=== PATIENT | female | born 1980 | race Caucasian/White ===

== ENCOUNTER → 2017-04-19 | Day surgery (SDC) | payer OTHER ==
[~2017-04-19] MED LIST: FENTANYL CITRATE/PF 100MCG/2 ML INJ ONE; HYOSCYAMINE SULFATE 0.5 MG/ML AMP ONE; LEVOTHYROXINE; LIDOCAINE HCL 2% LOCAL INJ 5 ML SDV VIAL INJ ONE; MIDAZOLAM HCL 2 MG/2 ML VIAL ONE; MULTIVITAMINS1 EAC7 PO; PROPOFOL IV EMULSION 10 MG/ML 50 ML VIAL ONE; VITAMIN A PO; VITAMIN B12 PO; VITAMIN C PO
--- NOTE | 2017-04-19 10:06 | Operative Report ---
DATE OF PROCEDURE: April 19, 2017 REFERRING PHYSICIAN: Dr. Sumanth Carlson PROCEDURES PERFORMED 1. Esophagogastroduodenoscopy with biopsies. 2. Colonoscopy with polypectomy. INDICATIONS FOR EGD: Upper abdominal pain and nausea. INDICATIONS FOR COLONOSCOPY: Colorectal cancer screening, personal history of colon polyps, history of bright red blood per rectum, and constipation. MEDICATION: Patient was done under MAC. Please see anesthesiologist's note. PROCEDURE: With the patient in the left lateral decubitus position, the flexible fiberoptic Olympus gastroscope was introduced into the esophagus under direct visualization without any difficulty. There were longitudinal furrows noted in the esophagus, which are compatible with eosinophilic esophagitis and biopsies were obtained. The scope was then advanced with ease into the stomach. The patient is status post Byron-en-Y. Anastomosis appeared intact. There was some patchy intense erythema and low-grade edema noted in the gastric stump, and biopsies were obtained and sent to stain for H. pylori. The enteric loop appeared to be patent. The scope was then withdrawn back into the stomach and retroflexed. Mucosa overlying the fundus and the cardia appeared to be within normal limits. The scope was then straightened out. The stomach was decompressed. The scope was subsequently withdrawn. Patient tolerated the procedure well. IMPRESSION 1. Rule out eosinophilic esophagitis. 2. Status post Byron-en-Y, anastomosis is intact. 3. Gastritis, gastric stump. Biopsies obtained and sent to stain for Helicobacter pylori. PLAN: Follow up histology. Initiate Protonix 40 mg 1 p.o. q.a.m. a.c. Patient was then turned around. After adequate lubrication of the anal canal, a flexible fiberoptic Olympus colonoscope was inserted into the rectum with ease and advanced all the way to the cecum. It was then withdrawn slowly. Mucosa overlying the cecum appeared to be within normal limits. One polyp was snared from the ascending colon. The transverse colon appeared to be within normal limits. One polyp was hot biopsied from the descending colon. One polyp was snared and 1 polyp was hot biopsied from the sigmoid colon. The rectum appeared to be within normal limits. The scope was then retroflexed into the distal rectum. Moderate size internal hemorrhoids were noted, none of which was actively bleeding. The scope was then straightened out. The rectosigmoid area, as well as the distal rectal area were decompressed. The scope was subsequently withdrawn. Patient tolerated the procedure well. IMPRESSION 1. Ascending colon polyp, snared. 2. Descending colon polyp, hot biopsied. 3. Sigmoid colon polyps times 2, one snared one hot biopsied. 4. Internal hemorrhoids, none actively bleeding. PLAN: Follow up histology. Initiate high-fiber and low-fat diet. Initiate high-fiber supplement. Start Linzess 145 mcg 1 p.o. q.a.m. a.c. Patient will need a followup colonoscopy in 2-3 years. Job#: [id number] [place] cc:JEREMIAS CARLSON DO
== END | disposition home or self-care (01) ==
LOC: OR 06:08
PROVIDERS: ATTEND Internal Medicine Gastroenterology
DX: K29.70 Gastritis, unspecified, without bleeding (principal); D12.2 Benign neoplasm of ascending colon; Z98.84 Bariatric surgery status; K22.8 Other specified diseases of esophagus; K64.8 Other hemorrhoids; K59.00 Constipation, unspecified; N20.0 Calculus of kidney; Z68.25 Body mass index [BMI] 25.0-25.9, adult
CPT/HCPCS: 43239; 45384; 45385; J1980; J2001; J2250

== ENCOUNTER 2017-05-18 15:38 | Observation (INO) | payer OTHER ==
[~2017-05-18] VITALS: Ht 157.5 cm; Wt 59.0 kg
[~2017-05-18 15:38] MED LIST changes: -FENTANYL CITRATE/PF 100MCG/2 ML INJ ONE; -HYOSCYAMINE SULFATE 0.5 MG/ML AMP ONE; -LIDOCAINE HCL 2% LOCAL INJ 5 ML SDV VIAL INJ ONE; -MIDAZOLAM HCL 2 MG/2 ML VIAL ONE; -PROPOFOL IV EMULSION 10 MG/ML 50 ML VIAL ONE
[2017-05-18] MEDS: SODIUM CHLORIDE 0.9% 1000ML 1,000 ML IV SCH ×2 (16:00→23:47)
[2017-05-18 16:23] VITALS: BP 113/70
[2017-05-18] MEDS ORDERED: OMEPRAZOLE20 MG (16:29)
[2017-05-18] MEDS: HYDROMORPHONE 1MG/1ML INJ IV PRN ×2 (17:40→23:44)
[2017-05-18 20:00] VITALS: BP 106/60
[2017-05-19] VITALS (9 sets, daily range): BP systolic 99–111; BP diastolic 53–59
[2017-05-19] MEDS ORDERED: DONNATAL/LIDOCAINE/MAALOX 30 ML SUSP PO ONE (03:30)
[2017-05-19] MEDS ORDERED: MAGNESIUM/ALUMINUM/SIMETHICONE 30 ML UDC PO ONE (04:20)
[2017-05-19] MEDS ORDERED: BELLADONNA ALK/PHENOBARBITAL 5 ML UDC PO ONE (04:21)
[2017-05-19] MEDS ORDERED: LIDOCAINE VISC 2% SOLN 100ML BLT PO ONE (04:22)
[2017-05-19] MEDS ORDERED: LIDOCAINE VISC 2% SOLN 15 ML UDC PO ONE (04:30)
[2017-05-19] MEDS ORDERED: PANTOPRAZOLE 40 MG 10ML VIAL IV STA (04:36)
[2017-05-19] MEDS ORDERED: ONDANSETRON HCL INJ 2 MG/ML VIAL IV PRN (05:00)
[2017-05-19] MEDS: PANTOPRAZOL 40MG/SOD CHL 0.9% 250 ML IV SCH ×3 (05:10→21:17)
[2017-05-19 05:25] LABS: CLARITY,URINE CLEAR (CLEAR); COLOR,URINE YELLOW (YELLOW); KETONES,URINE TRACE (NEGATIVE); LEUKOCYTE ESTERASE ,URINE NEGATIVE (NEGATIVE); NITRITE,URINE NEGATIVE (NEGATIVE); PROTEIN,URINE DIPSTICK NEGATIVE (NEGATIVE); URINE UROBILINOGEN 1 mg/dL (0.2 - 1)
[2017-05-19 05:26] LABS: BILIRUBIN,URINE NEGATIVE (NEGATIVE)
[2017-05-19 05:50] LABS: BACTERIA,URINE RARE /HPF; EPITHELIAL CELLS,URINE FEW /LPF; RBC,URINE 0-5 /HPF (0-5); WBC,URINE (MAN) 0-5 /HPF (0-5)
[2017-05-19 06:57] LABS: BASOPHILS % 0.9 % (0.0-1.0); EOSINOPHILS # (AUTO) 0.2 (0.0-0.4); EOSINOPHILS % 3.9 % (0.0-6.0); HEMATOCRIT 31.9 % (34.2-44.1); LYMPHOCYTES # (AUTO) 2.2 (1.0-3.2); LYMPHOCYTES % 46.1 % (18.0-39.1); MEAN CORPUSCULAR HEMOGLOBIN 32.1 pg (28-32); MEAN CORPUSCULAR HGB CONC 34.5 g/dL (31-35); MONOCYTES # (AUTO) 0.6 (0.2-0.8); MONOCYTES % 11.8 % (4.4-11.3); NEUTROPHILS # (AUTO) 1.7 (2.1-6.9); NEUTROPHILS % 37.1 % (38.7-80.0); PLATELET COUNT 154 x10e3/uL (140-360); RED BLOOD COUNT 3.43 x10e6/uL (3.6-5.1); RED CELL DISTRIBUTION WIDTH 11.9 % (11.7-14.4)
[2017-05-19 07:15] LABS: ALANINE AMINOTRANSFERASE 23 IU/L (0-55); ALBUMIN/GLOBULIN RATIO 1.4 (0.8-2.0); ALKALINE PHOSPHATASE 47 IU/L (40-150); ANION GAP 7.1 mmol/L (8-16); BLOOD UREA NITROGEN 8 mg/dL (7-26); BUN/CREATININE RATIO 12 (6-25); CALCIUM 8.3 mg/dL (8.4-10.2); CARBON DIOXIDE 27 mmol/L (22-29); CHLORIDE 110 mmol/L (98-107); CREATININE, SERUM 0.67 mg/dL (0.57-1.11); EST GLOMERULAR FILTRATION RATE > 60 ML/MIN (60-); GLUCOSE 84 mg/dL (74-118); POTASSIUM 4.1 mmol/L (3.5-5.1); SODIUM 140 mmol/L (136-145)
--- NOTE | 2017-05-19 07:15 | History and Physical ---
GI SPECIALIST: Dr. Héctor Arambula PRIMARY CARE PHYSICIAN: Dr. Vasquez CHIEF COMPLAINT: Abdominal pain. HISTORY OF PRESENT ILLNESS: This is a 37-year-old woman with a history of obesity, status post laparoscopic cholecystectomy. The patient had undergone a Byron-en-Y for morbid obesity, now developing severe left-sided abdominal pain while attending to her child to the clinic. The patient states that the pain was so severe she was unable to walk and had difficulty in getting home. She had severe nausea, but no vomiting. Denies any diarrhea or fever. She had mild chills. The pain has persisted overnight. She is admitted for further evaluation and management. Denies any chest pain. PAST MEDICAL HISTORY: Obesity, status post banding in 2012, status post revision in 2017 with some resection of the intestine/Byron-en-Y, cervical cancer in 2017, status post hysterectomy, hypothyroidism, and colonic polyps. PAST SURGICAL HISTORY: Cholecystectomy, , sinus surgery, banding in 2012, status post revision and Byron-en-Y in 2016, hysterectomy in 2017, ureteral stent. ALLERGIES: PER ELECTRONIC MEDICAL RECORD. FAMILY HISTORY/SOCIAL HISTORY: The patient is . She has 3 children. No alcohol, illicits or cigarettes. Crohn's in a child. MEDICATIONS: Per electronic medical record. REVIEW OF SYSTEMS: Denies any dizziness or chest pain. PHYSICAL EXAMINATION VITAL SIGNS: Have been reviewed. GENERAL: A tired-appearing woman resting in bed. HEENT: Anicteric. Pupils respond to light. No oral lesions. CARDIOVASCULAR: Normal S1 and S2. LUNGS: Moderate breath sounds. ABDOMEN: Soft and nondistended. She has mild tenderness in the upper abdomen just slightly left of the midline. EXTREMITIES: No edema or calf tenderness. NEUROLOGICAL: Alert and oriented times 3. Moving all extremities. SKIN: Dry. PSYCHIATRIC: Normal affect. LABS: Reviewed. MEDICATIONS: Reviewed. ASSESSMENT AND PLAN: This is a 37-year-old woman with: 1. Abdominal pain: Will treat with p.r.n. pain medications. Computerized tomography scan at the outside facility of the abdomen and pelvis with contrast showed no acute abnormality. 2. Intractable nausea: P.r.n. antiemetics. 3. Hypothyroidism: Will check a TSH. 4. Prophylaxis: Will use proton pump inhibitor and sequential compression devices. 5. Disposition: Follow up gastroenterology recommendations. May need endoscopy. Will defer to gastroenterology services. Job#: [id number] RI
[2017-05-19] MEDS: HYDROMORPHONE 1MG/1ML INJ IV PRN ×2 (07:27→11:50)
[2017-05-19 07:42] LABS: AMYLASE 17 U/L (25-125); LIPASE 11 U/L (8-78)
[2017-05-19] MEDS: SODIUM CHLORIDE 0.9% 1000ML 1,000 ML IV SCH ×2 (11:50→23:45)
[2017-05-19] MEDS ORDERED: ACETAMINOPHEN 325 MG TAB PO PRN (15:45)
[2017-05-19] MEDS ORDERED: ACETAMINOPHEN 1000 MG/100 ML IV PRN (20:15)
[2017-05-20] VITALS: BP 102/52
[2017-05-20] MEDS: SODIUM CHLORIDE 0.9% 1000ML 1,000 ML IV SCH ×2 (01:04→11:23)
[2017-05-20] MEDS: PANTOPRAZOL 40MG/SOD CHL 0.9% 250 ML IV SCH (02:20)
[2017-05-20 04:00] VITALS: BP 115/56
[2017-05-20 07:30] VITALS: BP 115/56
[2017-05-20] MEDS: SUCRALFATE 1 GM TAB PO SCH ×2 (07:35→12:09)
[2017-05-20 07:54] VITALS: BP 107/55
[2017-05-20 11:52] VITALS: BP 108/59
[2017-05-20 16:05] VITALS: BP 108/58
[2017-05-20] MEDS ORDERED: CARAFATE1 GM/10 ML PO (16:06)
== END 2017-05-20 16:25 | disposition home or self-care (01) ==
LOC: MED/SURG 15:38
PROVIDERS: ADMIT Internal Medicine; ATTEND Internal Medicine
DX: R10.13 Epigastric pain (principal); R11.2 Nausea with vomiting, unspecified; E03.9 Hypothyroidism, unspecified; Z98.84 Bariatric surgery status; Z90.49 Acquired absence of other specified parts of digestive tract; K63.5 Polyp of colon
CPT/HCPCS: 36415; 80053; 81001; 82150; 83690; 84443; 85025; G0378 ×3; J1170 ×2; J2405; J7030 ×3

== ENCOUNTER 2018-02-16 10:07 | Emergency (ER) | payer OTHER ==
[~2018-02-16] VITALS: Ht 160 cm; Wt 49.0 kg
[~2018-02-16 10:07] MED LIST changes: +CARAFATE1 GM/10 ML PO; +OMEPRAZOLE20 MG
[2018-02-16] MEDS ORDERED: SOD PHOSPHATE/SOD BIPHOSPHATE ENEMA 132 ML BTL PR ONE (10:45)
[2018-02-16 11:02] LABS: COLOR,URINE YELLOW (YELLOW)
[2018-02-16 11:03] LABS: CLARITY,URINE SL CLOUDY (CLEAR)
[2018-02-16 11:04] LABS: BILIRUBIN,URINE NEGATIVE (NEGATIVE); KETONES,URINE NEGATIVE (NEGATIVE); LEUKOCYTE ESTERASE ,URINE NEGATIVE (NEGATIVE); NITRITE,URINE NEGATIVE (NEGATIVE); PROTEIN,URINE DIPSTICK NEGATIVE (NEGATIVE); URINE UROBILINOGEN 0.2 mg/dL (0.2 - 1)
[2018-02-16 11:05] LABS: EPITHELIAL CELLS,URINE RARE /LPF; MUCUS,URINE RARE (RARE)
--- NOTE | 2018-02-16 12:15 | NUR ---
per MARK Baxter ok for pt to self administer; pt self administered fleet enema
[2018-02-16] MEDS ORDERED: HYOSCYAMINE SULFATE 0.5 MG/ML INJ IV ONE (12:45)
[2018-02-16 12:46] LABS: BASOPHILS # (AUTO) 0.1 (0.0-0.1); EOSINOPHILS # (AUTO) 0.2 (0.0-0.4); EOSINOPHILS % 3.9 % (0.0-6.0); HEMATOCRIT 40.4 % (34.2-44.1); LYMPHOCYTES # (AUTO) 1.7 (1.0-3.2); LYMPHOCYTES % 34.6 % (18.0-39.1); MEAN CORPUSCULAR HEMOGLOBIN 31.9 pg (28-32); MEAN CORPUSCULAR HGB CONC 34.7 g/dL (31-35); MONOCYTES # (AUTO) 0.4 (0.2-0.8); MONOCYTES % 8.7 % (4.4-11.3); NEUTROPHILS # (AUTO) 2.5 (2.1-6.9); NEUTROPHILS % 51.6 % (38.7-80.0); PLATELET COUNT 195 x10e3/uL (140-360); RED BLOOD COUNT 4.39 x10e6/uL (3.6-5.1); RED CELL DISTRIBUTION WIDTH 11.9 % (11.7-14.4)
[2018-02-16 13:02] LABS: ALANINE AMINOTRANSFERASE 47 IU/L (0-55); ALBUMIN 4.2 g/dL (3.5-5.0); ALBUMIN/GLOBULIN RATIO 1.5 (0.8-2.0); ALKALINE PHOSPHATASE 70 IU/L (40-150); AMYLASE 23 U/L (25-125); ANION GAP 14.3 mmol/L (8-16); BLOOD UREA NITROGEN 9 mg/dL (7-26); BUN/CREATININE RATIO 11 (6-25); CALCIUM 9.3 mg/dL (8.4-10.2); CARBON DIOXIDE 24 mmol/L (22-29); CHLORIDE 102 mmol/L (98-107); CREATININE, SERUM 0.84 mg/dL (0.57-1.11); EST GLOMERULAR FILTRATION RATE > 60 ML/MIN (60-); GLUCOSE 78 mg/dL (74-118); LIPASE 16 U/L (8-78); MAGNESIUM 2.4 MG/DL (1.3-2.1); POTASSIUM 3.3 mmol/L (3.5-5.1); SODIUM 137 mmol/L (136-145)
[2018-02-16] MEDS ORDERED: POTASSIUM CHLORIDE 20 MEQ TAB CR PO STA (13:15)
[2018-02-16 14:17] VITALS: BP 106/70
--- NOTE | 2018-02-16 14:17 | NUR ---
PER MARK HI PT NOTED EATING CHIC HANS EARLBATSHEVA AT BEDSIDE
[2018-02-17] MEDS ORDERED: LEVSIN0.125 MG PO (11:18)
[2018-02-17] MEDS ORDERED: LINZESS PO (11:18)
[2018-02-17] MEDS ORDERED: PANTOPRAZOLE SO40 MG PO (11:18)
[2018-02-17] MEDS ORDERED: ZOFRAN4 MG PO (11:18)
[2018-02-17] MEDS ORDERED: REGLAN10 MG PO (11:19)
== END 2018-02-16 14:24 | disposition home or self-care (01) ==
LOC: ER 10:19
DX: R10.13 Epigastric pain (principal); R10.84 Generalized abdominal pain; R11.0 Nausea; K59.00 Constipation, unspecified; E87.6 Hypokalemia; K52.9 Noninfective gastroenteritis and colitis, unspecified
CPT/HCPCS: 36415; 80053; 81001; 82150; 83690; 83735; 85025; 87086; 99284

== ENCOUNTER → 2018-02-18 | Day surgery (SDC) | payer OTHER ==
[~2018-02-18] MED LIST changes: +FENTANYL CITRATE/PF 100MCG/2 ML INJ ONE; +HYOSCYAMINE SULFATE 0.5 MG/ML INJ ONE; +LEVSIN0.125 MG PO; +LIDOCAINE HCL 2% LOCAL INJ 5 ML SDV VIAL INJ ONE; +LINZESS PO; +METOCLOPRAMIDE HCL 10 MG/2ML VIAL ONE; +MIDAZOLAM HCL 2 MG/2 ML VIAL ONE; +PANTOPRAZOLE SO40 MG PO; +PROPOFOL IV EMULSION 10 MG/ML 50 ML VIAL ONE; +REGLAN10 MG PO; +ZOFRAN4 MG PO
[2018-02-18 20:10] VITALS: BP 105/78
--- NOTE | 2018-02-18 20:43 | Operative Report ---
DATE OF PROCEDURE: February 18, 2018 REFERRING PHYSICIAN: Dr. Jeremias Carlson. PROCEDURES PERFORMED 1. EGD with biopsies. 2. Colonoscopy with polypectomy. INDICATIONS FOR ESOPHAGOGASTRODUODENOSCOPY: Upper abdominal pain, nausea, and vomiting. INDICATIONS FOR COLONOSCOPY: Lower abdominal pain, severe constipation, and history of colon polyps. MEDICATION: Patient was done under MAC. Please see anesthesiologist's note. PROCEDURE: With the patient in left lateral decubitus position, a flexible fiberoptic Olympus gastroscope was introduced into the esophagus under direct visualization without any difficulty. There was some patchy erythema noted in distal esophagus. GE junction was noted to be at 37 cm from the incisors. The scope was then advanced with ease into the stomach and at approximately 10 cm distal to the lower esophageal sphincter, an intact Byron-en-Y anastomosis was noted. There was a marginal ulcer just below the anastomosis. There were no active bleeding nor stigmata of recent hemorrhage. The efferent loop was patent. The mucosa overlying the gastric stump revealed patchy erythema and moderate edema, and biopsies were obtained and sent to stain for H. pylori. The scope was subsequently withdrawn. Patient tolerated the procedure well. IMPRESSION 1. Mild distal esophagitis. 2. Stump gastritis. 3. Status post Byron-en-Y anastomosis intact. 4. Marginal ulcer without active bleeding or stigmata of recent hemorrhage. PLAN: Follow up histology. Increase Protonix to 40 mg 1 p.o. a.c. b.i.d. Patient was then turned around and after adequate lubrication of the anal canal, a flexible fiberoptic Olympus colonoscope was advanced all the way from the rectum to the cecum with some difficulty and the colon was excessively tortuous and sharply angulated and was difficult to negotiate and was suboptimally visualized. The scope was then withdrawn slowly. Whatever was visualized and mucosa overlying the cecum, ascending colon, transverse colon, descending colon, and sigmoid colon grossly appeared to be within normal limits. There was no obvious obstructing or constricting lesions. A minute polyp was hot biopsied from the proximal rectum. The scope was then retroflexed into the distal rectum and small internal hemorrhoids were noted, none of which was actively bleeding. The scope was then straightened out and was subsequently withdrawn. Patient tolerated the procedure well. IMPRESSION 1. Colon excessively tortuous and sharply angulated, suboptimally visualized. 2. Rectal polyp, hot biopsied. 3. Internal hemorrhoids, none actively bleeding. PLAN: Follow up histology. Take Linzess or initiate Linzess 290 mcg 1 p.o. q.a.m. a.c., increase water intake to 64 ounces of water a day. Patient might benefit from a followup colonoscopy in 3 to 5 years. Job#: [id number] KENZIE cc:JEREMIAS CARLSON DO
== END | disposition home or self-care (01) ==
LOC: OR 13:43
PROVIDERS: ATTEND Internal Medicine Gastroenterology
DX: K29.70 Gastritis, unspecified, without bleeding (principal); D12.2 Benign neoplasm of ascending colon; K62.1 Rectal polyp; K25.9 Gastric ulcer, unspecified as acute or chronic, without hemorrhage or perforation; K21.9 Gastro-esophageal reflux disease without esophagitis; K56.609 Unspecified intestinal obstruction, unspecified as to partial versus complete obstruction; K59.00 Constipation, unspecified; K20.9 Esophagitis, unspecified; Z98.84 Bariatric surgery status; K64.8 Other hemorrhoids; D64.9 Anemia, unspecified; R53.83 Other fatigue; Z88.6 Allergy status to analgesic agent
CPT/HCPCS: 43239; 45384; J1980; J2001; J2250; J2765

== ENCOUNTER → 2018-06-15 | Outpatient (CLI) | payer OTHER ==
[~2018-06-15] MED LIST changes: -FENTANYL CITRATE/PF 100MCG/2 ML INJ ONE; -HYOSCYAMINE SULFATE 0.5 MG/ML INJ ONE; -LIDOCAINE HCL 2% LOCAL INJ 5 ML SDV VIAL INJ ONE; -METOCLOPRAMIDE HCL 10 MG/2ML VIAL ONE; -MIDAZOLAM HCL 2 MG/2 ML VIAL ONE; -PROPOFOL IV EMULSION 10 MG/ML 50 ML VIAL ONE
--- NOTE | 2018-06-15 09:59 | Diagnostic Imaging Report ---
EXAM: US ABDOMEN COMPLETE INDICATION: Left upper quadrant pain. COMPARISON: None TECHNIQUE: Transverse and longitudinal lora scale and color doppler sonographic images of the abdomen were obtained. FINDINGS: LIVER 11.6 cm in the right midclavicular line. Normal echogenicity of the liver with normal contour, no masses. SPLEEN 9.7 cm in maximum diameter. Normal echogenicity, no masses. GALLBLADDER Status post cholecystectomy. BILE DUCTS No intrahepatic biliary dilation. Common bile duct measures 0.6 cm. PANCREAS: Visualized portions are normal. RIGHT KIDNEY: 11.2 cm Echogenicity: Normal Collecting System: No hydronephrosis Stones: None Cyst/Mass: None LEFT KIDNEY: 10.7 cm Echogenicity: Normal Collecting System: No hydronephrosis Stones: None Cyst/Mass: None VESSELS: Aorta: Visualized portions are within normal size limits Inferior Vena Cava: Visualized portions are normal Main Portal Vein: 1.3 cm, normal size with hepatopetal flow. FREE FLUID: None IMPRESSION: Mildly prominent common bile duct, likely reflecting post cholecystectomy reservoir effect. Signed by: Dr. Chayo Vaz MD on 06/15/2018 9:56 AM
== END ==
LOC: US 08:55
PROVIDERS: ATTEND Internal Medicine Gastroenterology
DX: R10.12 Left upper quadrant pain (principal)
CPT/HCPCS: 76700

== ENCOUNTER 2018-10-18 18:07 | Emergency (ER) | payer OTHER ==
[~2018-10-18] VITALS: Ht 160 cm; Wt 49.0 kg
--- OUTSIDE RECORDS SUMMARY | 2018-10-18 18:10 | XMS REPORT ---
Author Author [facility] Address Unknown Phone Unavailable Care Team Providers Care Is Technician Name Role Phone BRIE JAMES Unavailable Unavailable Problems This patient has no known problems. Allergies, Adverse Reactions, Alerts This patient has no known allergies or adverse reactions. Medications This patient has no known medications. Results Test Description Test Time Test Comments Text Results Atomic Results Result Comments US ABDOMEN COMPLETE 2018-06-15 09:51:00 [facility] [address] [place] [address] Patient Name: LEISA ORTIZ MR #: [id number] : 1980 Age/Sex: 38/F Req #: [id number] Adm Physician: Ordered by: BRIE JAMES MD Report #: [id number] Location: Room/Bed: Procedure: [id number] US/US ABDOMEN COMPLETE Exam Date: 06/15/18 Exam Time: 925 REPORT STATUS: Signed EXAM: US ABDOMEN COMPLETE INDICATION: Left upper quadrant pain. COMPARISON: None TECHNIQUE: Transverse and longitudinal lora scale and color doppler sonographic images of the abdomen were obtained. FINDINGS: LIVER 11.6 cm in the right midclavicular line. Normal echogenicity of the liver with normal contour, no masses. SPLEEN 9.7 cm in maximum diameter. Normal echogenicity, no masses. GALLBLADDER Status post cholecystectomy. BILE DUCTS No intrahepatic biliary dilation. Common bile duct measures 0.6 cm. PANCREAS: Visualized portions are normal. RIGHT KIDNEY: 11.2 cm Echogenicity: Normal Collecting System: No hydronephrosis Stones: None Cyst/Mass: None LEFT KIDNEY: 10.7 cm Echogenicity: Normal Collecting System: No hydronephrosis Stones: None Cyst/Mass: None VESSELS: Aorta: Visualized portions are within normal size limits Inferior Vena Cava: Visualized portions are normal Main Portal Vein: 1.3 cm, normal size with hepatopetal flow. FREE FLUID: None IMPRESSION: Mildly prominent common bile duct, likely reflecting post cholecystectomy reservoir effect. Signed by: Dr. Dc Hoffman MD on 06/15/2018 9:56 AM Dictated By: DC HOFFMAN MD Transcribed By: LOUIE on 06/15/18955 COPY TO: BRIE JAMES MD
--- OUTSIDE RECORDS SUMMARY | 2018-10-18 18:10 | XMS REPORT | Clinical Summary ---
Author Author [facility] Address Unknown Phone Unavailable Care Team Providers Care Stained Glass Window Designer Name Role Phone Asked, No Pcp PCP Unavailable Allergies Not on File Medications No known medications Active Problems No known active problems Encounters Care Team Description Date Type Specialty Joelle Ramires, MARK-C Fecal urgency (Primary Dx); Internal hemorrhoids with complication 03/11/2018 Office Visit General Surgery Kishore Guerrero MD Alagugurusamy, [place] Burnett, MARK-C Constipation, unspecified constipation type (Primary Dx) 03/10/2018 Office Visit General Surgery after 10/17/2017 Social History Date Tobacco Use Types Packs/Day Years Used Never Assessed Sex Assigned at Date Recorded Not on file Industry Job Start Date Occupation Not on file Not on file Not on file Travel End Travel History Travel Start No recent travel history available. Last Filed Vital Signs Reading Time Taken Comments Vital Sign 115/62 03/10/2018 3:50 PM EXCELLENCE COACH Blood Pressure 67 03/10/2018 3:50 PM EXCELLENCE COACH Pulse 37.1 C (98.7 F) 03/10/2018 3:50 PM EXCELLENCE COACH Temperature - - Respiratory Rate - - Oxygen Saturation - - Inhaled Oxygen Concentration 49.9 kg (110 lb) 03/10/2018 3:50 PM EXCELLENCE COACH Weight 160 cm (5' 3") 03/10/2018 3:50 PM EXCELLENCE COACH Height 19.49 03/10/2018 3:50 PM EXCELLENCE COACH Body Mass Index Plan of Treatment Health Maintenance Due Date Last Done Comments CERVICAL CANCER SCREENING 2002 INFLUENZA VACCINE 09/08/2018 Results Not on fileafter 10/17/2017 Insurance Type Payer Benefit Subscriber ID Effective Phone Address Plan / Dates Group PPO AETNA AETNA PPO xxxxxxxxxx [id number] OPEN resent CHOICE Advance Directives For more information, please contact: [phone] 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
[2018-10-18 18:56] LABS: BILIRUBIN,URINE NEGATIVE (NEGATIVE); CLARITY,URINE SL CLOUDY (CLEAR); KETONES,URINE NEGATIVE (NEGATIVE); LEUKOCYTE ESTERASE ,URINE NEGATIVE (NEGATIVE); NITRITE,URINE NEGATIVE (NEGATIVE); PROTEIN,URINE DIPSTICK TRACE (NEGATIVE); URINE UROBILINOGEN 4 mg/dL (0.2 - 1)
[2018-10-18 18:57] LABS: COLOR,URINE STRAW (YELLOW)
[2018-10-18 18:58] LABS: PREGNANCY TEST, URINE NEGATIVE (NEGATIVE)
[2018-10-18 19:08] LABS: EPITHELIAL CELLS,URINE FEW /LPF
== END 2018-10-18 20:30 | disposition left against medical advice (07) ==
LOC: ER 18:07
DX: R10.9 Unspecified abdominal pain (principal)
CPT/HCPCS: 81001; 81025

== ENCOUNTER 2018-10-19 08:12 | Observation (INO) | payer OTHER ==
[~2018-10-19] VITALS: Ht 160 cm; Wt 52.2 kg
--- OUTSIDE RECORDS SUMMARY | 2018-10-19 08:15 | XMS REPORT | Clinical Summary ---
Author Author [facility] Organization [facility] Address Unknown Phone Unavailable Care Team Providers Care Military Science Teacher Name Role Phone Asked, No Pcp PCP [...] Dx) 03/10/2018 Office Visit General Surgery after 10/18/2017 Social History Date Tobacco Use Types Packs/Day Years Used Never Assessed Sex Assigned at Date Recorded Not on file Industry Job Start Date Occupation Not on file Not on file Not on file Travel End Travel History Travel Start No recent travel history available. Last Filed Vital Signs Reading Time Taken Comments Vital Sign 115/62 03/10/2018 3:50 PM MINIBUS DRIVER Blood Pressure 67 03/10/2018 3:50 PM MINIBUS DRIVER Pulse 37.1 C (98.7 F) 03/10/2018 3:50 PM MINIBUS DRIVER Temperature - - Respiratory Rate - - Oxygen Saturation - - Inhaled Oxygen Concentration 49.9 kg (110 lb) 03/10/2018 3:50 PM MINIBUS DRIVER Weight 160 cm (5' 3") 03/10/2018 3:50 PM MINIBUS DRIVER Height 19.49 03/10/2018 3:50 PM MINIBUS DRIVER Body Mass Index Plan of Treatment Health Maintenance Due Date Last Done Comments CERVICAL CANCER SCREENING 2002 INFLUENZA VACCINE 09/08/2018 Results Not on fileafter 10/18/2017 Insurance Type Payer Benefit Subscriber ID Effective Phone Address Plan / Dates Group PPO AETNA AETNA PPO xxxxxxxxxx [id number] OPEN resent CHOICE Advance Directives For more information, please contact: [phone] Patient Corrections Caseworker Explanation Type Date Recorded Advance Directives, Living Will and Medical Power of Silk Washing Machine Operator
--- NOTE | 2018-10-19 08:57 | NUR ---
SPOKE WITH LEOBARDO FROM [facility] REGARDS TO GETTING PATIENTS RECORDS/CT RESULTS. FAXING OVER RELEASE OF INFORMATION.
[2018-10-19 09:08] LABS: BASOPHILS % 0.4 % (0.0-1.0); EOSINOPHILS % 0.8 % (0.0-6.0); HEMATOCRIT 39.7 % (34.2-44.1); HEMOGLOBIN 13.7 g/dL (12.0-16.0); LYMPHOCYTES # (AUTO) 0.7 (1.0-3.2); LYMPHOCYTES % 28.2 % (18.0-39.1); MEAN CORPUSCULAR HEMOGLOBIN 31.8 pg (28-32); MEAN CORPUSCULAR HGB CONC 34.5 g/dL (31-35); MEAN CORPUSCULAR VOLUME 92.1 fL (81-99); MONOCYTES # (AUTO) 0.2 (0.2-0.8); MONOCYTES % 9.8 % (4.4-11.3); NEUTROPHILS # (AUTO) 1.5 (2.1-6.9); NEUTROPHILS % 60.8 % (38.7-80.0); PLATELET COUNT 159 x10e3/uL (140-360); RED BLOOD COUNT 4.31 x10e6/uL (3.6-5.1); RED CELL DISTRIBUTION WIDTH 11.9 % (11.7-14.4)
[2018-10-19 09:13] LABS: BILIRUBIN,URINE NEGATIVE (NEGATIVE); CLARITY,URINE SL CLOUDY (CLEAR); COLOR,URINE YELLOW (YELLOW); KETONES,URINE 1+ (NEGATIVE); LEUKOCYTE ESTERASE ,URINE NEGATIVE (NEGATIVE); NITRITE,URINE NEGATIVE (NEGATIVE); PROTEIN,URINE DIPSTICK TRACE (NEGATIVE); URINE UROBILINOGEN 1 mg/dL (0.2 - 1)
[2018-10-19] MEDS ORDERED: ONDANSETRON HCL INJ 2MG/ML 2ML 2 MG/ML VIAL IV ONE (09:15)
[2018-10-19 09:19] LABS: INR 0.98; PROTHROMBIN TIME 13.5 seconds (11.9-14.5)
[2018-10-19 09:20] LABS: PARTIAL THROMBOPLASTIN TIME 37.1 seconds (23.8-35.5)
[2018-10-19 09:26] LABS: ALANINE AMINOTRANSFERASE 22 IU/L (0-55); ALBUMIN 3.8 g/dL (3.5-5.0); ALBUMIN/GLOBULIN RATIO 1.5 (0.8-2.0); ALKALINE PHOSPHATASE 55 IU/L (40-150); ANION GAP 13.4 mmol/L (8-16); BLOOD UREA NITROGEN 12 mg/dL (7-26); BUN/CREATININE RATIO 14 (6-25); CALCIUM 9.1 mg/dL (8.4-10.2); CARBON DIOXIDE 22 mmol/L (22-29); CHLORIDE 107 mmol/L (98-107); CREATININE, SERUM 0.83 mg/dL (0.57-1.11); EST GLOMERULAR FILTRATION RATE > 60 ML/MIN (60-); GLUCOSE 89 mg/dL (74-118); POTASSIUM 3.4 mmol/L (3.5-5.1); SODIUM 139 mmol/L (136-145)
[2018-10-19] MEDS ORDERED: MORPHINE SULFATE 2 MG/ML SYR 1ML IV ONE (09:30)
--- NOTE | 2018-10-19 09:36 | NUR ---
RECALLED [facility] TO GET [facility] RESULTS FOR PATIENT. STATED, "WE ARE BUSY AT THE MOMENT, WE WILL GET IT TO YOU SOON POSSIBLE"
[2018-10-19 09:44] LABS: BACTERIA,URINE MANY /HPF; EPITHELIAL CELLS,URINE MODERATE /LPF; RBC,URINE 0-5 /HPF (0-5); WBC,URINE (MAN) 0-5 /HPF (0-5)
[2018-10-19 09:45] LABS: AMORPHOUS SEDIMENT,URINE FEW (FEW); MUCUS,URINE MANY (RARE)
[2018-10-19] MEDS ORDERED: HYDROMORPHONE 1MG/1ML INJ IV ONE (10:00)
[2018-10-19] MEDS ORDERED: ONDANSETRON HCL INJ 2MG/ML 2ML 2 MG/ML VIAL IV PRN (10:30)
[2018-10-19 10:41] LABS: LIPASE 18 U/L (8-78)
--- OUTSIDE RECORDS SUMMARY | 2018-10-19 10:48 | XMS REPORT | Clinical Summary ---
Author Author [facility] Organization [facility] Address Unknown Phone Unavailable Care Team Providers Care Field Services Analyst Name Role Phone Asked, No Pcp PCP [...] Comments Vital Sign 115/62 03/10/2018 3:50 PM SPORTS MEDICINE SPECIALIST Blood Pressure 67 03/10/2018 3:50 PM SPORTS MEDICINE SPECIALIST Pulse 37.1 C (98.7 F) 03/10/2018 3:50 PM SPORTS MEDICINE SPECIALIST Temperature - - Respiratory Rate - - Oxygen Saturation - - Inhaled Oxygen Concentration 49.9 kg (110 lb) 03/10/2018 3:50 PM SPORTS MEDICINE SPECIALIST Weight 160 cm (5' 3") 03/10/2018 3:50 PM SPORTS MEDICINE SPECIALIST Height 19.49 03/10/2018 3:50 PM SPORTS MEDICINE SPECIALIST Body Mass Index Plan of Treatment Health Maintenance Due Date Last Done Comments CERVICAL CANCER SCREENING 2002 INFLUENZA VACCINE 09/08/2018 Results Not on fileafter 10/18/2017 Insurance Type Payer Benefit Subscriber ID Effective Phone Address Plan / Dates Group PPO AETNA AETNA PPO xxxxxxxxxx [id number] OPEN resent CHOICE Advance Directives For more information, please contact: [phone] 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
[2018-10-19] MEDS ORDERED: LEVOFLOXACIN 500MG/D5W 100ML 100 ML IV ONE (12:15)
[2018-10-19] MEDS ORDERED: LEVOFLOXACIN 500MG/D5W 100ML 100 ML IV SCH (12:30)
[2018-10-19] MEDS: FAMOTIDINE 20 MG/2 ML VIAL IV SCH (12:48)
[2018-10-19] MEDS: LEVOFLOXACIN 500MG/D5W 100ML 100 ML IV SCH (12:48)
[2018-10-19 13:24] VITALS: BP 113/69
[2018-10-19 13:38] VITALS: BP 113/69
[2018-10-19] MEDS ORDERED: METRONIDAZOLE 500MG/NS 100ML 100 ML IV SCH (14:00)
[2018-10-19] MEDS ORDERED: POTASSIUM CHLORIDE 10MEQ EA PO ONE (14:00)
[2018-10-19] MEDS: METRONIDAZOLE 500MG/NS 100ML 100 ML IV SCH ×2 (14:07→22:14)
--- NOTE | 2018-10-19 14:52 | History and Physical ---
CHIEF COMPLAINT: "I had blood come out of my bottom and stream down my leg today." HISTORY OF PRESENT ILLNESS: This 38-year-old white woman, who states that today she had sudden onset of rectal bleeding. The patient states that she felt liquid come out of her rectum and stream down her leg. When she looked down, it was maroon- colored. The patient is adamant that this bleeding came from rectum and not vagina. The patient states yesterday she went to a freestanding emergency room and underwent a CT of the abdomen and pelvis. Apparently, CT of the abdomen and pelvis revealed inflammation in her colon. The patient states that for the last 2-3 days she has had nausea and vomiting, but no diarrhea. In the emergency room, the patient's hemoglobin was 13.7 g/dL. Her white blood cell count was low at 2400 with 60% segmented neutrophils. The patient's potassium on admission was 2.4. The patient's BUN and creatinine were 12 and 0.83, respectively. Potassium is 3.4. The patient's lactic acid level in the emergency room was 5.3, which is normal. The patient was admitted for further evaluation and treatment. She adamantly denies using NSAIDS and aspirin. REVIEW OF SYSTEMS: GENERAL: The patient has lost 130 pounds in last 3 years since she underwent a laparoscopic gastric bypass. No fever or chills, but she has felt weak lately. HEENT: No headaches. No vision changes. CARDIOVASCULAR: No chest pain. GI: She had rectal bleeding today. She described the bleeding from her rectum as maroon in color. Denies any melena though. She had nausea and volume for last 2-3 days. Denies any hematemesis. GENITOURINARY: No UTIs. NEUROMUSCULAR: No limb weakness or numbness. ALLERGIES: 1. ACETAMINOPHEN WITH CODEINE. 2. TRAMADOL. FAMILY HISTORY: Her adult daughter has history of ulcerative colitis and in fact has undergone a total colectomy. PAST SURGICAL HISTORY: 1. Gastric banding. 2. Laparoscopic cholecystectomy. 3. section. 4. Total abdominal hysterectomy with bilateral salpingo-oophorectomy. 5. Laparoscopic gastric bypass in 2016. CURRENT MEDICATIONS: Multivitamin once daily. 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 She adamantly denies any tobacco or alcohol use. PHYSICAL EXAMINATION: GENERAL: She is awake, alert, and fluent, does not appear to be any distress. VITAL SIGNS: Height 5 feet 3 inches, weight 112 pounds, BMI 19. Blood pressure is 112/70, pulse 86, respiratory rate 18, temperature 98.1, and oxygen saturation is 100% on room air. INTEGUMENT: Skin is warm and dry. No pallor, jaundice, or diaphoresis. HEENT: Anicteric sclerae. Moist mucous membranes. NECK: Supple. CARDIOVASCULAR: Tachycardic rate, regular rhythm. LUNGS: No rales. No rhonchi or wheezes. ABDOMEN: Soft. She does have tenderness when palpating the left upper quadrant area. No rebound or guarding. No organomegaly appreciated. EXTREMITIES: No edema or deformities. NEUROLOGIC: Intact. DIAGNOSES: 1. Gross hematochezia. 2. Colitis. 3. Leukopenia. 4. History of gastric bypass in 2015 with subsequent 130 pounds weight loss. PLAN: 1. We will check for vitamin deficiencies. 2. Follow hemoglobin and hematocrit. 3. Hemoccult stool. 4. Intravenous antibiotics for patient's presumed colitis. 5. Consult Gastroenterology. I spent 40 minutes in the care of this patient. MD WILL Bowers/GENOVEVA /[id number] MTDD
[2018-10-19] MEDS: PROMETHAZINE 25MG/ NS 50ML (IV) IV PRN ×2 (15:06→22:01)
[2018-10-19 15:54] LABS: FERRITIN 58.01 ng/mL (4.63-204.00)
[2018-10-19 16:27] VITALS: BP 113/67
[2018-10-19 18:39] VITALS: BP 113/67
--- NOTE | 2018-10-19 18:58 | NUR ---
Report given to shift production supervisor. Patient awake lying in bed with eyes open. respiration even and unlabored without SOB. Call light in reach.
[2018-10-19 19:05] LABS: BASOPHILS % 0.3 % (0.0-1.0); EOSINOPHILS % 0.6 % (0.0-6.0); HEMATOCRIT 37.1 % (34.2-44.1); HEMOGLOBIN 12.8 g/dL (12.0-16.0); LYMPHOCYTES # (AUTO) 0.6 (1.0-3.2); LYMPHOCYTES % 18.6 % (18.0-39.1); MEAN CORPUSCULAR HEMOGLOBIN 31.6 pg (28-32); MEAN CORPUSCULAR HGB CONC 34.5 g/dL (31-35); MEAN CORPUSCULAR VOLUME 91.6 fL (81-99); MONOCYTES # (AUTO) 0.3 (0.2-0.8); MONOCYTES % 8.8 % (4.4-11.3); NEUTROPHILS # (AUTO) 2.4 (2.1-6.9); NEUTROPHILS % 71.7 % (38.7-80.0); PLATELET COUNT 154 x10e3/uL (140-360); RED BLOOD COUNT 4.05 x10e6/uL (3.6-5.1); RED CELL DISTRIBUTION WIDTH 11.9 % (11.7-14.4)
[2018-10-19 19:59] VITALS: BP 110/67
[2018-10-19 20:09] VITALS: BP 110/67
[2018-10-19] MEDS ORDERED: SODIUM CHLORIDE 0.9% 250ML 250 ML ONE (21:47)
[2018-10-19] MEDS ORDERED: HYDROMORPHONE 1MG/1ML INJ IV PRN (22:15)
[2018-10-20] MEDS ORDERED: BISACODYL 5 MG TAB EC PO ONE ×2 (01:00→01:30)
[2018-10-20 01:05] VITALS: BP 111/65
[2018-10-20 04:30] VITALS: BP 101/60
[2018-10-20] MEDS ORDERED: CITRATE OF MAGNESIA 300ML BOTTLE PO ONE ×2 (05:00)
--- NOTE | 2018-10-20 05:08 | NUR ---
Patient refused to have a bath at this time she want to have it at 10 am.
[2018-10-20] MEDS: PROMETHAZINE 25MG/ NS 50ML (IV) IV PRN (05:28)
[2018-10-20] MEDS: METRONIDAZOLE 500MG/NS 100ML 100 ML IV SCH ×2 (06:17→14:00)
[2018-10-20 06:45] LABS: BASOPHILS % 0.7 % (0.0-1.0); EOSINOPHILS # (AUTO) 0.1 (0.0-0.4); HEMATOCRIT 42.6 % (34.2-44.1); HEMOGLOBIN 14.2 g/dL (12.0-16.0); LYMPHOCYTES # (AUTO) 0.8 (1.0-3.2); LYMPHOCYTES % 25.8 % (18.0-39.1); MEAN CORPUSCULAR HEMOGLOBIN 30.9 pg (28-32); MEAN CORPUSCULAR HGB CONC 33.3 g/dL (31-35); MEAN CORPUSCULAR VOLUME 92.6 fL (81-99); MONOCYTES # (AUTO) 0.3 (0.2-0.8); MONOCYTES % 10.3 % (4.4-11.3); NEUTROPHILS # (AUTO) 1.8 (2.1-6.9); NEUTROPHILS % 59.2 % (38.7-80.0); PLATELET COUNT 164 x10e3/uL (140-360)
[2018-10-20 07:06] LABS: ALANINE AMINOTRANSFERASE 180 IU/L (0-55); ALBUMIN 3.8 g/dL (3.5-5.0); ALBUMIN/GLOBULIN RATIO 1.3 (0.8-2.0); ALKALINE PHOSPHATASE 193 IU/L (40-150); ANION GAP 13.6 mmol/L (8-16); BLOOD UREA NITROGEN 7 mg/dL (7-26); BUN/CREATININE RATIO 8 (6-25); CALCIUM 9.3 mg/dL (8.4-10.2); CARBON DIOXIDE 18 mmol/L (22-29); CHLORIDE 110 mmol/L (98-107); CREATININE, SERUM 0.83 mg/dL (0.57-1.11); EST GLOMERULAR FILTRATION RATE > 60 ML/MIN (60-); GLUCOSE 82 mg/dL (74-118); POTASSIUM 3.6 mmol/L (3.5-5.1); SODIUM 138 mmol/L (136-145)
[2018-10-20 08:00] VITALS: BP 108/63
[2018-10-20 08:45] VITALS: BP 108/63
[2018-10-20] MEDS: FAMOTIDINE 20 MG/2 ML VIAL IV SCH (08:45)
[2018-10-20 09:24] LABS: ALANINE AMINOTRANSFERASE 164 IU/L (0-55); ALBUMIN 3.6 g/dL (3.5-5.0); ALBUMIN/GLOBULIN RATIO 1.3 (0.8-2.0); ALKALINE PHOSPHATASE 178 IU/L (40-150); ANION GAP 12.9 mmol/L (8-16); BLOOD UREA NITROGEN 7 mg/dL (7-26); BUN/CREATININE RATIO 9 (6-25); CARBON DIOXIDE 20 mmol/L (22-29); CHLORIDE 109 mmol/L (98-107); EST GLOMERULAR FILTRATION RATE > 60 ML/MIN (60-); GLUCOSE 84 mg/dL (74-118); POTASSIUM 3.9 mmol/L (3.5-5.1); SODIUM 138 mmol/L (136-145)
[2018-10-20 12:01] VITALS: BP 100/62
[2018-10-20] MEDS: LEVOFLOXACIN 500MG/D5W 100ML 100 ML IV SCH (12:03)
[2018-10-20 13:44] LABS: OCCULT BLOOD STOOL POSITIVE (NEGATIVE); WBC,FECAL (FECAL LACTOFERRIN) POSITIVE (NEGATIVE)
--- NOTE | 2018-10-20 14:50 | NUR ---
PT NOT CURRENTLY IN ROOM TO PREFORM DPA
[2018-10-20] MEDS ORDERED: PANTOPRAZOLE 40 MG 10ML VIAL IV SCH (15:45)
[2018-10-20] MEDS ORDERED: SUCRALFATE 1 GM TAB PO SCH (16:30)
--- NOTE | 2018-10-20 16:49 | NUR ---
MD Victor Hugo JAMES AND KELIN CLEARED DC PATIENT IS OK TO GO HOME WILL ARRANGE DC
[2018-10-20 16:52] VITALS: BP 94/56
[2018-10-20] MEDS ORDERED: LEVAQUIN500 MG PO (17:05)
[2018-10-20] MEDS ORDERED: NORCO 10-325 T1 EACH PO (17:05)
[2018-10-20] MEDS ORDERED: FLAGYL250 MG PO (17:05)
[2018-10-20] MEDS ORDERED: PANTOPRAZOLE SO40 MG PO (17:06)
[2018-10-20] MEDS ORDERED: CARAFATE1 GM PO (17:06)
--- NOTE | 2018-10-20 17:30 | NUR ---
PT DC INSTRUCTIONS AND PRESCRIPTIONS GIVEN PT VERBALIZED UNDERSTANDING IV DC PRESSURE DRESSING APPLIED AND TAPED PT IS NOW OFF UNIT TO HOME
--- NOTE | 2018-10-20 17:58 | Operative Report ---
DATE OF PROCEDURE: 10/20/2018 SURGEON: Héctor Arambula MD PROCEDURE: Colonoscopy and an EGD with biopsies. INDICATIONS FOR COLONOSCOPY: Rectal bleeding. INDICATIONS FOR EGD: Upper abdominal pain. MEDICATIONS: The patient was done under MAC, please see anesthesiologist's note. PROCEDURE IN DETAIL: With the patient in left lateral decubitus position, a flexible fiberoptic Olympus colonoscope was inserted into the rectum with ease and advanced all the way to the cecum. The scope was then withdrawn slowly. Mucosa overlying the cecum, ascending colon, transverse, descending, sigmoid, and rectum appeared to be within normal limits. The scope was then retroflexed into the distal rectum and small internal hemorrhoids were noted, none of which was actively bleeding. The scope was then straightened out, it was subsequently withdrawn. The patient tolerated procedure well. IMPRESSION: Internal hemorrhoids, none actively bleeding. PLAN: Findings do not explain the patient's symptoms. We will proceed with EGD. PROCEDURE IN DETAIL: With the patient in the left lateral decubitus position, a flexible fiberoptic Olympus gastroscope was introduced into the esophagus under direct visualization without any difficulty. There was some patchy erythema noted in distal esophagus. The scope was then advanced with ease into the stomach and two large ulcers were noted in the gastric stump as the patient is status post Byron-en-Y. The largest ulcer is approximately 2 cm and both ulcers with stigmata of recent hemorrhage, but no active bleeding. The Byron-en-Y anastomosis was intact. There was evidence of stomach gastritis. Biopsies were obtained and sent to stain for H pylori. The scope was subsequently withdrawn. The patient tolerated the procedure well. IMPRESSION: 1. Distal esophagitis, mild. 2. Large gastric stump ulcers x2 with the largest approximately 2 cm in size with stigmata of recent hemorrhage, but no active bleeding. 3. Stump gastritis biopsied and biopsies sent to stain for Helicobacter pylori. 4. Status post Byron-en-Y, anastomosis intact. PLAN: Follow up histology. Initiate Protonix 40 mg one p.o. a.c. b.i.d. and Carafate 1 g p.o. a.c. t.i.d. and at bedtime. The patient will need to have a followup EGD in two months to document healing of the aforementioned ulcers. MD EZEQUIEL Ramos/LILLIANAL /[id number] cc: Jama Vasquez DO
[2018-10-20] MEDS ORDERED: PROPOFOL IV EMULSION 10 MG/ML 50 ML VIAL ONE (18:39)
[2018-10-20] MEDS ORDERED: MIDAZOLAM HCL 2 MG/2 ML VIAL ONE (18:48)
[2018-10-20] MEDS ORDERED: FENTANYL CITRATE/PF 100MCG/2 ML INJ ONE (18:48)
--- NOTE | 2018-10-24 15:04 | NUR ---
Dictated DC summary: [id number]
--- NOTE | 2018-10-24 15:04 | NUR ---
Dictated DC summary: [id number]
--- NOTE | 2018-10-24 16:15 | Discharge Summary ---
ADMIT DIAGNOSES: 1. Gross hematochezia. 2. Colitis. 3. Leukopenia. 4. History of gastric bypass in 2016. 5. Endoscopically proven gastric ulcers. DISCHARGE DIAGNOSES: 1. Gross hematochezia, resolved. 2. Endoscopically proven gastric ulcers. 3. Leukopenia. 4. Elevated hepatic transaminases. HOSPITAL COURSE: This is a 38-year-old white woman, who was initially admitted to [facility] with diagnosis of hematochezia secondary to colitis. During this hospitalization, she was started on intravenous metronidazole and levofloxacin. The patient's hemoglobin remained stable during this hospitalization. In fact, hemoglobin 13.7 g/dL. On discharge, it was 14.2 g/dL. The patient's Hemoccult stool was however positive. Her stool lactoferrin was also positive. The patient was found to have elevated hepatic transaminases during this hospitalization with an AST and ALT of 163 and 180 respectively. The patient has remained leukopenic during this hospital stay. On admission, the patient white blood cell count was 2400 with 50% segmented neutrophils. On day of discharge, it was 3059% segmented neutrophils. The patient was seen by student activities director during this hospitalization namely Dr. Héctor Arambula, who performed upper endoscopy. The patient underwent upper and lower endoscopy. The colonoscopy revealed internal hemorrhoids that were not actively bleeding. The patient's colon appeared normal according to the student activities director. The patient underwent EGD that revealed two large gastric ulcers. CONDITION: The patient's condition on discharge stable. DISCHARGE MEDICATIONS: 1. Protonix 40 mg daily. 2. Levofloxacin 500 mg daily for a total of 14 days. 3. Metronidazole 500 mg t.i.d. for a total of 14 days. 4. Carafate 1 g before meals and at bed time. FOLLOWUP INSTRUCTIONS: The patient was instructed to follow up with her primary care physician namely Dr. Angel Arambula within two weeks. In an outpatient setting, the patient will most likely have hepatitis panel checked since she has leukopenia and elevated hepatic transaminases. MD WILL Bowers/[place] /[id number] MTDEve
== END 2018-10-20 17:31 | disposition home or self-care (01) ==
LOC: ER 08:12 → ERHOLD 10:45 → INTOOBSV 10:45 → MED/SURG 13:19
DX: K25.4 Chronic or unspecified gastric ulcer with hemorrhage (principal); R10.32 Left lower quadrant pain; K92.1 Melena; Z88.6 Allergy status to analgesic agent; Z88.5 Allergy status to narcotic agent; Z98.84 Bariatric surgery status; K52.9 Noninfective gastroenteritis and colitis, unspecified; D72.819 Decreased white blood cell count, unspecified; K64.8 Other hemorrhoids; K20.9 Esophagitis, unspecified; K29.70 Gastritis, unspecified, without bleeding; Z87.442 Personal history of urinary calculi; R74.0 Nonspecific elevation of levels of transaminase and lactic acid dehydrogenase [LDH]
CPT/HCPCS: 36415 ×2; 43239; 45378; 80053 ×2; 81001; 82270; 82607; 82728; 82747; 83540; 83605 ×2; 83630; 83690; 83993; 84466; 84702; 85025 ×2; 85610; 85730; 87086; 88305; 88312; 96365; 99284; C9113; G0378 ×2; J1170; J1956 ×2; J2250; J2270; J2405 ×2; J2550 ×2; J2704; J3010; J7050

== ENCOUNTER 2018-10-30 18:50 | Emergency (ER) | payer OTHER ==
[~2018-10-30] VITALS: Ht 160 cm; Wt 49.0 kg
[~2018-10-30 18:50] MED LIST changes: +CARAFATE1 GM PO; +FLAGYL250 MG PO; +LEVAQUIN500 MG PO; +NORCO 10-325 T1 EACH PO
--- OUTSIDE RECORDS SUMMARY | 2018-10-30 18:53 | XMS REPORT | Clinical Summary ---
Author Author [facility] Organization [facility] Address Unknown Phone Unavailable Care Team Providers Care Jacker Name Role Phone Asked, No Pcp PCP [...] Dx) 03/10/2018 Office Visit General Surgery after 10/29/2017 Social History Date Tobacco Use Types Packs/Day Years Used Never Assessed Sex Assigned at Date Recorded Not on file Industry Job Start Date Occupation Not on file Not on file Not on file Travel End Travel History Travel Start No recent travel history available. Last Filed Vital Signs Reading Time Taken Comments Vital Sign 115/62 03/10/2018 3:50 PM [employer] Blood Pressure 67 03/10/2018 3:50 PM [employer] Pulse 37.1 C (98.7 F) 03/10/2018 3:50 PM [employer] Temperature - - Respiratory Rate - - Oxygen Saturation - - Inhaled Oxygen Concentration 49.9 kg (110 lb) 03/10/2018 3:50 PM [employer] Weight 160 cm (5' 3") 03/10/2018 3:50 PM [employer] Height 19.49 03/10/2018 3:50 PM [employer] Body Mass Index Plan of Treatment Health Maintenance Due Date Last Done Comments CERVICAL CANCER SCREENING 2002 INFLUENZA VACCINE 09/08/2018 Results Not on fileafter 10/29/2017 Insurance Type Payer Benefit Subscriber ID Effective Phone Address Plan / Dates Group PPO AETNA AETNA PPO xxxxxxxxxx [id number] OPEN resent CHOICE Advance Directives For more information, please contact: [phone] Patient [facility] Explanation Type Date Recorded Advance Directives, 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
--- NOTE | 2018-10-30 20:06 | Diagnostic Imaging Report ---
EXAMINATION: CT of the abdomen and pelvis without contrast. TECHNIQUE: Spiral CT images of the abdomen and pelvis were performed from the lung bases to the lesser trochanters. No intravenous contrast was given per renal stone protocol. Coronal and sagittal reformatted images were obtained. COMPARISON: Abdominal ultrasound 06/15/2018 CLINICAL HISTORY:Abdominal pain and nausea DISCUSSION: ABSENCE OF INTRAVENOUS CONTRAST DECREASES SENSITIVITY FOR DETECTION OF FOCAL LESIONS AND VASCULAR PATHOLOGY. ABDOMEN/PELVIS: LOWER THORAX: Unremarkable. HEPATOBILIARY: No focal hepatic lesions. No intra or extrahepatic biliary ductal dilation. GALLBLADDER: Cholecystectomy clips SPLEEN: No splenomegaly. PANCREAS: No focal masses or ductal dilatation. ADRENALS: No adrenal nodules. KIDNEYS/URETERS: 4 mm nonobstructing calculus in the right superior pole (series 2, image 30). No other renal calculi. 4-5 mm calcific density anterior to the right psoas muscle (series 2, image 41). No significant perinephric stranding. No hydronephrosis. No contour abnormalities. PELVIC ORGANS/BLADDER: Bladder is decompressed but grossly unremarkable. Uterus is absent. No adnexal masses. PERITONEUM/RETROPERITONEUM: No free air or fluid. LYMPH NODES: No intra-abdominal,retroperitoneal, pelvic or inguinal lymphadenopathy. VESSELS: Unremarkable for noncontrast exam. GI TRACT: No bowel dilation or evidence of obstruction. Postoperative changes in the stomach and proximal small bowel, consistent with prior gastric bypass surgery. Moderate amount of retained stool in the colon. Appendix is identified and normal in caliber. BONES AND SOFT TISSUES: No aggressive lytic lesions. Soft tissues are grossly unremarkable. IMPRESSION: 1. 4-5 mm calcific density anterior to the right psoas muscle is indeterminate. This may represent a ureteral calculus, however, no right hydronephrosis or evidence of obstruction is noted. Alternatively, this may represent a gonadal vein phlebolith.No other renal, ureteral or bladder calculi. Correlate for hematuria 2. 4 mm nonobstructing calculus in the right superior pole. 3. No bowel dilation or evidence of obstruction. Moderate retained stool in the colon. Signed by: Dr. Agustín Espinoza M.D. on 10/30/2018 8:03 PM
== END 2018-10-30 20:34 | disposition home or self-care (01) ==
LOC: FSED 18:50
DX: R10.33 Periumbilical pain (principal); K21.9 Gastro-esophageal reflux disease without esophagitis; Z98.84 Bariatric surgery status
CPT/HCPCS: 74176; 80053; 81003; 85025; 99283

== ENCOUNTER → 2018-11-08 | Day surgery (SDC) | payer OTHER ==
--- NOTE | 2018-11-04 10:30 | Diagnostic Imaging Report ---
Abdomen, 1 view. History: Preop, kidney stones. Comparison: CT 10/30/2018. Findings: Air is scattered throughout nondilated small and large bowel. A 4 mm calcification is projected over the upper pole of the right kidney. Cholecystectomy clips are present. A 4 mm calcification is also seen below the right L3 transverse process. There are no masses. The osseous structures are intact. IMPRESSION: Non-specific bowel gas pattern. Right-sided calcifications are similar in appearance to prior CT. Signed by: Ranulfo Casper on 11/04/2018 10:27 AM
[~2018-11-08] MED LIST changes: +CEFTRIAXONE SOD 1 GM/NS 50 ML 50 ML IV ONE; +DEXAMETHASONE SOD PHOS INJ 4 MG/ML VIAL ONE; +FENTANYL CITRATE/PF 100MCG/2 ML INJ ONE; +IOPAMIDOL 300MG/ML 50ML INFUS..BTL IV ONE; +LIDOCAINE HCL 2% LOCAL INJ 5 ML SDV VIAL INJ ONE; +MIDAZOLAM HCL 2 MG/2 ML VIAL ONE; +ONDANSETRON HCL INJ 2MG/ML 2ML 2 MG/ML VIAL ONE; +PROPOFOL IV EMULSION 10 MG/ML 20 ML VIAL ONE; +SEVOFLURANE INHAL SOLN 250 ML PEN BTL ONE
[2018-11-08 14:35] VITALS: BP 104/74
--- NOTE | 2018-11-14 14:47 | Operative Report ---
DATE OF PROCEDURE: 11/08/2018 SURGEON: Domenic Mckenna MD PREOPERATIVE DIAGNOSES: 1. Right kidney stone. 2. Microscopic hematuria. POSTOPERATIVE DIAGNOSES: 1. Right kidney stone. 2. Microscopic hematuria. PROCEDURES: 1. Cystourethroscopy with right ureteral catheterization and right retrograde pyelogram (separate procedure for microscopic hematuria). 2. Staged right-sided shock wave lithotripsy. 3. Supervision of fluoroscopy. ANESTHESIA: General. ESTIMATED BLOOD LOSS: Minimal. COMPLICATIONS: None. INDICATIONS: Ms. Rios is a very pleasant 38-year-old female with a symptomatic left-sided kidney stone. She and I had a long discussion of alternatives, risks, and benefits of doing nothing, shock waves lithotripsy, ureteroscopy, percutaneous surgery or open surgery. She voiced understanding of the options, alternatives, risks and benefits and elected to proceed. PROCEDURE IN DETAIL: After informed consent was obtained, the patient was taken to the operative suite, placed supine on the operating table, and underwent general anesthesia by the service. She was placed in the dorsal lithotomy position, sterilely prepped and draped in a sterile fashion for cystoscopy. A 21-Sami cystoscope was inserted per urethra, normal size noted. Panendoscopy of the bladder revealed no tumors, no stones. Both ureteral orifices were in normal anatomic location and position. The right ureteral orifice was catheterized. Retrograde pyelogram was performed revealing the stone in the right kidney. Stone was localized in the X, Y and Z planes. Treatment was performed per the treatment report. The patient tolerated procedure well, transported to the recovery room in excellent condition. Supervision of fluoroscopy, interpretation of retrograde pyelography: I was present for the entire procedure and supervised fluoroscopy. There was no radiologist present. Attention was turned towards the right ureteral orifices, which were catheterized and retrograde pyelogram performed revealing delicate ureter, delicate pelvocaliceal systems. No evidence of filling defects on the left. On the right side, there was a filling defect corresponding to the stone, postoperatively lithotripsy dissolved most of this. The bladder was drained. The patient was awakened from anesthesia and transported to the recovery room in excellent condition. Supervision of fluoroscopy and interpretation of retrograde pyelography: I was present for the entire procedure and supervised fluoroscopy. There was no radiologist present. Attention was turned towards the right ureteral orifices, which were catheterized and retrograde pyelogram performed revealing delicate ureter stones seen in the kidney. MD RADHA Nichole/[place] /[id number]
== END | disposition home or self-care (01) ==
LOC: OR 05:06
PROVIDERS: ATTEND Urology
DX: N20.0 Calculus of kidney (principal); R32 Unspecified urinary incontinence; R39.14 Feeling of incomplete bladder emptying; R12 Heartburn; K28.9 Gastrojejunal ulcer, unspecified as acute or chronic, without hemorrhage or perforation; Z88.6 Allergy status to analgesic agent; Z84.1 Family history of disorders of kidney and ureter
CPT/HCPCS: 50590; 74018; C1758; J0696; J1100; J2001; J2250; J2405; J2704; J3010; Q9967

== ENCOUNTER → 2018-11-10 | Day surgery (SDC) | payer OTHER ==
[~2018-11-10] MED LIST changes: -CEFTRIAXONE SOD 1 GM/NS 50 ML 50 ML IV ONE; -DEXAMETHASONE SOD PHOS INJ 4 MG/ML VIAL ONE; -IOPAMIDOL 300MG/ML 50ML INFUS..BTL IV ONE; -LIDOCAINE HCL 2% LOCAL INJ 5 ML SDV VIAL INJ ONE; +METOCLOPRAMIDE HCL 10 MG/2ML VIAL ONE; -ONDANSETRON HCL INJ 2MG/ML 2ML 2 MG/ML VIAL ONE; -SEVOFLURANE INHAL SOLN 250 ML PEN BTL ONE
[2018-11-10 12:15] VITALS: BP 107/78
--- NOTE | 2018-11-10 13:31 | Operative Report ---
DATE OF PROCEDURE: 11/10/2018 SURGEON: Héctor Arambula MD PROCEDURE: EGD. INDICATIONS FOR EGD: The patient is status post Byron-en-Y. History of large ulcers and gastric stump. MEDICATIONS: The patient was done under MAC, please see anesthesiologist's note. PROCEDURE IN DETAIL: With the patient in left lateral decubitus position, a flexible fiberoptic Olympus gastroscope was introduced into the esophagus under direct visualization without any difficulty. The esophagus appeared to be within normal limits. The scope was then advanced with ease into the stomach and the patient is status post Byron-en-Y. Anastomosis was intact. The previously described ulcers were almost totally healed with some residual minute ulcers in the gastric stump. Efferent loop was intubated with ease and it was patent. The scope was subsequently withdrawn and the patient tolerated the procedure well. IMPRESSION: 1. Normal esophagus. 2. Status post Byron-en-Y. Anastomosis intact. Minute residual ulcers in gastric stump. PLAN: Continue Protonix 40 mg 1 p.o. before meals b.i.d. and Carafate 1 g p.o. before meals t.i.d. and at bedtime. Héctor Arambula MD [facility]/[place] /[id number] cc: Jama Vasquez DO
== END | disposition home or self-care (01) ==
LOC: ENDO 09:08
PROVIDERS: ATTEND Internal Medicine Gastroenterology
DX: R10.12 Left upper quadrant pain (principal); R11.0 Nausea; K20.9 Esophagitis, unspecified; K29.60 Other gastritis without bleeding; K62.1 Rectal polyp; K28.9 Gastrojejunal ulcer, unspecified as acute or chronic, without hemorrhage or perforation; Z88.6 Allergy status to analgesic agent; Z88.5 Allergy status to narcotic agent; K58.9 Irritable bowel syndrome, unspecified; K21.9 Gastro-esophageal reflux disease without esophagitis; Z87.442 Personal history of urinary calculi; K63.89 Other specified diseases of intestine
CPT/HCPCS: 43235; J2250; J2704; J2765; J3010

== ENCOUNTER 2018-11-29 18:58 | Emergency (ER) | payer OTHER ==
[~2018-11-29] VITALS: Ht 160 cm; Wt 49.0 kg
[~2018-11-29 18:58] MED LIST changes: -FENTANYL CITRATE/PF 100MCG/2 ML INJ ONE; -METOCLOPRAMIDE HCL 10 MG/2ML VIAL ONE; -MIDAZOLAM HCL 2 MG/2 ML VIAL ONE; -PROPOFOL IV EMULSION 10 MG/ML 20 ML VIAL ONE
[2018-11-29] MEDS ORDERED: SODIUM CHLORIDE 0.9% 50ML 50 ML ONE (19:47)
[2018-11-29] MEDS ORDERED: IOPAMIDOL 370 MG/ML 200 ML INFUS..BTL INJ ONE (19:47)
[2018-11-29] MEDS ORDERED: FAMOTIDINE 20 MG/2 ML VIAL IV ONE (19:48)
[2018-11-29] MEDS: FAMOTIDINE 20 MG/2 ML VIAL IV NR ×2 (19:51→20:56)
--- NOTE | 2018-11-29 20:28 | Diagnostic Imaging Report ---
EXAM: CT Abdomen and Pelvis WITH contrast INDICATION: Abdominal pain. History of stomach ulcer. History of gastric bypass. Hysterectomy. ^[id number] ^2006 COMPARISON: 10/30/2018 TECHNIQUE: Abdomen and pelvis were scanned utilizing a multidetector helical scanner from the lung base to the pubic symphysis after administration of IV contrast. Coronal and sagittal reformations were obtained. Routine protocol was performed. Scan was performed when during portal venous phase. IV CONTRAST: 100 mL of Isovue 370 ORAL CONTRAST: Water COMPLICATIONS: None RADIATION DOSE: Total DLP: 237 mGy*cm Estimated effective dose: (DLP x 0.015 x size factor) mSv CTDIvol has been reviewed. It is below the limits set by the Radiation Protocol Committee (RPC). Dose modulation, iterative reconstruction, and/or weight based adjustment of the mA/kV was utilized to reduce the radiation dose to as low as reasonably achievable. FINDINGS: LOWER THORAX: Unremarkable. HEPATOBILIARY: No focal hepatic lesions. No intra or extrahepatic biliary ductal dilation. GALLBLADDER: Cholecystectomy clips No wall thickening. SPLEEN: No splenomegaly. PANCREAS: No focal masses or ductal dilatation. ADRENALS: No adrenal nodules. KIDNEYS/URETERS: 4 mm nonobstructing calculus in the proximal right ureter. No other renal calculi. Previously seen 4-5 mm calcific density anterior to the right psoas muscle (no longer seen No significant perinephric stranding. No hydronephrosis. No contour abnormalities. PELVIC ORGANS/BLADDER: Bladder is decompressed but grossly unremarkable. Uterus is absent. No adnexal masses. PERITONEUM/RETROPERITONEUM: No free air or fluid. LYMPH NODES: No intra-abdominal,retroperitoneal, pelvic or inguinal lymphadenopathy. VESSELS: Unremarkable for noncontrast exam. GI TRACT: No bowel dilation or evidence of obstruction. Postoperative changes in the stomach and proximal small bowel, consistent with prior gastric bypass surgery. Moderate amount of retained stool in the colon. Appendix is identified and normal in caliber. BONES AND SOFT TISSUES: No aggressive lytic lesions. Soft tissues are grossly unremarkable. IMPRESSION: 1. Previously seen 4-5 mm calcific density anterior to the right psoas muscle is no longer seen. 4 mm nonobstructing calculus in the proximal right ureter 2. No bowel dilation or evidence of obstruction. Moderate retained stool in the colon. Postoperative change consistent with patient's history of gastric bypass. Signed by: Dr. Jesus Camacho M.D. on 11/29/2018 8:25 PM
[2018-11-29] MEDS ORDERED: MORPHINE SULFATE INJ 4 MG/ML INJ 1ML IV PRN (20:30)
[2018-11-29] MEDS ORDERED: MORPHINE SULFATE INJ 4 MG/ML INJ 1ML ONE (20:58)
[2018-11-29 21:46] VITALS: BP 130/77
== END 2018-11-29 21:16 | disposition home or self-care (01) ==
LOC: FSED 18:58
DX: K62.5 Hemorrhage of anus and rectum (principal); R10.9 Unspecified abdominal pain; N20.1 Calculus of ureter; Z98.84 Bariatric surgery status
CPT/HCPCS: 74177; 80053; 81003; 85025; 99284; J2270; Q9967

== ENCOUNTER → 2019-06-29 | Day surgery (SDC) | payer OTHER ==
[~2019-06-29] MED LIST changes: +HYOSCYAMINE 0.125 MG TAB ONE; +LIDOCAINE HCL 2% LOCAL INJ 5 ML SDV VIAL INJ ONE; +MIDAZOLAM HCL 2 MG/2 ML VIAL ONE; +OMEPRAZOLE40 MG PO; +PROPOFOL IV EMULSION 10 MG/ML 20 ML VIAL ONE; +SCOPOLAMINE 1.5 MG PATCH ONE
[2019-06-29 10:15] VITALS: BP 123/75
--- OUTSIDE RECORDS SUMMARY | 2019-06-29 10:36 | XMS REPORT ---
Author Author [facility] t Organization [facility] Address 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 Sharifa Attphys Mac VENTURA, Saleem Attphys Ton VENTURA, Shannon Attphys Fernandez RN, Kika Attphys Unavailable Tamia VNETURA, Radha Gonzalez Attphys [phone] Christiana SNOW MAKER, Radha Attphys Elver SHEEHAN, Nadja Attphys Unavailable ESTEBAN, RANULFO Attphys Unavailable TRACEY, FELICIANO Attphys Unavailable ADELFO, JENNIFER Attphys Unavailable Payers Payer Name Policy Type Policy Number Effective Date Expiration Date S miguel AETNAAETNA HMO,POS,EPO, [id number] 2015 00:00:00 Ronnie Zhao [employer] Pos [id number] 2015 00:00:00 [facility] [id number] 2015 00:00:00 [facility] Pos [id number] 2018 00:00:00 [facility] Pos [id number] 2015 00:00:00 [facility] Pos [id number] 2015 00:00:00 [facility] Pos [id number] 2015 00:00:00 [facility] Pos [id number] 2015 00:00:00 [facility] Problems Condition Name Condition Details Condition Category Status Onset Date Resolution Date Last Treatment Date Treating Clinician Comments Source Fever Fever Disease Active 2019-01-09 00:00:00 Ronnie Zhao Post-operative state Post-operative state Disease Active 00:00:00 Ronnie Zhao Hematochezia Hematochezia Disease Active 2019-01-04 00:00:00 Ronnie Zhao Marginal ulcer Marginal ulcer Disease Active 2018-12-29 00:00:00 Ronnie Zhao Rectal hemorrhage Rectal bleed Problem Active [facility] Allergies, Adverse Reactions, Alerts Allergy Name Allergy Type Status Severity Reaction(s) Onset Date Inacti ve Date Treating Clinician Comments Source morphine DA Active OR 2019-03-31 00:00:00 [facility] tramadol DA Active U 2019-03-23 00:00:00 [facility] codeine DA Active SV 2019-03-23 00:00:00 [facility] Codeine Allergy to Substance Active Moderate CAUSES CHEST PA IN 2018-12-15 00:00:00 [facility] Tramadol Allergy to Substance Active Moderate "CHEST PAIN" 2018-02 00:00:00 [facility] Tramadol Propensity to adverse reactions to drug Active Other (See Comments) 2018-12-12 00:00:00 Chest pain [place] [facility] Acetaminophen-Codeine Propensity to adverse reactions to drug Activ e Other (See Comments) 2018-12-12 00:00:00 Chest pain [place] [facility] codeine DA Active SV 2016-03-02 00:00:00 [facility] acetaminophen DA Active SV 2016-03-02 00:00:00 [facility] Family History Family Member Diagnosis Comments Start Date Stop Date Source Natural father Diabetes [facility] [facility] Social History Social Habit Start Date Stop Date Quantity Comments Source History SDOH Alcohol Std Drinks [place] [facility] History SDOH Alcohol Binge [place] [facility] Sex Assigned At Krista green[facility] Alcohol intake 2019-02-06 00:00:00 2019-02-06 00:00:00 Lifetime non-drinker (finding) [place] [facility] History SDOH Alcohol Frequency 2018-12-12 00:00:00 2018-12-12 00:00:0 0 1 [place] [facility] Smoking Status Start Date Stop Date Source Never smoker Ronnie Cabralis t Medications Ordered Medication Name Filled Medication Name Start Date Stop Da te Current Medication? Ordering Clinician Indication Dosage Frequency Signature (SIG) Comments Components Source metoclopramide (REGLAN) 10 MG tablet 2018-12-31 14:43: 45 2018-12-31 00:00:00 No 10mg Take 10 mg by mouth as needed. Ronnie Zhao enoxaparin (LOVENOX) 30 mg/0.3 mL syringe 2018-02 00:00:00 2019-01-04 00:00:00 No 30mg QD Inject 0.3 mL (30 mg total) under the skin daily for 7 days. Ronnie Zhao ondansetron (ZOFRAN) 4 MG tablet 2018-12-29 00:00:00 Yes 4mg Q8H Take 1 tablet (4 mg total) by mouth every 8 (eight) hours as needed for nausea or vomiting. Ronnie Zhao omeprazole (PriLOSEC) 40 MG capsule 2018-12-29 00:00:0 0 2019-06-27 23:59:00 No 40mg QD Take 1 capsule (40 mg total) by mouth da jolie for 180 days. Ronnie Zhao promethazine (PHENERGAN) 25 MG tablet 2018-12-29 00:00 :00 2019-01-28 23:59:00 No 25mg Q6H Take 1 tablet ( 25 mg total) by mouth every 6 (six) hours as needed for nausea or vomiting for up to 30 days. Ronnie Zhao HYDROcodone-acetaminophen (NORCO) 5-325 mg per tablet 2018-12-29 00:00:00 2019-01-05 23:59:00 No acute pain 1{tbl} Q6H Take 1 tablet by mouth every 6 (six) hours as needed for moderate pain for up to 7 days .Acute Pain. Max Daily Amount: 4 tablets Ronnie Zhao enoxaparin (LOVENOX) 40 mg/0.4 mL syringe 2018-02 00:00:00 2018-12-31 00:00:00 No 40mg QD Inject 0.4 mL (40 mg total) under the skin daily for 14 days. Ronnie Zhao HYDROcodone-acetaminophen (NORCO) 5-325 mg per tablet 2018-12-28 00:00:00 2019-01-04 00:00:00 No acute pain 1{tbl} Q6H Take 1 tablet by mouth every 6 (six) hours as needed for moderate pain for up to 7 days .Acute Pain. Max Daily Amount: 4 tablets Ronnie Zhao omeprazole (PriLOSEC) 40 MG capsule 2018-12-28 00:00:0 0 2018-12-29 00:00:00 No 40mg QD Take 1 capsule (40 mg total) by mouth da jolie for 180 days. Ronnie Zhao enoxaparin (LOVENOX) 40 mg/0.4 mL syringe 2018-02 00:00:00 2018-12-29 00:00:00 No 40mg QD Inject 0.4 mL (40 mg total) under the skin daily for 14 days. Ronnie Zhao ondansetron (ZOFRAN) 4 MG tablet 2018-12-28 00:00:00 2018-12 00:00:00 No 4mg Q8H Take 1 tablet (4 mg total) by mouth every 8 (eight) hours as needed for nausea or vomiting. Ronnie Zhao promethazine (PHENERGAN) 25 MG tablet 2018-12-28 00:00 :00 2018-12-29 00:00:00 No 25mg Q6H Take 1 tablet ( 25 mg total) by mouth every 6 (six) hours as needed for nausea or vomiting for up to 30 days. Ronnie Zhao HYDROcodone-acetaminophen (NORCO) 5-325 mg per tablet 2018-12-28 00:00:00 2018-12-28 00:00:00 No acute pain 1{tbl} Q6H Take 1 tablet by mouth every 6 (six) hours as needed for moderate pain for up to 7 days .Acute Pain. Max Daily Amount: 4 tablets Ronnie Zhao nitrofurantoin, macrocrystal-monohydrate, (MACROBID) 100 MG capsule 2018-12-15 00:00:00 2018-12-25 23:59:00 No Q.5D 2 (two) times a day. Ronnie Zhao sucralfate (CARAFATE) 1 gram tablet 2018-12-02 00:00:00 Yes 1g Q.25D Take 1 g by mouth 4 (four) times a day. Ronnie Zhao pantoprazole (PROTONIX) 40 MG EC tablet 00:00:00 2019-01-04 00:00:00 No 40mg Q.5D Take 40 mg by mouth 2 (two) christian es a day. Ronnie Zhao ondansetron (ZOFRAN) 8 MG tablet 2018-10-18 00:00:00 2018-12 00:00:00 No 8mg Q8H Take 8 mg by mouth every 8 (eight) hours. Ronnie Zhao Pantoprazole Sodium (Protonix) 40 Mg Tablet. Pantopr azole Sodium (Protonix) 40 Mg Tablet.dr Yes 40 Daily [facility] Sucralfate (Carafate) 1 Gm Tablet Sucralfate (Carafate) 1 Gm Tablet Yes 1 Four Times Daily [facility] Hydrocodone Bit/Acetaminophen (Flint 10-325 Tablet) 1 Each Tablet, 1 Tab Oral Hydrocodone Bit/Acetaminophen (Flint 10-325 Tablet) 1 Each Tablet, 1 Tab Oral 2018-11-04 00:00:00 No 1 Twice A Day [facility] Levofloxacin (Levaquin) 500 Mg Tablet, 500 Mg Oral Lev ofloxacin (Levaquin) 500 Mg Tablet, 500 Mg Oral 2018-11-04 00:00:00 No 500 D aily [facility] Metronidazole (Flagyl) 250 Mg Tablet, 500 Mg Oral Metr onidazole (Flagyl) 250 Mg Tablet, 500 Mg Oral 2018-11-04 00:00:00 No 500 Thre e Times A Day [facility] Hyoscyamine Sulfate (Levsin) 0.125 Mg Tablet, 1 Tab Or al Hyoscyamine Sulfate (Levsin) 0.125 Mg Tablet, 1 Tab Oral 2018-10-19 00:00:00 No 1 Daily [facility] Linzess , Oral Linzess , Oral 2018-10-19 00:00:00 No As Needed [facility] Metoclopramide Hcl (Reglan) 10 Mg Tablet, 10 Mg Oral M etoclopramide Hcl (Reglan) 10 Mg Tablet, 10 Mg Oral 2018-10-19 00:00:00 No 10 As Needed [facility] Ondansetron Hcl (Zofran*) 4 Mg Tablet, 4 Mg Oral Ondan setron Hcl (Zofran*) 4 Mg Tablet, 4 Mg Oral 2018-10-19 00:00:00 No 4 As Nee ded [facility] Pantoprazole Sodium (Protonix) 40 Mg Tablet., 40 Mg Oral Pantoprazole Sodium (Protonix) 40 Mg Tablet., 40 Mg Oral 2018-10-19 00:00:00 No 40 Daily [facility] Multivitamin (Multivitamins) 1 Each Capsule, Oral Mu ltivitamin (Multivitamins) 1 Each Capsule, Oral 2018-02-17 00:00:00 No Eve ehck [facility] Omeprazole 20 Mg Capsule., Omeprazole 20 Mg Capsule., 2018-02-17 00:00:00 No Daily [facility] Sucralfate (Carafate) 1 Gm/10 Ml Oral.susp, 1 Gm Oral Sucralfate (Carafate) 1 Gm/10 Ml Oral.susp, 1 Gm Oral 2018-02-17 00:00:00 No 1 Before Meals [facility] Vitamin A , Oral Vitamin A , Oral 2018-02-17 00:00:00 No Daily [facility] Vitamin B12 , Oral Vitamin B12 , Oral 2018-02-17 00:00:00 No Daily [facility] Vitamin C , Oral Vitamin C , Oral 2018-02-17 00:00:00 No Daily [facility] Levothyroxine , Levothyroxine , 2016-03-13 00:00:00 [facility] Vital Signs Vital Name Observation Time Observation Value Comments Source Systolic blood pressure 2019-02-06 12:51:00 116 mm[Hg] Ronnie Zhao Diastolic blood pressure 2019-02-06 12:51:00 76 mm[Hg] Ronnie Zhao Heart rate 2019-02-06 12:51:00 61 /min Ronnie Zhao Body temperature 2019-02-06 12:51:00 36.89 Niru Jordy Zhao Body height 2019-02-06 12:51:00 160 cm Ronnie Zhao Body weight 2019-02-06 12:51:00 50.758 kg Ronnie Zhao BMI 2019-02-06 12:51:00 19.82 kg/m2 Ronnie Zhao Oxygen saturation in Arterial blood by Pulse oximetry 2018-02 12:51:00 99 /min Ronnie Zhao Respiratory rate 2019-01-10 13:04:49 20 /min Jordy Zhao Procedures Procedure Date / Time Performed Performing Clinician Sour e BASIC METABOLIC PANEL 2019-01-10 04:00:00 Veronica Garcia on [facility] MAGNESIUM LEVEL 2019-01-10 04:00:00 Veronica Garcia hodist PHOSPHORUS LEVEL 2019-01-10 04:00:00 Veronica Garcia Me thodist ESTIMATED GFR 2019-01-10 04:00:00 Watts, Saleem [place] [facility] CBC WITH PLATELET AND DIFFERENTIAL 2019-01-10 03:48:00 Veronica Garcia [facility] MANUAL DIFFERENTIAL 2019-01-10 03:48:00 Saleem Watts OCCULT BLOOD, STOOL 2019-01-09 09:20:00 Veronica Garcia [facility] CBC WITH PLATELET AND DIFFERENTIAL 2019-01-09 03:22:00 Veronica Garcia [facility] BASIC METABOLIC PANEL 2019-01-09 03:22:00 Veronica Garciatania on [facility] MAGNESIUM LEVEL 2019-01-09 03:22:00 Veronica Garcia Met hodist PHOSPHORUS LEVEL 2019-01-09 03:22:00 Veronica Garcia Me thodist ESTIMATED GFR 2019-01-09 03:22:00 Shannon Camilo Meth odist MANUAL DIFFERENTIAL 2019-01-09 03:22:00 Shannon Camilo [facility] HEPATIC FUNCTION PANEL 2019-01-08 22:34:00 Andrew Sher [facility] LACTIC ACID LEVEL 2019-01-08 22:34:00 MacHarveykamran [place] [facility] CHEST W CONTRAST ABDOMEN W CONTRAST PELVIS W CONTRAST 201 10-20-00 20:56:58 Veronica Garcia Ronnie Zhao URINE CULTURE 2019-01-08 19:33:00 Shannon Camilo Meth oddana URINALYSIS SCREEN AND MICROSCOPY, WITH REFLEX TO CULTURE 201 10-20-00 19:32:00 Veronica Garcia [facility] XR CHEST 1 VW PORTABLE 2019-01-08 19:31:55 Veronica Garcia Jordy ton [facility] BLOOD CULTURE, AEROBIC & ANAEROBIC 2019-01-08 17:00:00 Elvin Camilo BLOOD CULTURE, AEROBIC & ANAEROBIC 2019-01-08 16:52:00 Elvin Camilo HC COMPLETE BLD COUNT W/AUTO DIFF 2019-01-08 16:52:00 Lauro Camilo PROTHROMBIN TIME WITH INR 2019-01-08 16:52:00 Shannon Camilo PARTIAL THROMBOPLASTIN TIME (PTT) 2019-01-08 16:52:00 Lauro Camilo TYPE AND SCREEN 2019-01-08 16:52:00 Shannon Camilo COMPREHENSIVE METABOLIC PANEL 2019-01-08 16:52:00 Shannon Camilo LACTIC ACID LEVEL, SEPSIS - NOW AND REPEAT 2X EVERY 3 HOURS 2019-01-08 16:52:00 Shannon Camilo AMYLASE LEVEL 2019-01-08 16:52:00 Shannon Camilo oddana LIPASE LEVEL 2019-01-08 16:52:00 Shannon Camilo oddana ESTIMATED GFR 2019-01-08 16:52:00 Shannon Camilo HC COMPLETE BLD COUNT W/AUTO DIFF 2019-01-04 04:30:00 Dustin Curry HEMOGLOBIN & HEMATOCRIT 2018-12-31 05:05:00 Dustin Curry HEMOGLOBIN & HEMATOCRIT 2018-12-30 12:26:00 Dustin Curry HC COMPLETE BLD COUNT W/AUTO DIFF 2018-12-30 04:15:00 Dustin Curry BASIC METABOLIC PANEL 2018-12-30 04:00:00 Dustin Curry ESTIMATED GFR 2018-12-30 04:00:00 Dustin Curry SURGICAL PATHOLOGY REQUEST 2018-12-29 11:25:00 Saleem Watts HC COMPLETE BLD COUNT W/AUTO DIFF 2018-12-29 10:57:00 Dustin Curry BASIC METABOLIC PANEL 2018-12-29 10:23:00 Dustin Curry ESTIMATED GFR 2018-12-29 10:23:00 Dustin Curry IA AN ELECTIVE ENDOTRACHEAL AIRWAY 2018-12-29 07:58:08 Mesha Mittal GASTROENTEROSTOMY, CARMINE-EN-Y, LAPAROSCOPIC, WITH INTRA OPERATIVE ENDOSCOPY 2018-12-29 07:17:00 Saleem Watts HC COMPLETE BLD COUNT W/AUTO DIFF 2018-12-21 10:38:00 Jayden jolley Radhayessica Zhao ECG 12-LEAD 2018-12-16 11:17:45 Saleem Watts ZINC LEVEL, SERUM 2018-12-16 10:55:00 Saleem Watts thodi VITAMIN B1 LEVEL, WHOLE BLOOD 2018-12-16 10:55:00 Saleem Watts COPPER LEVEL, SERUM 2018-12-16 10:55:00 Saleem Watts VITAMIN A LEVEL, PLASMA OR SERUM 2018-12-16 10:55:00 Sonya Watts PARTIAL THROMBOPLASTIN TIME (PTT) 2018-12-16 10:55:00 Maida Watts PROTHROMBIN TIME WITH INR 2018-12-16 10:55:00 Saleem Watts CBC WITH PLATELET AND DIFFERENTIAL 2018-12-16 10:55:00 Saleem Watts PARATHYROID HORMONE 2018-12-16 10:55:00 Saleem Watts HEMOGLOBIN A1C 2018-12-16 10:55:00 Saleem Watts TYPE AND SCREEN 2018-12-16 10:55:00 Saleem Watts URINALYSIS, AUTOMATED WITH MICROSCOPY 2018-12-16 10:46:00 Saleem Dunaway VITAMIN D 25 HYDROXY LEVEL 2018-12-16 10:24:00 Saleem Watts VITAMIN B12 LEVEL 2018-12-16 10:24:00 Saleem Watts thodi THYROID STIMULATING HORMONE 2018-12-16 10:24:00 Saleem Watts T4, FREE 2018-12-16 10:24:00 Saleem Watts TOTAL IRON BINDING CAPACITY 2018-12-16 10:24:00 Saleem Watts LIPID PANEL 2018-12-16 10:24:00 Saleem Watts COMPREHENSIVE METABOLIC PANEL 2018-12-16 10:24:00 Saleem Watts FERRITIN LEVEL 2018-12-16 10:24:00 Saleem Watts ESTIMATED GFR 2018-12-16 10:24:00 WattsHarveykamran [place] Rosario oddana C-REACTIVE PROTEIN 2018-12-16 10:23:00 Mac Saleem [place] M ethodist INSULIN, RANDOM 2018-12-16 10:23:00 Saleem Watts odist T3 2018-12-16 10:23:00 Saleem Watts Rosario oddana FOLATE LEVEL 2018-12-16 10:23:00 Saleem Watts Rosario oddana EGD BIOPSY SINGLE/MULTIPLE 2018-12-01 00:00:00 BRIE JAMES [facility] EGD DIAGNOSTIC BRUSH WASH 2018-11-10 00:00:00 BRIE JAMES CH, I [facility] FRAGMENTING OF KIDNEY STONE 2018-11-08 00:00:00 FELICIANO WEBB [facility] EGD BIOPSY SINGLE/MULTIPLE 2018-10-19 00:00:00 BRIE JAMES [facility] DIAGNOSTIC COLONOSCOPY 2018-10-19 00:00:00 BRIE JAMES CHI [facility] US abdomen complete 2018-06-15 00:00:00 BRIE JAMES [facility] EGD BIOPSY SINGLE/MULTIPLE 2018-02-18 00:00:[address] [facility] COLONOSCOPY W/LESION REMOVAL 2018-02-18 00:00:00 BRIE JAMES [facility] Plan of Care Planned Activity Planned Date Details Comments Source Future Scheduled Test 2019-09-09 00:00:00 INFLUENZA VACCINE [code = INFLUENZA VACCINE] Ronnie Zhao Future Scheduled Test 2002 00:00:00 Screening for molly gnant neoplasm of cervix (procedure) [code = 954069554] Ronnie marin Encounters Start Date/Time End Date/Time Encounter Type Admission Type Attendi [facility] Care Department Encounter ID Source 2018-12-15 09:31:00 2018-12-15 14:33:00 Departed Emergency Room [facility] [id number] [facility] 2018-12-01 07:16:00 2018-12-01 07:16:00 Registered Surgical Day Care [facility] [id number] [facility] 2018-11-29 18:58:00 2018-11-29 21:16:00 Departed Emergency Room 1 RANULFO ORELLANA [facility] [id number] [facility] 2018-11-10 09:08:00 2018-11-10 09:08:00 Registered Surgical Day Care [facility] [id number] [facility] 2018-11-08 05:06:00 2018-11-08 05:06:00 Registered Surgical Day Car e 3 FLEICIANO WEBB [facility] [id number] [facility] 2018-10-30 18:50:00 2018-10-30 20:34:00 Departed Emergency Room 1 JENNIFER EMANUEL [facility] [id number] [facility] 2018-10-19 10:45:00 2018-10-20 17:31:00 Discharged Inpatient (obs) [facility] [id number] [facility] 2018-10-18 18:07:00 2018-10-18 20:30:00 Departed Emergency Room [facility] [id number] [facility] 2018-06-15 08:55:00 2018-06-15 08:55:00 Registered Clinic 3 BRIE JAMES [facility] [id number] [facility] 2018-02-18 13:43:00 2018-02-18 13:43:00 Registered Surgical Day Care [facility] [id number] [facility] 2018-02-16 10:19:00 2018-02-16 14:24:00 Departed Emergency Room [facility] [id number] [facility] 2017-05-18 15:38:00 2017-05-20 16:25:00 Discharged Inpatient (obs) [facility] [id number] [facility] 2017-04-19 06:08:00 2017-04-19 06:08:00 Registered Surgical Day Care [facility] [id number] [facility] Results Test Description Test Time Test Comments Results Result Comments Source - XR ABDOMEN AP 1 V 2019-04-03 20:04:00 FAX: Sanju Conway [phone] [place]: B St: ADM FAX: Dakota Rai MD FAX: Jessica Solorio NP [phone] FAX: Jon Tellez [phone] Name: ANGELLEISA STEVE [facility] : 1980 Age/S: 38/F [address] Unit #: [id number] Loc: V.[address] [place] [address] Phys: Jessica Solorio NP Acct: [id number] Dis Date: Status: ADM IN PHONE #: [phone] Exam Date: 04/03/20191911 FAX #: [phone] Reason: abdominal pain EXAMS: CPT CODE: [id number] XR ABDOMEN AP 1 V [id number] HISTORY: ab dominal pain TECHNIQUE: AP abdomen x-ray COMPARISON: CT of the abdomen and pelvis March 02, 2016 FINDINGS: Nonobstructive bowel gas pattern. Copious amount of stool is present in the colon. No intra-abdominal mass effect. No abnormal calcifications are observed. Prior cholecystectomy. Anastomotic sutures are seen in the epigastric region. Visualized osseous structures are intact. Visualized thorax is within normal limits. IMPRESSION: Heavy colonic stool burden, consistent with constipation, may explain the patient's abdominal pain. Location: [facility] at 2004 Reported and signed by: Agustin Baugh MD CC: Sanju Tyler M.D.; Dakota Araiza; Jessica Solorio NP; Jon Chen Technologist: Jagdish Carter RT(R) Trnscrd Date/Time/By: 04/03/2019 (2003) : By: [email or web address] Orig Print D/T: S: 04/04/2019 (0813) PAGE 1 Signed Report COMPREHENSIVE METABOLIC PANEL 2019-04-03 19:06:00 Test Item SODIUM (test code = NA) 141 mmol/L 136-145 N POTASSIUM (test code = K) 4.8 mmol/L 3.5-5.1 N CHLORIDE (test code = CL) 105.0 mmol/L 98-107 N CARBON DIOXIDE (test code = CO2) 32.0 mmol/L 21-32 N ANION GAP (test code = GAP) 8.8 10-20 L GLUCOSE (test code = GLU) 107 mg/dL 74-106 H BLOOD UREA NITROGEN (test code = BUN) 13 mg/dL 7-18 N GLOMERULAR FILTRATION RATE (test code = GFR) > 60 mL/min >=60 Estimated GFR by using Modified MDRD formula.Chronic kidney disease is defined as either kidney damageor GFR <60 mL/min/1.73 m2 for >3 months. CREATININE (test code = CREAT) 0.60 mg/dL 0.55-1.02 N Note change in reference range due to change in reagent. BUN/CREATININE RATIO (test code = BUN/CREA) 21.7 10-20 H TOTAL PROTEIN (test code = PROT) 6.9 gram/dL 6.4-8.2 N ALBUMIN (test code = ALB) 3.6 g/dL 3.4-5.0 N GLOBULIN (test code = GLOB) 3.3 gram/dL 2.7-4.2 N ALBUMIN/GLOBULIN RATIO (test code = A/G) 1.1 0.75-1.50 N CALCIUM (test code = CA) 9.0 mg/dL 8.5-10.1 N BILIRUBIN TOTAL (test code = BILT) 0.20 mg/dL 0.0-1.0 N SGOT/AST (test code = AST) 50 IUnit/L 15-37 H SGPT/ALT (test code = ALT) 94 IUnit/L 12-78 H ALKALINE PHOSPHATASE TOTAL (test code = ALKP) 75 IUnit/L 45-117 N Note change in reference range due to change in reagent. COMPREHENSIVE METABOLIC [id number] 18:54:00* Test Item Value Reference Range Interpretation Comments SODIUM (test code = NA) 141 mmol/L 136-145 N POTASSIUM (test code = K) 4.8 mmol/L 3.5-5.1 N CHLORIDE (test code = CL) 105.0 mmol/L 98-107 N CARBON DIOXIDE (test code = CO2) mmol/L 21-32 ANION GAP (test code = GAP) 10-20 GLUCOSE (test code = GLU) mg/dL 74-106 BLOOD UREA NITROGEN (test code = BUN) mg/dL 7-18 GLOMERULAR FILTRATION RATE (test code = GFR) mL/min >=60 CREATININE (test code = CREAT) mg/dL 0.55-1.02 BUN/CREATININE RATIO (test code = BUN/CREA) 10-20 TOTAL PROTEIN (test code = PROT) gram/dL 6.4-8.2 ALBUMIN (test code = ALB) g/dL 3.4-5.0 GLOBULIN (test code = GLOB) gram/dL 2.7-4.2 ALBUMIN/GLOBULIN RATIO (test code = A/G) 0.75-1.50 CALCIUM (test code = CA) mg/dL 8.5-10.1 BILIRUBIN TOTAL (test code = BILT) mg/dL 0.0-1.0 SGOT/AST (test code = AST) IUnit/L 15-37 SGPT/ALT (test code = ALT) IUnit/L 12-78 ALKALINE PHOSPHATASE TOTAL (test code = ALKP) IUnit/L 45-117 CBC W/AUTO [id number] 18:37:00* Test Item Value Reference Range Interpretation Comments WHITE BLOOD CELL (test code = WBC) 6.6 K/mm3 4.5-12.5 N RED BLOOD CELL (test code = RBC) 4.27 mill/mm3 3.7-5.2 N HEMOGLOBIN (test code = HGB) 12.8 gram/dL 11.5-15.5 N HEMATOCRIT (test code = HCT) 39.6 % 36.0-46.0 N MEAN CELL VOLUME (test code = MCV) 92.7 fL 80-98 N MEAN CELL HGB (test code = MCH) 30.0 picogram 27.0-33.0 N MEAN CELL HGB CONCETRATION (test code = MCHC) 32.3 gram/dL 33.0-36. 0 L RED CELL DISTRIBUTION WIDTH (test code = RDW) 12.6 % 11.6-16. 2 N RED CELL DISTRIBUTION WIDTH SD (test code = RDW-SD) 42.4 fL 37 .0-51.0 N PLATELET COUNT (test code = PLT) 276 K/mm3 150-450 N MEAN PLATELET VOLUME (test code = MPV) 10.4 fL 6.7-11.0 N NEUTROPHIL % (test code = NT%) 50.4 % 39.0-69.0 N IMMATURE GRANULOCYTE % (test code = IG%) 0.3 % 0.0-5.0 N LYMPHOCYTE % (test code = LY%) 35.7 % 25.0-55.0 N MONOCYTE % (test code = MO%) 12.4 % 0.0-10.0 H EOSINOPHIL % (test code = EO%) 0.9 % 0.0-5.0 N BASOPHIL % (test code = BA%) 0.3 % 0.0-1.0 N NUCLEATED RBC % (test code = NRBC%) 0.0 % 0-0 N NEUTROPHIL # (test code = NT#) 3.30 K/mm3 1.8-7.7 N IMMATURE GRANULOCYTE # (test code = IG#) 0.02 x10 3/uL 0-0.03 N LYMPHOCYTE # (test code = LY#) 2.34 K/mm3 1.0-5.0 N MONOCYTE # (test code = MO#) 0.81 K/mm3 0-0.8 H EOSINOPHIL # (test code = EO#) 0.06 K/mm3 0.0-0.5 N BASOPHIL # (test code = BA#) 0.02 K/mm3 0.0-0.2 N NUCLEATED RBC # (test code = NRBC#) 0.00 K/mm3 0.0-0.1 N MANUAL DIFF REQUIRED (test code = MDIFF) NO CBC W/AUTO [id number] 18:31:00* Test Item Value Reference Range Interpretation Comments WHITE BLOOD CELL (test code = WBC) K/mm3 4.5-12.5 RED BLOOD CELL (test code = RBC) mill/mm3 3.7-5.2 HEMOGLOBIN (test code = HGB) 12.8 gram/dL 11.5-15.5 N HEMATOCRIT (test code = HCT) 39.6 % 36.0-46.0 N MEAN CELL VOLUME (test code = MCV) fL 80-98 MEAN CELL HGB (test code = MCH) picogram 27.0-33.0 MEAN CELL HGB CONCETRATION (test code = MCHC) gram/dL 33.0-36. 0 RED CELL DISTRIBUTION WIDTH (test code = RDW) % 11.6-16. 2 RED CELL DISTRIBUTION WIDTH SD (test code = RDW-SD) fL 37 .0-51.0 PLATELET COUNT (test code = PLT) K/mm3 150-450 MEAN PLATELET VOLUME (test code = MPV) fL 6.7-11.0 NEUTROPHIL % (test code = NT%) % 39.0-69.0 IMMATURE GRANULOCYTE % (test code = IG%) % 0.0-5.0 LYMPHOCYTE % (test code = LY%) % 25.0-55.0 MONOCYTE % (test code = MO%) % 0.0-10.0 EOSINOPHIL % (test code = EO%) % 0.0-5.0 BASOPHIL % (test code = BA%) % 0.0-1.0 NEUTROPHIL # (test code = NT#) K/mm3 1.8-7.7 LYMPHOCYTE # (test code = LY#) K/mm3 1.0-5.0 MONOCYTE # (test code = MO#) K/mm3 0-0.8 EOSINOPHIL # (test code = EO#) K/mm3 0.0-0.5 BASOPHIL # (test code = BA#) K/mm3 0.0-0.2 - CT NECK W/O [id number] 21:37:00 Name: LEISA ORTIZ [facility] : 1980 Age/S: 38 / F [address] [facility] Unit #: [id number] Loc: [place], [place] [address] Phys: Sanju Tyler MD Acct: [id number] Dis Date: Status: ADM IN PHONE #: [phone] Exam Date: 03/31/20192108 FAX #: [phone] Reason: neck abscess EXAMS: CPT CODE: [id number] CT NECK W/O CONTRAST 49819 HISTORY: Neck abscess and postop pain. COMPARISON: CT neck from March 23, 2019. CT neck with and without contrast: mL of Isovue-370. Automated exposure control. Location: TH. Visualized brain parenchyma enhances homogeneously. No parenchymal mass. Intraorbital contents are unremarkable. Paranasal sinuses demonstrating polyps within the floor of the right maxillary sinus and mucosal thickening of the floor of the left maxillary sinus and the left sphenoid sinus. Mastoid air cells are clear. The hard and soft palate are partially obscured by beam hardening artifact from patient's dental work. Base of the tongue and oral tongue are enhancing homogeneously. Uvula is midline and mildly thickened. Fossa of Rosenmueller and parapharyngeal spaces are symmetrical. No parapharyngeal or retropharyngeal abscess. No prevertebral abscess. No tonsillar abscess is noted. The tonsillar pillars are no longer enlarged. [place] tonsils are moderately enlarged with mild narrowing of the nasopharyngeal airway with protrusion into the urinary. No abscess collection is noted. The submandibular glands enhance homogeneou sly without [place] duct dilatation. No sialoliths. No Stensen's duct si alolith or dilatation. Homogeneous enhancement of the parotid glands. Symmetrical carotid spaces and cloth bin packer spaces as well. Shotty neptali opathy from level 1 through 5. No pathologic adenopathy is visible. True and false cords are normal. Epiglottis and aryepiglottic folds are omari l. Vallecula and piriform sinuses are symmetrical. Thyroid glands are mi ldly enlarged. Trachea is widely patent. Superior mediastinum is unremar kable. Lung apices are clear. No lytic or blastic lesions are visible wi thin the bony skeleton. IMPRESSION: Previously noted tonsillar pillar enlargement has resolved. Suppurative changes s een previously have resolved. Persistent palatine tonsillar enlargement with mild protrusion into the airway with nasopharyngeal narrowing. Co rrelate clinically. No tonsillar abscess. No retropharyngeal abscess. No parapharyngeal abscess. No PAGE 1 Signed Report (CONTINUED) Name: LEISA ORTIZ [facility] : 1980 Age/S: 38 / F [address] Unit #: [id number] Loc: [place] [address] Phys: Sanju Tyler MD Acct: [id number] Dis Date: Status: ADM IN PHONE #: [phone] Exam Date: 03/31/20192108 FAX #: [phone] Reason: neck abscess EXAMS: CPT CODE: [id number] CT NECK W/O CONTRAST 70408 < Continued> pathologic adenopathy. at 2136 Reported and signed by: Junito Dallas M.D. CC: Sanju Tyler M.D.; Jon Chen Technologist:RT Dg(R)(CT) CTDI: DLP: Trnscb Date/Time: 03/31/2019 (2136) t.SDR.TH4 Orig Print D/T: S: 04/01/2019 (09) PAGE 2 Signed Report - CT NECK W/[id number] 21:37:00 Name: LEISA ORTIZ [facility] : 1980 Age/S: 38 / F [address] Unit #: [id number] Loc: [place] [address] Phys: Sanju Tyler MD Acct: [id number] Dis Date: Status: ADM IN PHONE #: [phone] Exam Date: 03/31/20192108 FAX #: [phone] Reason: neck abscess EXAMS: CPT CODE: [id number] CT NECK W/CONTRAST 76058 HISTORY: Neck abscess and postop pain. COMPARISON: CT neck from March 23, 2019. CT neck with and without contrast: mL of Isovue-370. Automated exposure control. Location: TH. Visualized brain parenchyma enhances homogeneously. No parenchymal mass. Intraorbital contents are unremarkable. Paranasal sinuses demonstrating polyps within the floor of the right maxillary sinus and mucosal thickening of the floor of the left maxillary sinus and the left sphenoid sinus. Mastoid air cells are clear. The hard and soft palate are partially obscured by beam hardening artifact from patient's dental work. Base of the tongue and oral tongue are enhancing homogeneously. Uvula is midline and mildly thickened. Fossa of Rosenmueller and parapharyngeal spaces are symmetrical. No parapharyngeal or retropharyngeal abscess. No prevertebral abscess. No tonsillar abscess is noted. The tonsillar pillars are no longer enlarged. [place] tonsils are moderately enlarged with mild narrowing of the nasopharyngeal airway with protrusion into the urinary. No abscess collection is noted. The submandibular glands enhance homogeneou sly without [place] duct dilatation. No sialoliths. No Stensen's duct si alolith or dilatation. Homogeneous enhancement of the parotid glands. Symmetrical carotid spaces and cloth bin packer spaces as well. Shotty neptali opathy from level 1 through 5. No pathologic adenopathy is visible. True and false cords are normal. Epiglottis and aryepiglottic folds are omari l. Vallecula and piriform sinuses are symmetrical. Thyroid glands are mi ldly enlarged. Trachea is widely patent. Superior mediastinum is unremar kable. Lung apices are clear. No lytic or blastic lesions are visible wi thin the bony skeleton. IMPRESSION: Previously noted tonsillar pillar enlargement has resolved. Suppurative changes s een previously have resolved. Persistent palatine tonsillar enlargement with mild protrusion into the airway with nasopharyngeal narrowing. Co rrelate clinically. No tonsillar abscess. No retropharyngeal abscess. No parapharyngeal abscess. No PAGE 1 Signed Report (CONTINUED) Name: LEISA ORTIZ [facility] : 1980 Age/S: 38 / F [address] [facility] Unit #: [id number] Loc: [place], [place] [address] Phys: Sanju Tyler MD Acct: [id number] Dis Date: Status: ADM IN PHONE #: [phone] Exam Date: 03/31/20192108 FAX #: [phone] Reason: neck abscess EXAMS: CPT CODE: [id number] CT NECK W/CONTRAST 54152 < Continued> pathologic adenopathy. at 2470 Reported and signed by: Junito Dallas M.D. CC: Sanju Tyler M.D.; Jon Chen Technologist:Juan Antonio Bangura RT(R)(CT) CTDI: DLP: Trnscb Date/Time: 03/31/2019 (2136) taniaSTEVER.TH4 Orig Print D/T: S: 04/01/2019 (0177) PAGE 2 Signed Report COMPREHENSIVE METABOLIC [id number] 19:42:00* Test Item Value Reference Range Interpretation Comments SODIUM (test code = NA) 139 mmol/L 136-145 N POTASSIUM (test code = K) 4.4 mmol/L 3.5-5.1 N CHLORIDE (test code = CL) 105.0 mmol/L 98-107 N CARBON DIOXIDE (test code = CO2) 28.0 mmol/L 21-32 N ANION GAP (test code = GAP) 10.4 10-20 N GLUCOSE (test code = GLU) 191 mg/dL 74-106 H BLOOD UREA NITROGEN (test code = BUN) 19 mg/dL 7-18 H GLOMERULAR FILTRATION RATE (test code = GFR) > 60 mL/min >=60 Estimated GFR by using Modified MDRD formula.Chronic kidney disease is defined as either kidney damageor GFR <60 mL/min/1.73 m2 for >3 months. CREATININE (test code = CREAT) 0.60 mg/dL 0.55-1.02 N Note change in reference range due to change in reagent. BUN/CREATININE RATIO (test code = BUN/CREA) 31.7 10-20 H TOTAL PROTEIN (test code = PROT) 7.5 gram/dL 6.4-8.2 N ALBUMIN (test code = ALB) 3.9 g/dL 3.4-5.0 N GLOBULIN (test code = GLOB) 3.6 gram/dL 2.7-4.2 N ALBUMIN/GLOBULIN RATIO (test code = A/G) 1.1 0.75-1.50 N CALCIUM (test code = CA) 8.8 mg/dL 8.5-10.1 N BILIRUBIN TOTAL (test code = BILT) 0.30 mg/dL 0.0-1.0 N SGOT/AST (test code = AST) 50 IUnit/L 15-37 H SGPT/ALT (test code = ALT) 78 IUnit/L 12-78 N ALKALINE PHOSPHATASE TOTAL (test code = ALKP) 96 IUnit/L 45-117 N Note change in reference range due to change in reagent. COMPREHENSIVE METABOLIC [id number] 19:30:00* Test Item Value Reference Range Interpretation Comments SODIUM (test code = NA) 139 mmol/L 136-145 N POTASSIUM (test code = K) 4.4 mmol/L 3.5-5.1 N CHLORIDE (test code = CL) 105.0 mmol/L 98-107 N CARBON DIOXIDE (test code = CO2) mmol/L 21-32 ANION GAP (test code = GAP) 10-20 GLUCOSE (test code = GLU) mg/dL 74-106 BLOOD UREA NITROGEN (test code = BUN) mg/dL 7-18 GLOMERULAR FILTRATION RATE (test code = GFR) mL/min >=60 CREATININE (test code = CREAT) mg/dL 0.55-1.02 BUN/CREATININE RATIO (test code = BUN/CREA) 10-20 TOTAL PROTEIN (test code = PROT) gram/dL 6.4-8.2 ALBUMIN (test code = ALB) g/dL 3.4-5.0 GLOBULIN (test code = GLOB) gram/dL 2.7-4.2 ALBUMIN/GLOBULIN RATIO (test code = A/G) 0.75-1.50 CALCIUM (test code = CA) mg/dL 8.5-10.1 BILIRUBIN TOTAL (test code = BILT) mg/dL 0.0-1.0 SGOT/AST (test code = AST) IUnit/L 15-37 SGPT/ALT (test code = ALT) IUnit/L 12-78 ALKALINE PHOSPHATASE TOTAL (test code = ALKP) IUnit/L 45-117 CBC W/AUTO [id number] 19:10:00* Test Item Value Reference Range Interpretation Comments WHITE BLOOD CELL (test code = WBC) 4.0 K/mm3 4.5-12.5 L RED BLOOD CELL (test code = RBC) 4.02 mill/mm3 3.7-5.2 N HEMOGLOBIN (test code = HGB) 12.1 gram/dL 11.5-15.5 N HEMATOCRIT (test code = HCT) 37.2 % 36.0-46.0 N MEAN CELL VOLUME (test code = MCV) 92.5 fL 80-98 N MEAN CELL HGB (test code = MCH) 30.1 picogram 27.0-33.0 N MEAN CELL HGB CONCETRATION (test code = MCHC) 32.5 gram/dL 33.0-36. 0 L RED CELL DISTRIBUTION WIDTH (test code = RDW) 12.3 % 11.6-16. 2 N RED CELL DISTRIBUTION WIDTH SD (test code = RDW-SD) 41.8 fL 37 .0-51.0 N PLATELET COUNT (test code = PLT) 275 K/mm3 150-450 N MEAN PLATELET VOLUME (test code = MPV) 10.1 fL 6.7-11.0 N NEUTROPHIL % (test code = NT%) 89.4 % 39.0-69.0 H IMMATURE GRANULOCYTE % (test code = IG%) 0.5 % 0.0-5.0 N LYMPHOCYTE % (test code = LY%) 8.5 % 25.0-55.0 L MONOCYTE % (test code = MO%) 1.3 % 0.0-10.0 N EOSINOPHIL % (test code = EO%) 0.0 % 0.0-5.0 N BASOPHIL % (test code = BA%) 0.3 % 0.0-1.0 N NUCLEATED RBC % (test code = NRBC%) 0.0 % 0-0 N NEUTROPHIL # (test code = NT#) 3.56 K/mm3 1.8-7.7 N IMMATURE GRANULOCYTE # (test code = IG#) 0.02 x10 3/uL 0-0.03 N LYMPHOCYTE # (test code = LY#) 0.34 K/mm3 1.0-5.0 L MONOCYTE # (test code = MO#) 0.05 K/mm3 0-0.8 N EOSINOPHIL # (test code = EO#) 0.00 K/mm3 0.0-0.5 N BASOPHIL # (test code = BA#) 0.01 K/mm3 0.0-0.2 N NUCLEATED RBC # (test code = NRBC#) 0.00 K/mm3 0.0-0.1 N MANUAL DIFF REQUIRED (test code = MDIFF) NO - CT NECK W/[id number] 08:29:00 Name: LEISA ORTIZZABETH [facility] : 1980 Age/S: 38 / F [address] [facility] Unit #: [id number] Loc: [place] [address] Phys: Maco Ariza MD Acct: [id number] Dis Date: Status: REG ER PHONE #: [phone] Exam Date: 03/23/2019815 FAX #: [phone] Reason: post tonsillectomy, pharyngeal edema EXAMS: CPT CODE: [id number] CT NECK W/CONTRAST 73705 HISTORY: Post tonsillectomy with pharyngeal edema. COMPARISON: Soft tissues of the neck from same day. CT neck with contrast: 100 mL of Isovue-370. Automated exposure control. Location: [facility]. Visualized brain parenchyma is enhancing homogeneously. Intraorbital contents are unremarkable. Visualized paranasal sinuses demonstrating polyps within the maxillary sinuses and mucosal thickening. Mastoid air cells are clear. Symmetrical fossa of Rosenmueller and parapharyngeal spaces. Hard and soft palate are enhancing homogeneously. Hard palate is partially being obscured by artifact from patient's dental work. Moderate tonsillar hypertrophy especially the palatine tonsils with moderate narrowing of the airway. Correlate clinically. The uvula is enlarged as well,. Tonsillar pillars are mildly edematous. No retropharyngeal or parapharyngeal abscess collection. No prevertebral abscess. Symmetrical carotid spaces. Store Team Leader space and the parotid spaces are unremarkable. Parotid glands enhance homogeneously. Submandibular glands enhance homogeneously. No pathologic adenopathy. Epiglottis and aryepiglottic folds are normal. Piriform sinuses and vallecula are unremarkable. True and false co rds are normal. Unremarkable thyroid glands. A mediastinum is unremarkable . Lung apices are clear. No lytic or blastic lesions are noted within the bony skeleton. IMPRESSION: Moderate miguel stone tonsillar hypertrophy and edema and enlargement of the tonsillar pi llars resulting in mild to moderate narrowing. Enlargement of the uvula as well. Correlate clinically. No retropharyngeal or parapharyngeal or p revertebral abscess. No pathologic adenopathy. PAGE 1 Signed Report (CONTINUED) [facility] 1980 Age/S: 38 / F [address] [facility] Unit #: [id number] Loc: [place] [address] Phys: Maco Ariza MD Acct: [id number] Dis Date: Status: REG ER PHONE #: [phone] Exam D ate: 03/23/2019 0816 FAX #: [phone] Reason: post tonsillectomy, pharyngeal edema EXAMS: CPT CODE: [id number] CT NECK W/CONTRAST 43644 <Continued> at 0829 Reported and signed by: Junito Dallas M.D. CC: Jon Chen; Maco Ariza MD Technologist:Jakceline Russo CTDI: DLP: Trnscb Date/Time: 03/23/2019 (828) t.HORTENCIAR.TH4 Orig Print D/T: S: 03/23/2019 (0832) PAGE 2 Signed Report COMPREHENSIVE METABOLIC [id number] 08:04:00* Test Item Value Reference Range Interpretation Comments SODIUM (test code = NA) 142 mmol/L 136-145 N POTASSIUM (test code = K) 3.4 mmol/L 3.5-5.1 L CHLORIDE (test code = CL) 104 mmol/L 101-109 N CARBON DIOXIDE (test code = CO2) 31.7 mmol/L 21-32 N ANION GAP (test code = GAP) 10 mmol/L 10-20 N GLUCOSE (test code = GLU) 100 mg/dL 74-106 N BLOOD UREA NITROGEN (test code = BUN) 9 mg/dL 3-21 N CREATININE (test code = CREAT) 0.74 mg/dL 0.55-1.3 N BUN/CREATININE RATIO (test code = BUN/CREA) 12.2 10-20 N TOTAL PROTEIN (test code = PROT) 6.5 g/dL 6.5-8.4 N ALBUMIN (test code = ALB) 3.1 g/dL 3.4-4.8 L GLOBULIN (test code = GLOB) 3.4 G/DL 1-10 N ALBUMIN/GLOBULIN RATIO (test code = A/G) 0.91 RATIO 0.75-1.50 N CALCIUM (test code = CA) 8.6 mg/dL 8.4-10.2 N BILIRUBIN TOTAL (test code = BILT) 0.80 mg/dL 0.0-1.0 N SGOT/AST (test code = AST) 300 U/L 6-32 H SGPT/ALT (test code = ALT) 259 U/L 12-78 H N ote: Change in REFERENCE RANGE due to new reagent method. ALKALINE PHOSPHATASE TOTAL (test code = ALKP) 94 U/L 38-126 N CBC W/AUTO [id number] 08:00:00* Test Item Value Reference Range Interpretation Comments WHITE BLOOD CELL (test code = WBC) 5.0 K/mm3 4.5-12.5 N RED BLOOD CELL (test code = RBC) 3.67 mill/mm3 3.7-5.2 L HEMOGLOBIN (test code = HGB) 11.0 gram/dL 11.5-15.5 L HEMATOCRIT (test code = HCT) 33.3 % 36.0-46.0 L MEAN CELL VOLUME (test code = MCV) 90.7 fL 80-98 N MEAN CELL HGB (test code = MCH) 30.0 picogram 27.0-33.0 N MEAN CELL HGB CONCETRATION (test code = MCHC) 33.0 gram/dL 33.0-36. 0 N RED CELL DISTRIBUTION WIDTH (test code = RDW) 11.6 % 11.6-16. 2 N RED CELL DISTRIBUTION WIDTH SD (test code = RDW-SD) 38.9 fL 37 .0-51.0 N PLATELET COUNT (test code = PLT) 164 K/mm3 150-450 N MEAN PLATELET VOLUME (test code = MPV) 10.3 fL 6.7-11.0 N NEUTROPHIL % (test code = NT%) 49.9 % 39.0-69.0 N LYMPHOCYTE % (test code = LY%) 35.0 % 25.0-55.0 N MONOCYTE % (test code = MO%) 12.3 % 0.0-10.0 H EOSINOPHIL % (test code = EO%) 2.2 % 0.0-5.0 N BASOPHIL % (test code = BA%) 0.2 % 0.0-1.0 N NEUTROPHIL # (test code = NT#) 2.48 K/mm3 1.8-7.7 N LYMPHOCYTE # (test code = LY#) 1.74 K/mm3 1.0-5.0 N MONOCYTE # (test code = MO#) 0.61 K/mm3 0-0.8 N EOSINOPHIL # (test code = EO#) 0.11 K/mm3 0.0-0.5 N BASOPHIL # (test code = BA#) 0.01 K/mm3 0.0-0.2 N COMPREHENSIVE METABOLIC [id number] 08:00:00* Test Item Value Reference Range Interpretation Comments SODIUM (test code = NA) 142 mmol/L 136-145 N POTASSIUM (test code = K) 3.4 mmol/L 3.5-5.1 L CHLORIDE (test code = CL) 104 mmol/L 101-109 N CARBON DIOXIDE (test code = CO2) 31.7 mmol/L 21-32 N ANION GAP (test code = GAP) 10 mmol/L 10-20 N GLUCOSE (test code = GLU) 100 mg/dL 74-106 N BLOOD UREA NITROGEN (test code = BUN) 9 mg/dL 3-21 N CREATININE (test code = CREAT) 0.74 mg/dL 0.55-1.3 N BUN/CREATININE RATIO (test code = BUN/CREA) 12.2 10-20 N TOTAL PROTEIN (test code = PROT) gram/dL 6.4-8.2 ALBUMIN (test code = ALB) g/dL 3.4-5.0 GLOBULIN (test code = GLOB) g/dL 2.7-4.2 ALBUMIN/GLOBULIN RATIO (test code = A/G) 0.75-1.50 CALCIUM (test code = CA) 8.6 mg/dL 8.4-10.2 N BILIRUBIN TOTAL (test code = BILT) mg/dL 0.2-1.2 SGOT/AST (test code = AST) IUnit/L 15-37 SGPT/ALT (test code = ALT) U/L 10-69 ALKALINE PHOSPHATASE TOTAL (test code = ALKP) IUnit/L 45-117 - XR NECK SOFT [id number] 07:19:00 Name: LEISA ORTIZ [facility] : 1980 Age/S:38 /F [address] [facility] Unit#:[id number] Loc: [place] [address] Phys: Cassia Emery MD Dis Date: PHONE #: [phone] Status: ESTRADA HERMAN FAX #: [phone] Exam Date: 03/23/2019 Reason: sore throat EXAMS: CPT CODE: [id number] XR NECK SOFT TISSUE 27425 HISTORY: sore throat EXAM: AP and lateral views of the neck soft tissues. FINDINGS: Near complete soft tissue effacement of the pharyngeal airway. Mild prevertebral soft tissue swelling. No tracheal narrowing or deviation. No radiopaque foreign body is identified. Regional osseous structures are unremarkable. IMPRESSION: Near complete soft tissue effacement of the pharyngeal airway. Mild prevertebral soft tissue swelling. Correlate with CT. LOCATION: at 0719 Reported and signed by: Nay Bates D.O. CC: Cassia Davis MD; Jon Chen Technologist: Jackeline Russo Trnscrpt Data: 03/23/2019 (718) tMARIUSZ LDP1 Orig Print D/T: S: 03/23/2019 (07) PAGE 1 Signed Report [facility] [id number] 09:42:00 [place] [address] Patient Name: LEISA ORTIZ MR #: [id number] : 1980 Age/Sex: 38/F Req #: [id number] Adm Physician: Ordered by: BRIE JAMES MD Report #: [id number] Location: MRI Room/Bed: Procedure: 0 115-0003 MRI/MRI MRCP WWO Exam Date: Exam Time: REPORT STATUS: Signed MRI of the cassy porter, MRCP. History: Dilated common bile duct. Comparison study: CT scan of the abdomen and pelvis dated November 29, 2018 and ultrasound dated June 15, 2018. TECHNIQUE: Multiplanar, multisequence images of the abdomen were acquired without the administration of intravenous gadolinium as per the MRCP protocol. Three-dimensional reconstructions were acquired and utilized by the dictating radiologist at the time of interpretation. Findings: No pleural effusion is seen. The abdomen is limited by lack of contrast. The sandra er demonstrates a 4 mm increased T2, decreased T1 weighted lesion in the anter ior segment of the right lobe which statistically most likely represents a tin y cyst. The spleen, pancreas, kidneys and adrenal glands are unremarkable. The portal vein is patent measuring 1.3 cm. The previously seen renal calcific ations are not well seen by MRI. No dilated loops bowel are seen suggest obstruction. There is no ascites. The aorta is normal in caliber. No suspiciou s adenopathy is seen. The visualized osseous structures are unremarkable. MRCP demonstrates post hysterectomy changes. No evidence of intra or extra hepatic biliary dilatation is seen with the CBD measuring 6.5 mm. The pancreat ic duct is normal in caliber. Impression: 1. Status post cholecystectomy with normal caliber CBD. No choledocholithiasis. 2. Likely tiny cyst in the ri ght lobe of the liver. 3. No other significant findings. Signed by: Maria A mandel MD on 02/22/2019 9:51 AM Dictated By: MARIA A AVALOS MD Electr onically Signed By: MARIA A AVALOS MD on 02/22/19950 Transcribed By: LOUIE on 02/22/19950 COPY TO: BRIE JAMES MD Blood culture, aerobic & [id number] 02:03:05* Test Item Value Reference Range Interpretation Comments Blood culture isolate (test code = 600-7) No growth after 5 days of incubation. Specimen InformationSpecimen Source: BloodSpecimen Site: Antecubital, right [place] [facility] with platelet and [id number] 07:28:47* Test Item Value Reference Range Interpretation Comments WBC (test code = 57750-5) 3.34 4.50- 11.00 k/uL L RBC (test code = 66621-5) 2.64 m/uL 4.2-5.5 L HGB (test code = 718-7) 8.3 g/dL 12-16 L HCT (test code = 4544-3) 25.5 % 37-47 L MCV (test code = 787-2) 96.6 fL 82-100 MCH (test code = 785-6) 31.4 pg 27-34 MCHC (test code = 786-4) 32.5 g/dL 31-37 RDW - SD (test code = 12739-0) 46.8 fL 37-55 MPV (test code = 73342-5) 10.2 fL 8.8-13.2 Platelet count (test code = 97700-5) 232 150- 400 k/uL Nucleated RBC (test code = 57008-1) 0.00 /100 WBC Neutrophils (test code = 17044-1) 29.0 % 39-69 L Lymphocytes (test code = 68235-8) 53.0 % 25-45 H Monocytes (test code = 17362-0) 9.0 % 0-10 Eosinophils (test code = 13554-2) 8.0 % 0-5 H Basophils (test code = 55420-6) 1.0 % 0-1 Lab Interpretation (test code = 05797-3) Abnormal [place] [facility] [id number] 07:28:47* Test Item Value Reference Range Interpretation Comments Manual differential (test code = 04564-7) PERFORMED Neutrophils (test code = 94935-6) 29.0 % 39-69 L Lymphocytes (test code = 47514-3) 53.0 % 25-45 H Monocytes (test code = 21716-0) 9.0 % 0-10 Eosinophils (test code = 98728-0) 8.0 % 0-5 H Basophils (test code = 21688-4) 1.0 % 0-1 Metamyelocytes (test code = 740-1) 0 % Promyelocytes (test code = 783-1) 0 % Reactive lymphocytes (test code = 733-6) Few Platelet slide review (test code = 96741-2) Marcus adequate Anisocytosis (test code = 702-1) Moderate Polychromasia (test code = 94093-7) Moderate Ovalocytes (test code = 774-0) Moderate Enlarged platelets (test code = 74265-6) Moderate A Lab Interpretation (test code = 00133-2) Abnormal [place] [facility] [id number] 05:12:44* Test Item Value Reference Range Interpretation Comments Sodium (test code = 2951-2) 139 135- 148 mEq/L Potassium (test code = 2823-3) 3.8 3.5- 5.0 mEq/L Chloride (test code = 2075-0) 106 98- 112 mEq/L CO2 (test code = 8-9) 24 24- 31 mEq/L Anion gap (test code = 36423-2) 9@ANIO 7- 15 mEq/L BUN (test code = 3094-0) 11 mg/dL 6-20 Creatinine (test code = 2160-0) 0.65 mg/dL 0.5-0.9 Glucose (test code = 2345-7) 85 mg/dL 65-99 Calcium (test code = 06521-6) 8.5 mg/dL 8.3-10.2 [place] [facility] [id number] 05:12:44* Test Item Value Reference Range Interpretation Comments Magnesium (test code = 59034-6) 2.0 mg/dL 1.6-2.6 [place] MethodistPhosph[facility] [id number] 05:12:43* Test Item Value Reference Range Interpretation Comments Phosphorus (test code = 2777-1) 3.7 mg/dL 2.4-4.5 [place] MethodistEstimated [id number] 05:12:43* Test Item Value Reference Range Interpretation Comments Estimated GFR (test code = 5488) >=90 mL/min/1.73 m2 Catergory Units InterpretationG1 >=90 Normal or highG2 60-89 Mildly lidenlnvyO1l 45-59 Mildly to moderately oynmtbrgsA2s 30-44 Moderately to severely decreasedG4 15-29 Severely decreasedG5 <15 Kidney failureThe eGFR was calculated using the Chronic Kidney Disease Epidemiology Collaboration (CKD-EPI) equation. Interpretation is based on recommendations of the National Kidney Foundation-Kidney Disease Outcomes Quality Initiative (NKF-KDOQI) published in 2014. [place] [facility]Occ[facility] blood, [id number] 16:18:21* Test Item Value Reference Range Interpretation Comments Occult blood, stool (test code = 2334-1) Positive for Occult blood A Specimen I nformationSpecimen Source: StoolSpecimen Site: Nonpreserved Lab Interpretation (test code = 67933-7) Abnormal [place] MethodistHepatic function [id number] 23:24:30* Test Item Value Reference Range Interpretation Comments Albumin (test code = 1751-7) 3.4 g/dL 3.5-5 L Total bilirubin (test code = 1974-) 0.5 mg/dL 0-1.2 Bilirubin direct (test code = 1967-7) <0.2 0-0.3 Alkaline phosphatase (test code = 6768-6) 61 U/L 35-104 Protein (test code = 2885-2) 6.6 g/dL 6.3-8.3 Bivwfsw5187.6-7.0 g/dL1 bomt6844.4-7.6 g/dL7 months-1cvms749.1-7.3 g/dL1-2 .6-7.5 g/dL>3 zrhwo447.0-8.0 g/sH17-1576747.3-8.3 g/dL ALT (test code = 1742-6) 24 U/L 5-50 AST (test code = 1920-8) 20 U/L 10-35 Lab Interpretation (test code = 86363-7) Abnormal [place] MethodistLactic acid xyiro1122-15-26 23:19:28* Test Item Value Reference Range Interpretation Comments Lactic acid (test code = 51134-2) 0.8 mmol/L 0.5-2.2 [place] MethodistUrinalysis screen and microscopy, with reflex to culture 2019-01-08 22:46:49* Test Item Value Reference Range Interpretation Comments Specimen site (test code = 6753960) Clean catch Color, UA (test code = 5778-6) Yellow Appearance, UA (test code = 5767-9) Hazy Specific gravity, UA (test code = 5811-5) 1.021 1.001-1.035 pH, UA (test code = 5803-2) 8.0 5.0-8.5 Protein, UA (test code = 23999-6) Negative Negative Glucose, UA (test code = 25372-9) Negative Negative Ketones, UA (test code = 2514-8) Trace Negative A Bilirubin, UA (test code = 5770-3) Negative Negative Blood, UA (test code = 5794-3) Negative Negative Nitrite, UA (test code = 5802-4) Negative Negative Urobilinogen, UA (test code = 84761-2) 4.0 <2.0 A Leukocyte esterase, UA (test code = 5799-2) Negative Negative Epithelial cells, UA (test code = 5787-7) <1 /HPF WBC, UA (test code = 5821-4) None seen 0- 4 /HPF RBC, UA (test code = 99165-5) <1 0- 5 /HPF Bacteria, UA (test code = 40521-3) None seen None seen Yeast, UA (test code = 09128-9) None seen Yeast with pseudohyphae, UA (test code = 35048-2) None seen Lab Interpretation (test code = 63577-9) Abnormal [place] [facility] Contrast Abdomen W Contrast Pelvis W Contrast 2019-01-08 21:56:19Hm Interface, Radiology Results 01/08/2019 9:59 PM CSTEXAMINATION: CT CHEST W CONTRAST ABDOMEN W CONTRAST PELVIS W CONTRASTCLINICAL HISTORY: r o pneumonia s p gastric bypass revision with fevers to r o any leakTECHNIQUE:An emergency study was performed at [address] images were acquired using low-dose technique with iterative reconstructions and/or automated exposure control to reduce radiation dose. Multiple axial images of the chest, abdomen, and pelvis were obtained following administration of intravenous and oral contrast. Sagittal, axial and coronal computerized reformatted images were obtained.COMPARISON: Portable chest, obtained on 01/08/2019 at 1916 hours.CHEST:Skeletal structures are within normal limits. There are no infiltrates, pleural fluid or parenchymal masses. The heart is normal in size. The aorta and great vessels are normal. Coronary artery calcification is not seen. Pulmonary arteries and veins are normal in caliber. Superior vena cava is normal. The mediastinum is free of masses and adenopathy.ABDOMEN:Skeletal structures are within normal limits. The liver, spl een and pancreas are normal. Intrahepatic biliary ducts are mildly dilated. Comm on bile duct is dilated, up to 9 mm. A filling defect is suggested in the caudal common duct. The gallbladder is surgically absent. The adrenal glands and kidne ys are normal. The abdominal aorta and inferior vena cava are normal. There is n o retroperitoneal adenopathy. Postoperative changes from Carmine-en-Y gastric bypas s and hiatal hernia repair are seen. Edema is adjacent to the gastric pouch and in the region of the hiatal hernia repair. A fluid collection is not seen. The e xcluded portion of the stomach is fluid-filled, but not distended. Gastrojejunos laura is patent. An intussusception is in the Carmine limb, faintly outlined by cont rast. Extravasation is not appreciated. Remaining small bowel is not dilated. Th e appendix is not discretely identified. A moderate to large amount of stool is seen throughout the colon. Contrast is in the distal colon.PELVIS:Bladder is com pletely collapsed. Uterus is not seen. A 3.5 cm right paramedian cyst is present . Its slightly increased density raises possibility of hemorrhagic cyst. There i s no free fluid.IMPRESSION:Normal CT scan of the chest. Status post gastric bypa ss and hiatal hernia repair. Significant edema remains in the operative site, wi thout fluid collection or extravasation. Intussusception in the Carmine limb, faint ly outlined by contrast material. Contrast has progressed beyond the intussuscep tion. Probable constipation. Probable right ovarian hemorrhagic cyst. Mildly dil ated biliary system, possibly secondary to postoperative ectasia. Suggestion of a filling defect in the caudal common duct raises the possibility of a retained calculus. This could be verified with MRCP. Status post hysterectomy and cholecy stectomy.[facility]-ZL74PJUXTbzozob MethodistXR Chest 1 Vw Dfurxoly0460-35-80 20:46:39 Hm Interface, Radiology Results - 01/08/2019 8:49 PM CSTEXAMINATION: XR CHEST 1 VW PORTABLECLINICAL HISTORY: r o pneumoniaCOMPARISON:None .IMPRESSIO N:Cardiomediastinal silhouette and pulmonary vasculature are within normal limit s.Lungs are clear. No pleural effusion or pneumothorax.Bones are unremarkable. [id number] MethodistUrine rczbxxu7716-21-18 20:04:29* Test Item Value Reference Range Interpretation Comments Urine culture (test code = 6474915) SEE COMMENT Bacteriuria screen negative. [place] MethodistType and bkxuaj9011-29-81 18:11:00* Test Item Value Reference Range Interpretation Comments ABO grouping (test code = 883-9) O Rh type (test code = 93459-4) POS Antibody screen (gel) (test code = 890-4) NEG [place] MethodistComprehensive metabolic wkvdx5064-40-52 17:56:25* Test Item Value Reference Range Interpretation Comments Sodium (test code = 2951-2) 137 135- 148 mEq/L Potassium (test code = 2823-3) 4.0 3.5- 5.0 mEq/L Chloride (test code = 5-0) 99 98- 112 mEq/L CO2 (test code = 2027-9) 26 24- 31 mEq/L Anion gap (test code = 33691-7) 12@ANIO 7- 15 mEq/L BUN (test code = 3094-0) 9 mg/dL 6-20 Creatinine (test code = 2160-0) 0.75 mg/dL 0.5-0.9 Glucose (test code = 2345-7) 141 mg/dL 65-99 H Calcium (test code = 83325-2) 9.2 mg/dL 8.3-10.2 Protein (test code = 2885-2) 7.7 g/dL 6.3-8.3 Yhotmzz0341.6-7.0 g/dL1 wyme9962.4-7.6 g/dL7 months-2izis841.1-7.3 g/dL1-2 .6-7.5 g/dL>3 bxaly107.0-8.0 g/kC73-7366728.3-8.3 g/dL Albumin (test code = 1751-7) 3.9 g/dL 3.5-5 A/G ratio (test code = 1759-0) 1.0 0.7-3.8 Alkaline phosphatase (test code = 6768-6) 72 U/L 35-104 AST (test code = 1920-8) 27 U/L 10-35 ALT (test code = 1742-6) 30 U/L 5-50 Total bilirubin (test code = 1975-2) 0.5 mg/dL 0-1.2 Lab Interpretation (test code = 85025-4) Abnormal [place] MethodistLipase rweai0772-62-02 17:56:25* Test Item Value Reference Range Interpretation Comments Lipase (test code = 3040-3) 14 U/L 13-60 [place] MethodistAmylase pivmy7808-05-81 17:56:22* Test Item Value Reference Range Interpretation Comments Amylase (test code = 1798-8) 17 U/L 28-100 L Lab Interpretation (test code = 89646-4) Abnormal [place] MethodistLactic acid level, SEPSIS - Now and repeat 2x every 3 hours 2019-01-08 17:51:41* Test Item Value Reference Range Interpretation Comments Lactic acid (test code = 98760-1) 1.8 mmol/L 0.5-2.2 [place] MethodistPartial thromboplastin time, qffpexjce0560-18-08 17:36:52* Test Item Value Reference Range Interpretation Comments PTT (test code = 12547-5) 32.5 23.0- 36.0 sec PTT therapeutic range for unfractionated heparin is61.0-112.0 seconds which corresponds to Anti-Xa0.3-0.7 U/ml. [place] MethodistProthrombin time with TII7748-89-85 17:36:12* Test Item Value Reference Range Interpretation Comments Prothrombin time (test code = 5902-2) 13.7 11.5- 14.5 sec INR (test code = 24487-9) 1.1 Th e International Normalized Ratio (INR) is a therapeutic monitoring tool for patients who are stable on oral anticoagulant therapy. An INR of 2.0-3.0 is suggested for deep vein thrombosis/pulmonary embolism. [place] MishaistSurgical pathology yilxnke6102-36-45 16:23:08* Test Item Value Reference Range Interpretation Comments Case number (test code = 0100298) [id number] Surgical pathology report (test code = 2255) See link below for PDF Lab Report Result status (test code = 1071627) This is Final Report for [id number] 8265-5 [place] MethodistHemoglobin & fbgaupvgzo0621-79-20 05:44:08* Test Item Value Reference Range Interpretation Comments HGB (test code = 718-7) 8.2 g/dL 12-16 L HCT (test code = 4544-3) 25.3 % 37-47 L Lab Interpretation (test code = 62693-6) Abnormal [facility] PftkkminhGgpfyg1567-19-23 07:58:08Julio CMesha flanagan 12/29/2018 7:59 AMAirwayDate/Time: 12/29/2018 7:27 AMPerformed by: Leonid Mittaluthorized by: Saleem Watts MD Location: ORUrgency: ElectiveDifficult Airway: No Anesthesiologist: Carlos Cantrell MDResident/FISH CAKE MAKER/AA: Cassandra Terry CRNAOther Anesthesia Staff: Laron MittalaPerformed by: other anesthesia staffPreoxygenated with 100% O2: Yes Mask Ventilation: Not attemptedFinal Airway Type: Endotracheal airwayFinal Endotracheal Airway: ETTTechnique Used: Direct laryngoscopyDevices/Methods Used in Placement: Intubating styletInsertion Site: OralBlade Type: MillerLaryngoscope Blade/Videolaryngoscope Blade Size: 2ETT Size (mm): 7.0Measured from: LipsETT to Lips (cm): 21Placement Verified by: CO2 detection and direct visualization Laryngoscopic view: Grade I - full view of glottisRapid Sequence Induction (RSI): Yes Number of Attempts at Approach: 1 Smooth IV RSI induction. Cricoid pressure applied. DLx 1 by SRNA, grade 1 view. ETT passed atraumatically through cords, cuffed to seal. No damage to lips, teeth, or gums. EtCO2 confirmed on anesthesia machine. Cricoid pressure released.[facility] MethodistVitamin B1 level, whole vvhmj5885-99-06 08:42:18* Test Item Value Reference Range Interpretation Comments Vitamin B1 (test code = 40528-2) 89 nmol/L 70-180 INTERPRETIVE INFORMATION: Vitamin B1, Whole BloodThis assay measures the concentration of thiamine diphosphate (TDP), the primary active form of vitamin B1. Approximately 90 percent of vitamin B1 present in whole blood is TDP. Thiamine and thiamine monophosphate, which comprise the remaining 10 percent, are not measured.Test developed and characteristics determined by [facility]. See Compliance Statement B: [facility]/CSPerformed by [facility],[address] [place] [address] llk.[facility], Jose Rodrigues MD, Lab. Director [place] Mishaunm carrie tingley hospitalVitamin A level, plasma or nypin3260-93-23 08:05:25* Test Item Value Reference Range Interpretation Comments Vitamin A (retinol) (test code = 2923-1) 0.35 mg/L 0.3-1.2 Retinyl palmitate (test code = 23232-5) <0.02 0-0.1 Vitamin A interpretation (test code = 49751-5) Normal Test developed and characteristics determined by [facility]. See Compliance Statement B: [facility]/CSPerformed by [facility],[address] [place] [address] wdo.[employer], Jose Rodrigues MD, Lab. Director Ron[facility] ZhaoZinc level, ypgrt2878-28-92 14:08:09* Test Item Value Reference Range Interpretation Comments Zinc (test code = 66635-4) 78.8 ug/dL 60-120 I NTERPRETIVE INFORMATION: Zinc, Serum or PlasmaElevated results may be due to skin or collection-related contamination, including the use of a noncertified metal-free collection/transport tube. If contamination concerns exist due to elevated levels of serum/plasma zinc, confirmation with a second specimen collected in a certified metal-free tube is recommended.Circulating zinc concentrations are dep endent on albumin status and are depressed with malnutrition. Zinc may also be lowered with infection, inflammation, stress, oral contraceptives, and . Zinc may be elevated with zinc supplementation or fasting. Elevated zinc concentrations may interfere with copper absorption. Test developed and characteristics determined by [facility]. See Compliance Statement B: [facility]/CSPerformed by [facility],[address] [place] [address] jrf.[employer], Jose Rodrigues MD, Lab. Director Ronnie ZhaoCopper level, pkatc4695-98-33 14:08:09* Test Item Value Reference Range Interpretation Comments Copper (test code = 2939-7) 112.2 ug/dL 80-155 INTERPRETIVE INFORMATION: Copper, Serum or PlasmaElevated results may be due to skin or collection-related contamination, including the use of a noncertified metal-free collection/transport tube. If contamination concerns exist due to elevated levels of serum/plasma copper, confirmation with a second specimen collected in a certified metal-free tube is recommended.Serum copper may be elevated with inf ection, inflammation, stress, and copper supplementation. In females, elevated copper may also be caused by oral contraceptives and (concentrations may be elevated up to 3 times normal during the third trimester).Test developed and characteristics determined by [facility]. See Compliance Statement B: [facility]/CSPerformed by [facility],[address] [place] [address] mkz.[employer], Jose Rodrigues MD, Lab. Director [facility] ZhaoECG 12 uufr8757-29-07 16:46:44* Test Item Value Reference Range Interpretation Comments Ventricular rate (test code = 253) 57 Atrial rate (test code = 255) 57 IA interval (test code = 266) 150 QRSD interval (test code = 260) 84 QT interval (test code = 264) 420 QTC interval (test code = 265) 408 P axis 1 (test code = 267) 73 QRS axis 1 (test code = 268) 76 T wave axis (test code = 270) 66 EKG impression (test code = 273) Sinus bradycardia wit h sinus arrhythmia-Low voltage QRS-Borderline ECG-No previous ECGs available- [place] MethodistVitamin D 25 hydroxy vyxmh6994-67-64 15:32:33* Test Item Value Reference Range Interpretation Comments Vitamin D, 25-hydroxy (test code = 1989-3) 31.3 ng/mL 30-150 This assay reports the sum of 25-hydroxy vitamin D3 and 25-hydroxy vitamin D2. Reference range:0-17 years:Deficiency: less than 20ng/mLOptimum level: greater than or equal to 20 ng/mL.18 years and older:Deficiency: less than 20ng/mLInsufficiency: 20-29 ng/mLOptimum Level: 30-80 ng/mLThe assay reportable range is 3.4 155.9 ng/mL. Levels higher than 150 ng/mL may be associated with toxicity.If toxicity is clinically suspected and the reported result is >155.9 ng/mL,contact lab for alternative methods to obtain a definitive level.If separate quantitation of 25-hydroxy vitamin D3 and 25-hydroxy vitamin D2 is needed, please contact lab for alternative methods. [facility] MethodistFolate zxydc3057-24-58 13:27:11* Test Item Value Reference Range Interpretation Comments Folate (test code = 2284-8) 14.5 ng/mL 4.8-24.2 [place] MishaistVitamin B12 rmgun2903-51-55 13:24:45* Test Item Value Reference Range Interpretation Comments Vitamin B12 (test code = 2132-9) 764 pg/mL 211-946 Significant overlap exists between normal and deficiency states.However, most patients with deficiencies will have Serum B12 <200 pg/mL. Ronnie CabralistT4, eekb3819-42-06 13:18:26* Test Item Value Reference Range Interpretation Comments T4, free (test code = 3024-7) 1.2 ng/dL 0.9-1.7 [place] MishaistThyroid stimulating dbobqtk0777-68-46 13:18:26* Test Item Value Reference Range Interpretation Comments TSH (test code = 3016-3) 2.29 0.27- 4.20 uIU/mL [place] MishaistFerritin chdeu0502-12-08 13:18:25* Test Item Value Reference Range Interpretation Comments Ferritin level (test code = 2276-4) 157 ng/mL 13-150 H Lab Interpretation (test code = 67137-0) Abnormal [place] MishaistParathyroid fqdyjtw9509-70-34 13:16:11* Test Item Value Reference Range Interpretation Comments PTH (test code = 2731-8) 72 pg/mL 15-65 H Lab Interpretation (test code = 17918-4) Abnormal [place] MethodistLipid rwtxv9578-57-48 13:14:34* Test Item Value Reference Range Interpretation Comments Cholesterol (test code = 2093-3) 148 mg/dL <200 Triglycerides (test code = 2571-8) 62 mg/dL <150 HDL cholesterol (test code = 2085-9) 65 mg/dL >40 LDL cholesterol (test code = 9-1) 79 mg/dL <100 Result obtained by direct LDL measurement Lipid panel interpretation (test code = 81936-1) SeeBelow Total Cholesterol (mg/dL) <200 Desirable 200-239 Borderline-high >=240 High Triglycerides (mg/dL) <150 Normal 150-199 Borderline-high 200-499 High >=500 Very high HDL Cholesterol (mg/dL) <40 Low (male) <40 Low (female) LDL Cholesterol (mg/dL) <100 Optimal 100-129 Near or above optimal 130-159 Borderline-high 160-189 High >=190 Very high Risk Catergories that modify LDL goals.Risk Catergories LDL goal (mg/dL)CHD and CHD risk equivalent <100 (10-year risk >20%)Multiple (2+) risk factors <130 (10-year risk =<20%)0-1 risk factors <160 (<10-year risk) Defining levels of lipids in metabolic syndromeTriglycerides >=150 mg/dLHDL Cholesterol Men <40 mg/dL Women <40 mg/dL Non-HDL cholesterol is a second target for therapy in personswith high triglycerides (>=200 mg/dL) [place] CheondoismTotal iron binding ivmyoprv3440-06-28 13:14:34* Test Item Value Reference Range Interpretation Comments Iron level (test code = 2498-4) 138 ug/dL 37-145 Iron binding capacity (test code = 2500-7) 262 ug/dL 200-400 % Saturation (test code = 2502-3) 52.7 % 15-38 H Lab Interpretation (test code = 96870-6) Abnormal [place] RwzevroxgH84602-72-31 13:14:04* Test Item Value Reference Range Interpretation Comments T3 (test code = 3053-6) 82 ng/dL 80-200 [place] MethodistInsulin, iyaytb5544-02-87 13:14:04* Test Item Value Reference Range Interpretation Comments Insulin, random (test code = 09745-0) 3.4 mU/L The reference interval for fasting insulin is 2.6-24.9 mU/L [place] CheondoismC-reactive sbaeasg8736-47-25 13:13:39* Test Item Value Reference Range Interpretation Comments CRP (test code = 1988-) <0.30 0-0.5 [place] MethodistHemoglobin Q4w1890-88-52 12:47:49* Test Item Value Reference Range Interpretation Comments Hemoglobin A1C (test code = 99604-1) 4.6 % 4-5.6 HbA1c cutoffs for diagnosing diabetes:4.0% - 5.6% = normal5.7% - 6.4% = increased risk for diabetes (prediabetes)9>=6.5% = hbteymez2Nmdxb for glycemic control (ADA 2016)< 7.0% Target for non adults with diabetes. More or less stringent targets may be appropriate for individual patients. <7.5% Target for Children and adolescents with type 1 diabetes. [place] MethodistUrinalysis, automated with yymximxgmz0772-21-94 12:47:05* Test Item Value Reference Range Interpretation Comments Color, UA (test code = 5778-6) Yellow Appearance, UA (test code = 5767-9) Clear Specific gravity, UA (test code = 5811-5) 1.023 1.001-1.035 pH, UA (test code = 5803-2) 5.0 5.0-8.5 Protein, UA (test code = 44733-8) Negative Negative Glucose, UA (test code = 66519-6) Negative Negative Ketones, UA (test code = 2514-8) Negative Negative Bilirubin, UA (test code = 5770-3) Negative Negative Blood, UA (test code = 5794-3) Negative Negative Nitrite, UA (test code = 5802-4) Negative Negative Urobilinogen, UA (test code = 09659-5) 2.0 <2.0 A Leukocyte esterase, UA (test code = 5799-2) Negative Negative Epithelial cells, UA (test code = 5787-7) 1 /HPF WBC, UA (test code = 5821-4) 1 0- 4 /HPF RBC, UA (test code = 95083-9) 2 0- 5 /HPF Bacteria, UA (test code = 10862-9) Few None seen Yeast, UA (test code = 39583-1) None seen Yeast with pseudohyphae, UA (test code = 44476-8) None seen Lab Interpretation (test code = 37135-4) Abnormal [place] MethodistStool Occult Qqflz4133-04-91 11:46:00* Test Item Value Reference Range Interpretation Comments Stool Occult Blood (test code = 2335-8) POSITIVE NEGATIVE [facility]White Blood Boqog5328-33-11 11:41:00* Test Item Value Reference Range Interpretation Comments White Blood Count (test code = 6690-2) 4.37 4.8-10.8 [facility]ownRed Blood Fwmcn6424-89-14 11:41:00* Test Item Value Reference Range Interpretation Comments Red Blood Count (test code = 789-8) 4.14 3.6-5.1 [facility] UptownHemoglobin2019-11-07 11:41:00* Test Item Value Reference Range Interpretation Comments Hemoglobin (test code = 40346-2) 13.1 12.0-16.0 [facility] UptownHematocrit2019-11-07 11:41:00* Test Item Value Reference Range Interpretation Comments Hematocrit (test code = 4544-3) 37.9 34.2-44.1 [facility] UptownMean Corpuscular Rbivpc8869-50-79 11:41:00* Test Item Value Reference Range Interpretation Comments Mean Corpuscular Volume (test code = 787-2) 91.5 81-99 [facility] UptownMean Corpuscular Bpjwwenyly3180-64-20 11:41:00* Test Item Value Reference Range Interpretation Comments Mean Corpuscular Hemoglobin (test code = 785-6) 31.6 28-32 [facility] UptownMean Corpuscular Hemoglobin Concent 2018-12-15 11:41:00* Test Item Value Reference Range Interpretation Comments Mean Corpuscular Hemoglobin Concent (test code = 786-4) 34.6 31-35 [facility] UptownRed Cell Distribution Ptlho2238-64-84 11:41:00* Test Item Value Reference Range Interpretation Comments Red Cell Distribution Width (test code = 41867-8) 11.9 11.7 -14.4 [facility] UptownPlatelet Ixikf8297-68-75 11:41:00* Test Item Value Reference Range Interpretation Comments Platelet Count (test code = 777-3) 220 140-360 [facility] UptownNeutrophils (%) (Auto)2018-12-15 11:41:00 * Test Item Value Reference Range Interpretation Comments Neutrophils (%) (Auto) (test code = 71151-4) 43.0 38.7-80.0 [facility] UptownLymphocytes (%) (Auto)2018-12-15 11:41:00 * Test Item Value Reference Range Interpretation Comments Lymphocytes (%) (Auto) (test code = 736-9) 41.9 18.0-39.1 [facility] UptownMonocytes (%) (Auto)2018-12-15 11:41:00* Test Item Value Reference Range Interpretation Comments Monocytes (%) (Auto) (test code = 5905-5) 10.5 4.4-11.3 [facility]ptownEosinophils (%) (Auto)2018-12-15 11:41:00 * Test Item Value Reference Range Interpretation Comments Eosinophils (%) (Auto) (test code = 713-8) 3.7 0.0-6.0 [facility] UptownBasophils (%) (Auto)2018-12-15 11:41:00* Test Item Value Reference Range Interpretation Comments Basophils (%) (Auto) (test code = 706-2) 0.7 0.0-1.0 [facility] UptownIM GRANULOCYTES %2018-12-15 11:41:00* Test Item Value Reference Range Interpretation Comments IM GRANULOCYTES % (test code = IM GRANULOCYTES %) 0.2 0.0- 1.0 [facility] UptownNeutrophils # (Auto)2018-12-15 11:41:00* Test Item Value Reference Range Interpretation Comments Neutrophils # (Auto) (test code = 751-8) 1.9 2.1-6.9 [facility] UptownLymphocytes # (Auto)2018-12-15 11:41:00* Test Item Value Reference Range Interpretation Comments Lymphocytes # (Auto) (test code = 05003-1) 1.8 1.0-3.2 [facility] UptownMonocytes # (Auto)2018-12-15 11:41:00* Test Item Value Reference Range Interpretation Comments Monocytes # (Auto) (test code = 742-7) 0.5 0.2-0.8 [facility]ptownEosinophils # (Auto)2018-12-15 11:41:00* Test Item Value Reference Range Interpretation Comments Eosinophils # (Auto) (test code = 711-2) 0.2 0.0-0.4 [facility]ptownBasophils # (Auto)2018-12-15 11:41:00* Test Item Value Reference Range Interpretation Comments Basophils # (Auto) (test code = 704-7) 0.0 0.0-0.1 [facility] UptownAbsolute Immature Granulocyte (auto 2018-12-15 11:41:00* Test Item Value Reference Range Interpretation Comments Absolute Immature Granulocyte (auto (maggie t code = Absolute Immature Granulocyte (auto) 0.01 0-0.1 [facility] UptownUrine BDE2641-62-57 11:35:00* Test Item Value Reference Range Interpretation Comments Urine WBC (test code = 5821-4) 21-50 0-5 [facility] UptownUrine OTD5534-19-46 11:35:00* Test Item Value Reference Range Interpretation Comments Urine RBC (test code = 39999-1) 6-10 0-5 [facility] UptownUrine Gqbeendg8068-74-53 11:35:00* Test Item Value Reference Range Interpretation Comments Urine Bacteria (test code = 25696-5) FEW NONE [facility] UptownUrine Epithelial Kgoqo2159-22-70 11:35:00 * Test Item Value Reference Range Interpretation Comments Urine Epithelial Cells (test code = 18788-6) FEW NONE [facility] UptownUrine Iuqfj9411-39-48 11:34:00* Test Item Value Reference Range Interpretation Comments Urine Color (test code = 5778-6) YELLOW YELLOW [facility]ownUrine Tegsieq4094-25-54 11:34:00* Test Item Value Reference Range Interpretation Comments Urine Clarity (test code = 18489-5) CLEAR CLEAR [facility]ownUrine Specific Jcrgzpk3751-90-65 11:34:00 * Test Item Value Reference Range Interpretation Comments Urine Specific [place] (test code = 5811-5) >=1.030 1.010-1.02 5 [facility]ownUrine hK2253-03-56 11:34:00* Test Item Value Reference Range Interpretation Comments Urine pH (test code = 41750-1) 6 5-7 [facility]own[facility]rine Leukocyte Muissepu1359-41-76 11:34:00* Test Item Value Reference Range Interpretation Comments Urine Leukocyte Esterase (test code = 35175-6) NEGATIVE NEGATIV E [facility]ownUrine Chpkuci8768-37-99 11:34:00* Test Item Value Reference Range Interpretation Comments Urine Nitrite (test code = 38157-2) NEGATIVE NEGATIVE [facility]ownUrine Mnxwysu3201-02-57 11:34:00* Test Item Value Reference Range Interpretation Comments Urine Protein (test code = 68269-7) 1+ NEGATIVE [facility] Glucose (UA)2018-12-15 11:34:00* Test Item Value Reference Range Interpretation Comments Urine Glucose (UA) (test code = 19406-1) NEGATIVE NEGATIVE [facility]own[facility]rine Bnjlwno9971-49-63 11:34:00* Test Item Value Reference Range Interpretation Comments Urine Ketones (test code = 05014-1) NEGATIVE NEGATIVE [facility] Alzxumuwpihn4988-72-00 11:34:00* Test Item Value Reference Range Interpretation Comments Urine Urobilinogen (test code = 05169-3) 1 0.2-1 [facility] Ncdjtjtti6536-73-62 11:34:00* Test Item Value Reference Range Interpretation Comments Urine Bilirubin (test code = 1977-8) NEGATIVE NEGATIVE [facility] Gyxqy7579-24-24 11:34:00* Test Item Value Reference Range Interpretation Comments Urine Blood (test code = 21334-4) 3+ NEGATIVE [facility] Myfex0816-40-80 11:05:00* Test Item Value Reference Range Interpretation Comments Sodium Level (test code = 2951-2) 139 136-145 [facility]ownPotassium Yjvyb3648-36-74 11:05:00* Test Item Value Reference Range Interpretation Comments Potassium Level (test code = 2823-3) 4.0 3.5-5.1 [facility]ownChloride Nmmgd3758-76-71 11:05:00* Test Item Value Reference Range Interpretation Comments Chloride Level (test code = 2075-0) 104 98-107 [facility]ptownCarbon Dioxide Aaztm4323-11-71 11:05:00* Test Item Value Reference Range Interpretation Comments Carbon Dioxide Level (test code = 2028-9) 26 22-29 [facility] UptownAnion Lek7127-29-91 11:05:00* Test Item Value Reference Range Interpretation Comments Anion Gap (test code = 12569-0) 13.0 8-16 [facility] UptownBlood Urea Vyyqtnxt4593-29-62 11:05:00* Test Item Value Reference Range Interpretation Comments Blood Urea Nitrogen (test code = 3094-0) 9 7-26 [facility]ptownCreatinine2019-11-07 11:05:00* Test Item Value Reference Range Interpretation Comments Creatinine (test code = 2160-0) 0.83 0.57-1.11 [facility]ptownBUN/Creatinine Kaaje1169-32-80 11:05:00* Test Item Value Reference Range Interpretation Comments BUN/Creatinine Ratio (test code = 3097-3) 11 6-25 [facility] UptownEstimat Glomerular Filtration Rate 2018-12-15 11:05:00* Test Item Value Reference Range Interpretation Comments Estimat Glomerular Filtration Rate (test code = 746676683) > 60 >60 Ranges were taken from the National Kidney Disease Education Program and the [facility] Kidney Foundation literature.Reference ranges:60 or greater: Omndat13-96 ( for 3 consecutive months): Chronic kidney disease 15 or less: Kidney failureBaylor Scott & [facility] Center – UptownGlucose Zdmwt2453-81-55 11:05:00* Test Item Value Reference Range Interpretation Comments Glucose Level (test code = WIR4898) 94 74-118 [facility] UptownCalcium Muaon9205-06-65 11:05:00* Test Item Value Reference Range Interpretation Comments Calcium Level (test code = 52387-4) 9.0 8.4-10.2 [facility] UptownTotal Ogapysfyl1652-64-50 11:05:00* Test Item Value Reference Range Interpretation Comments Total Bilirubin (test code = 1975-2) 0.8 0.2-1.2 [facility] UptownAspartate Amino Transf (AST/SGOT) 2018-12-15 11:05:00* Test Item Value Reference Range Interpretation Comments Aspartate Amino Transf (AST/SGOT) (test code = Aspartate Amino Transf (AST/SGOT)) 19 5-34 [facility] UptownAlanine Aminotransferase (ALT/SGPT) 2018-12-15 11:05:00* Test Item Value Reference Range Interpretation Comments Alanine Aminotransferase (ALT/SGPT) (test code = 1742-6) 8 0-55 [facility] UptownTotal Klzubnm7849-67-84 11:05:00* Test Item Value Reference Range Interpretation Comments Total Protein (test code = 2885-2) 7.1 6.5-8.1 [facility] UptownAlbumin2019-11-07 11:05:00* Test Item Value Reference Range Interpretation Comments Albumin (test code = 1751-7) 4.0 3.5-5.0 [facility]ptownGlobulin2019-11-07 11:05:00* Test Item Value Reference Range Interpretation Comments Globulin (test code = 81135-2) 3.1 2.3-3.5 [facility]ptownAlbumin/Globulin Gcpid4323-26-76 11:05:00 * Test Item Value Reference Range Interpretation Comments Albumin/Globulin Ratio (test code = 1759-0) 1.3 0.8-2.0 [facility]ptownAlkaline Wsguqtegcxp8778-47-52 11:05:00* Test Item Value Reference Range Interpretation Comments Alkaline Phosphatase (test code = 6768-6) 57 40-150 [facility] UptownCreatine Hhstic8274-08-26 11:05:00* Test Item Value Reference Range Interpretation Comments Creatine Kinase (test code = 2157-6) 43 29-168 [facility]ptownCreatine Kinase FV1822-53-71 11:05:00* Test Item Value Reference Range Interpretation Comments Creatine Kinase MB (test code = 88626-3) < 1.00 0-4.3 [facility] P4113-39-21 11:05:00* Test Item Value Reference Range Interpretation Comments Troponin I (test code = 48284-3) < 0.05 0.0-0.40 [facility] CenterCT [facility]PEL WITH FVVADTMC-JCDE8743-67-22 20:14:00 [place] [address] Patient Name: LEISA ORTIZ MR #: [id number] : 1980 Age/Sex: 38/F Req #: [id number] Adm Physician: Ordered by: RANULFO ORELLANA DO Report #: [id number] Location: [facility] Room/Bed: Procedure: 102 2-0006 HOPD/CT ABD/PEL WITH CONTRAST-HOPD Exam Date: 11/29/18 Exam Time: 2006 ST ATUS: Signed EXAM: CT Abdomen and Pelvis WITH contrast INDICATION: Abdomi nal pain. History of stomach ulcer. History of gastric bypass. Hysterectomy. [id number] COMPARISON: 10/30/2018 TECHNIQUE: Abdomen and pelvis we re scanned utilizing a multidetector helical scanner from the lung base to the pubic symphysis after administration of IV contrast. Coronal and sagittal ref ormations were obtained. Routine protocol was performed. Scan was performed wh en during portal venous phase. IV CONTRAST: 100 mL of Isovue 370 ORAL CONTRAST: Water COMPLICATIONS: None RADIATION DOSE: Total DLP: 237 mGy*cm Estimated effective dose: (DLP x 0.015 x s ize factor) mSv CTDIvol has been reviewed. It is below the limits set by the Radiation Protocol Committee (RPC). Dose modulation, iterative nazanin nstruction, and/or weight based adjustment of the mA/kV was utilized to reduce the radiation dose to as low as reasonably achievable. FINDINGS: L OWER THORAX: Unremarkable. HEPATOBILIARY: No focal hepatic lesions. No in tra or extrahepatic biliary ductal dilation. GALLBLADDER: Cholecystectomy clips No wall thickening. SPLEEN: No splenomegaly. PANCREAS: No focal masses or ductal dilatation. ADRENALS: No adrenal nodules. KIDNEYS/U RETERS: 4 mm nonobstructing calculus in the proximal right ureter. No other re nal calculi. Previously seen 4-5 mm calcific density anterior to the right pso as muscle (no longer seen No significant perinephric stranding. No hydroneph rosis. No contour abnormalities. PELVIC ORGANS/BLADDER: Bladder is decomp ressed but grossly unremarkable. Uterus is absent. No adnexal masses. PER ITONEUM/RETROPERITONEUM: No free air or fluid. LYMPH NODES: No intra-abdomi nal,retroperitoneal, pelvic or inguinal lymphadenopathy. VESSELS: Unremar kable for noncontrast exam. GI TRACT: No bowel dilation or evidence of obst ruction. Postoperative changes in the stomach and proximal small bowel, consis tent with prior gastric bypass surgery. Moderate amount of retained stool in t he colon. Appendix is identified and normal in caliber. BONES AND SOFT TI SSUES: No aggressive lytic lesions. Soft tissues are grossly unremarkable. IMPRESSION: 1. Previously seen 4-5 mm calcific density anterior to the right psoas muscle is no longer seen. 4 mm nonobstructing calculus in the pr oximal right ureter 2. No bowel dilation or evidence of obstruction. Modera te retained stool in the colon. Postoperative change consistent with patient's history of gastric bypass. Signed by: Dr. Mimi Camacho M.D. on 2018 8:25 PM Dictated By: MIMI CAMACHO MD, MD 24 Transcribed By: LOUIE on 11/29/182024 COPY TO: RANULFO ORELLANA DO ABDOMEN-1VIEW (KUB)2018-11-04 10:24:00 [place] [address] Patient Name: LEISA ORTIZ MR #: [id number] DO B: 1980 Age/Sex: 38/F 858 Req #: [id number] Adm Physician: Ordered by: FELICIANO WEBB MD Report #: [id number] Location: OR Room/Bed: Procedure: 0 927-0022 DX/ABDOMEN-1VIEW (KUB) Exam Date: Exam Christian e: REPORT STATUS: Signed Abdome n, 1 view. History: Preop, kidney stones. Comparison: CT 10/30/2018. Findings: Air is scattered throughout nondilated small and large bowel. A 4 mm calcification is projected over the upper pole of the right kidney. Cho lecystectomy clips are present. A 4 mm calcification is also seen below the ri ght L3 transverse process. There are no masses. The osseous structures are int act. IMPRESSION: Non-specific bowel gas pattern. Right-sided calcifica tions are similar in appearance to prior CT. Signed by: Ranulfo Casper on 11/04/2018 10:27 AM Dictated By: RANULFO CASPER MD 1027 Transcribed By: LOUIE on 11/04/18 1027 COPY TO: FELICIANO WEBB MD CT ABD/PEL WO JXYDPIEE-TLIL4778-71-22 19:56:00 [place] [address] Patient Name: LEISA ORTIZ MR #: [id number] : 1980 Age/Sex: 38/F Req #: [id number] Adm Physician: Ordered by: JENNIFER EMANUEL MD Report #: [id number] Location: [facility] Room/Bed: Procedure: [id number] HOPD/CT ABD/PEL WO CONTRAST-HOPD Exam Date: 10/30/18 Exam Time: 1942 REPORT S TATUS: Signed EXAMINATION: CT of the abdomen and pelvis without contrast. TECHNIQUE: Spiral CT images of the abdomen and pelvis were performed from the lung bases to the lesser trochanters. No intravenous contrast was given per renal stone protocol. Coronal and sagittal reformatted images were obtained. COMPARISON: Abdominal ultrasound 06/15/2018 CLINICAL HISTORY:Abdominal pain and nausea DISCUSSION: ABSENCE OF INTRAVENOUS CONTRAST DECREASES S ENSITIVITY FOR DETECTION OF FOCAL LESIONS AND VASCULAR PATHOLOGY. ABDOMEN /PELVIS: LOWER THORAX: Unremarkable. HEPATOBILIARY: No focal hepatic lesions. No intra or extrahepatic biliary ductal dilation. GALLBLADDER: Cholecystectomy clips SPLEEN: No splenomegaly. PANCREAS: No focal masses or ductal dilatation. ADRENALS: No adrenal nodules. KIDNEYS/UR ETERS: 4 mm nonobstructing calculus in the right superior pole (series 2, imag e 30). No other renal calculi. 4-5 mm calcific density anterior to the right p soas muscle (series 2, image 41). No significant perinephric stranding. No h ydronephrosis. No contour abnormalities. PELVIC ORGANS/BLADDER: Bladder i s decompressed but grossly unremarkable. Uterus is absent. No adnexal masses. PERITONEUM/RETROPERITONEUM: No free air or fluid. LYMPH NODES: No intr a-abdominal,retroperitoneal, pelvic or inguinal lymphadenopathy. VESSELS: Unremarkable for noncontrast exam. GI TRACT: No bowel dilation or evidence of obstruction. Postoperative changes in the stomach and proximal small bowel, consistent with prior gastric bypass surgery. Moderate amount of retained st ool in the colon. Appendix is identified and normal in caliber. BONES AND SOFT TISSUES: No aggressive lytic lesions. Soft tissues are grossly unremarka ble. IMPRESSION: 1. 4-5 mm calcific density anterior to the right psoas muscle is indeterminate. This may represent a ureteral calculus, however , no right hydronephrosis or evidence of obstruction is noted. Alternatively, this may represent a gonadal vein phlebolith.No other renal, ureteral or bladd er calculi. Correlate for hematuria 2. 4 mm nonobstructing calculus in t he right superior pole. 3. No bowel dilation or evidence of obstruction. Mo derate retained stool in the colon. Signed by: Randal Blanca on 10/30/2018 8:03 PM Dictated By: DIMITRI GUZMÁN MD Electronically Sig moses By: DIMITRI GUZMÁN MD on 10/30/182002 Transcribed By: LOUIE on 10/30/182002 COPY TO: JENNIFER EMANUEL MD Stool Pbvemjjfalzk5751-84-48 22:20:00* Test Item Value Reference Range Interpretation Comments Stool Calprotectin (test code = 74090-2) 110 0-120 Concentration Interpretation Follow-Up<16 - 50 ug/g Normal None>50 -120 ug/g Borderline Re-evaluate in 4-6 weeks >120 ug/g Abnormal Repeat as clinically indicatedPerformed at: - [facility] [id number] Director: Jacky Mauricio MD, Phone: [phone] [facility] Folate Ogxxywfyav6988-61-78 22:00:00* Test Item Value Reference Range Interpretation Comments RBC Folate Hemolysate (test code = 2282-2) 367.9 Not Estab. [facility] UptownHematocrit2019-09-12 22:00:00* Test Item Value Reference Range Interpretation Comments Hematocrit (test code = 4544-3) 37.9 34.0-46.6 [facility] Folate Hgadbmxmid0488-42-77 22:00:00 * Test Item Value Reference Range Interpretation Comments RBC Folate Hemolysate (test code = 2283-0) 971 >498 Performed at: - [facility] [address] [id number] Director: Shai Simms MD, Phone: [phone] Regional Medical Centertool Lactoferrin (LAB)2018-10-20 13:44:00* Test Item Value Reference Range Interpretation Comments Stool Lactoferrin (LAB) (test code = 53990-7) POSITIVE NEGATIVE Testing on stool aspirate specimens is outside fulling machine operator claims since specime n type not validated on this assay.[facility] UptownLactic Acid Wqran1631-95-40 07:06:00* Test Item Value Reference Range Interpretation Comments Lactic Acid Level (test code = Lactic Acid Level) 6.6 4.5- 19.8 [facility] UptownVitamin B12 Cjtrx2803-48-92 16:19:00* Test Item Value Reference Range Interpretation Comments Vitamin B12 Level (test code = 17298-2) 1638 213-816 [facility] UptownFerritin2019-09-11 16:09:00* Test Item Value Reference Range Interpretation Comments Ferritin (test code = 2276-4) 58.01 4.63-204.00 [facility] UptownIron Edbqc9987-83-20 15:44:00* Test Item Value Reference Range Interpretation Comments Iron Level (test code = 2498-4) 69 50-170 [facility] UptownTotal Iron Binding Zezjwawh0626-73-68 15:44:00* Test Item Value Reference Range Interpretation Comments Total Iron Binding Capacity (test code = 2500-7) 293 261-4 78 [facility] UptownPercent Iron Vjnayswaln4852-13-62 15:44:00* Test Item Value Reference Range Interpretation Comments Percent Iron Saturation (test code = 2502-3) 24 15-50 [facility] UptownTransferrin2019-09-11 15:44:00* Test Item Value Reference Range Interpretation Comments Transferrin (test code = 3034-6) 209 180-382 [facility] UptownLipase2019-09-11 10:46:00* Test Item Value Reference Range Interpretation Comments Lipase (test code = 3040-3) 18 8-78 [facility] UptownUrine Amorphous Ehlibpsp4915-69-06 09:45:00* Test Item Value Reference Range Interpretation Comments Urine Amorphous Sediment (test code = 8246-1) FEW FEW [facility] UptownUrine Sadey0664-84-92 09:45:00* Test Item Value Reference Range Interpretation Comments Urine Mucus (test code = 8247-9) MANY RARE [facility] UptownProthrombin Qbmf4799-40-90 09:22:00* Test Item Value Reference Range Interpretation Comments Prothrombin Time (test code = 5902-2) 13.5 11.9-14.5 [facility] UptownProthromb Time International Ratio 2018-10-19 09:22:00* Test Item Value Reference Range Interpretation Comments Prothromb Time International Ratio (test code = 6301-6) 0.98 Oral Anticoagulant Therapy INR Values:1. Low Intensity Therapy 1.5 - 2.02 . Moderate Intensity Therapy 2.0 - 3.03. High Intensity Therapy(1) 2.5 - 3. 54. High Intensity Therapy(2) 3.0 - 4.05. Panic Value INR > 5.0 [facility] UptownActivated Partial Thromboplast Time 2018-10-19 09:22:00* Test Item Value Reference Range Interpretation Comments Activated Partial Thromboplast Time (test code = 76683-6) 37.1 23.8-35.5 [facility] UptownHuman Chorionic Gonadotropin, Qual 2018-10-19 09:21:00* Test Item Value Reference Range Interpretation Comments Human Chorionic Gonadotropin, Qual (test code = 2118-8) NEGATIVE NEGATIVE [facility] UptownUrine Ahzq8633-85-02 18:58:00* Test Item Value Reference Range Interpretation Comments Urine Test (test code = 2106-3) NEGATIVE NEGATIVE [facility] UptownUS ABDOMEN REAPOFVN6421-64-43 09:51:00 [place] [address] Patient Name: LEISA ORTIZ MR #: [id number] : 1980 Age/Sex: 38/F Req #: [id number] Adm Physician: Ordered by: BRIE JAMES MD Report #: [id number] Location: US Room/Bed: Procedure: 9301-1624 U S/US ABDOMEN COMPLETE Exam Date: 06/15/18 Exam Time: 925 REPORT STATUS: Signed EXAM: US ABDOMEN COMPLETE INDICATION: Left upper quadrant pain. COMPARI SON: None TECHNIQUE: Transverse and longitudinal lora scale and color dopp ler sonographic images of the abdomen were obtained. FINDINGS: LIVE R 11.6 cm in the right midclavicular line. Normal echogenicity of the liver with normal contour, no masses. SPLEEN 9.7 cm in maximum diameter. Norm al echogenicity, no masses. GALLBLADDER Status post cholecystectomy. BILE DUCTS No intrahepatic biliary dilation. Common bile duct measures 0.6 cm. PANCREAS: Visualized portions are normal. RIGHT KIDNEY: 11.2 cm Echogenicity: Normal Collecting System: No hydronephrosis Stones: None Cyst/Mass: None LEFT KIDNEY: 10.7 cm Echogenicity: Normal Collecting Sy stem: No hydronephrosis Stones: None Cyst/Mass: None VESSELS: Aorta : Visualized portions are within normal size limits Inferior Vena Cava: Visual ized portions are normal Main Portal Vein: 1.3 cm, normal size with hepatopeta l flow. FREE FLUID: None IMPRESSION: Mildly prominent common bile du ct, likely reflecting post cholecystectomy reservoir effect. Signed by: Eve Hoffman MD on 06/15/2018 9:56 AM Dictated By: DC HOFFMAN MD Electro nically Signed By: DC HOFFMAN MD on 06/15/18955 Transcribed By: LOUIE on 955 COPY TO: BRIE JAMES MD
--- OUTSIDE RECORDS SUMMARY | 2019-06-29 10:36 | XMS REPORT | Clinical Summary ---
Author Author [facility] Organization [facility] Address Unknown Phone Unavailable Care Team Providers Care Fourth Hand Name Role Phone Jama Vasquez PCP Allergies Comments Active Allergy Reactions Severity Noted Date Chest pain Tramadol Other (See High 12/12/2018 Comments) Chest pain Acetaminophen-Codeine Other (See High 12/13/19 Comments) Medications End Date Status Medication Sig Dispensed Refills Start Date Active sucralfate (CARAFATE) 1 Take 1 g by 0 gram tablet mouth 4 9 (four) times a day. Active ondansetron (ZOFRAN) 4 MG Take 1 tablet 20 tablet 0 tablet (4 mg total) 9 by mouth every 8 (eight) hours as needed for nausea or vomiting. 01/04/2019 Discontinued pantoprazole (PROTONIX) Take 40 mg by 0 40 MG EC tablet mouth 2 (two) 9 times a day. 12/31/2018 Discontinued (Stop Taking at Discharge) metoclopramide (REGLAN) Take 10 mg by 0 10 MG tablet mouth as needed. 01/04/2019 Discontinued (Stop Taking at Discharge) ondansetron (ZOFRAN) 8 MG Take 8 mg by 0 / 0/201 tablet mouth every 8 9 (eight) hours. 12/25/2018 nitrofurantoin, 2 (two) times 0 macrocrystal-monohydrate, a day. 9 (MACROBID) 100 MG capsule 12/28/2018 Discontinued HYDROcodone-acetaminophen Take 1 tablet 28 tablet 0 (NORCO) 5-325 mg per by mouth 9 tabletIndications: acute every 6 (six) pain hours as needed for moderate pain for up to 7 days .Acute Pain. Max Daily Amount: 4 tablets 01/04/2019 Discontinued (Stop Taking at Discharge) HYDROcodone-acetaminophen Take 1 tablet 28 tablet 0 (NORCO) 5-325 mg per by mouth 9 tabletIndications: acute every 6 (six) pain hours as needed for moderate pain for up to 7 days .Acute Pain. Max Daily Amount: 4 tablets 12/29/2018 Discontinued (Error) omeprazole (PriLOSEC) 40 Take 1 30 capsule 5 1 MG capsule capsule (40 9 mg total) by mouth daily for 180 days. 12/29/2018 Discontinued (Error) enoxaparin (LOVENOX) 40 Inject 0.4 mL 14 Syringe 0 mg/0.4 mL syringe (40 mg total) 9 under the skin daily for 14 days. 12/29/2018 Discontinued (Error) ondansetron (ZOFRAN) 4 MG Take 1 tablet 20 tablet 0 tablet (4 mg total) 9 by mouth every 8 (eight) hours as needed for nausea or vomiting. 12/29/2018 Discontinued (Error) promethazine (PHENERGAN) Take 1 tablet 30 tablet 0 25 MG tablet (25 mg total) 9 by mouth every 6 (six) hours as needed for nausea or vomiting for up to 30 days. 06/27/2019 omeprazole (PriLOSEC) 40 Take 1 30 capsule 5 1 MG capsule capsule (40 9 mg total) by mouth daily for 180 days. 12/31/2018 Discontinued (Stop Taking at Discharge) enoxaparin (LOVENOX) 40 Inject 0.4 mL 14 Syringe 0 mg/0.4 mL syringe (40 mg total) 9 under the skin daily for 14 days. 01/28/2019 promethazine (PHENERGAN) Take 1 tablet 30 tablet 0 25 MG tablet (25 mg total) 9 by mouth every 6 (six) hours as needed for nausea or vomiting for up to 30 days. 01/05/2019 HYDROcodone-acetaminophen Take 1 tablet 30 tablet 0 (NORCO) 5-325 mg per by mouth 9 tabletIndications: acute every 6 (six) pain hours as needed for moderate pain for up to 7 days .Acute Pain. Max Daily Amount: 4 tablets 01/04/2019 Discontinued (Stop Taking at Discharge) enoxaparin (LOVENOX) 30 Inject 0.3 mL 2.1 mL 0 mg/0.3 mL syringe (30 mg total) 9 under the skin daily for 7 days. Active Problems Problem Noted Date Fever 01/09/2019 Post-operative state 01/08/2019 Hematochezia 01/04/2019 Marginal ulcer 12/29/2018 Encounters Care Team Description Date Type Specialty Mesha Zapata RN Bariatric Follow Up E-mail 04/24/2019 Documentation Weight Management Aicha Mcgrath MA Abnormal finding on imaging (Primary Dx) 03/07/2019 Orders Only General Surgery Sharifa Malcolm PA Weight loss (Primary Dx); S/P bariatric surgery; H/O ulceration; Intestinal malabsorption, unspecified type; Chronic marginal ulcer 02/06/2019 Office Visit General Surgery Shannon Camilo MD Sherman, Vadim, MD Hematochezia (Primary Dx) 01/08/2019 [facility] General Surgery - Encounter 01/10/2019 Saleem Watts MD 01/03/2019 [facility] General Surgery - Encounter 01/04/2019 01/03/2019 Intake Access Kika Presley RN 12/31/2018 Patient Quality Outreach Saleem Watts MD LAPAROSCOPIC GASTROJEJUNAL REVISION WITH HIATAL HERNIA REPAIR 12/29/2018 Surgery General Surgery Carlos Cantrell MD [place]or-[place], Miriam, NP 12/29/2018 Anesthesia General Surgery Event Saleem Watts MD Marginal ulcer; Status post gastric bypass for obesity; Gastric reflux 12/29/2018 [facility] General Surgery - Encounter 12/31/2018 Nadja Raya RN 12/29/2018 Orders Only General Surgery Nadja Raya RN 12/28/2018 Orders Only General Surgery Nadja Raya RN 12/28/2018 Orders Only General Surgery Aicha Mcgrath MA Marginal ulcer (Primary Dx); Status post gastric bypass for obesity 12/27/2018 Prep for General Surgery Surgery Saleem Watts MD Pre-op testing (Primary Dx) 12/21/2018 Pre-Admit Pre-Admission Testi ng Testing Appointment Saleem Watts MD Marginal ulcer; Status post gastric bypass for obesity; Constipation, unspecified constipation type; Pre-operative laboratory examination 12/16/2018 Pre-Admit Pre-Admission Testi ng Testing Appointment Aicha Mcgrath MA Marginal ulcer (Primary Dx); Status post gastric bypass for obesity; Constipation, unspecified constipation type; Pre-operative laboratory examination 12/14/2018 Orders Only General Surgery Nadja Raya RN Marginal ulcer (Primary Dx); Status post gastric bypass for obesity; Preop examination 12/13/2018 Orders Only General Surgery Saleem Watts MD Marginal ulcer (Primary Dx); Status post gastric bypass for obesity 12/12/2018 Office Visit General Surgery after 06/28/2018 Family History Medical History Relation Name Comments Diabetes Father Relation Name Status Comments Daughter Alive Father Alive Social History Date Tobacco Use Types Packs/Day Years Used Never Smoker Smokeless Tobacco: Never Used Drinks/Week oz/Week Comments Alcohol Use Never Alcohol Habits Answer Date Recorded How often do you have a drink containing alcohol? Never 12/12/2018 How many drinks containing alcohol do you have on No t asked a typical day when you are drinking? How often do you have six or more drinks on one Not asked occasion? Sex Assigned at Date Recorded Not on file Industry Job Start Date Occupation Not on file Not on file Not on file Travel End Travel History Travel Start No recent travel history available. Last Filed Vital Signs Reading Time Taken Comments Vital Sign 116/76 02/06/2019 12:51 PM DRIVER/[facility]CHAND[facility] Blood Pressure 61 02/06/2019 12:51 PM DRIVER/[facility]CH[facility] Pulse 36.9 C (98.4 F) 02/06/2019 12:51 PM DRIVER/[facility]CHAND[facility] Temperature 20 01/10/2019 1:04 PM DRIVER/[facility]CH[facility] Respiratory Rate 99% 02/06/2019 12:51 PM DRIVER/[facility]CHAND[facility]ER Oxygen Saturation - - Inhaled Oxygen Concentration 50.8 kg (111 lb 14.4 oz) 02/06/2019 12:51 PM DRIVER/[facility]CHAND[facility] Weight 160 cm (5' 3") 02/06/2019 12:51 PM DRIVER/MERCHANDISER Height 19.82 02/06/2019 12:51 PM DRIVER/[facility]CHAND[facility]ER Body Mass Index Plan of Treatment Health Maintenance Due Date Last Done Comments CERVICAL CANCER SCREENING 2002 INFLUENZA VACCINE 09/09/2019 Procedures Comments Procedure Name Priority Date/Time Associated Diag nosis ESTIMATED GFR Routine 01/10/2019 4:00 AM DRIVER/MERCHANDISER PHOSPHORUS LEVEL Routine 01/10/2019 4:00 AM DRIVER/MERCHANDISER MAGNESIUM LEVEL Routine 01/10/2019 4:00 AM DRIVER/[facility]CHAND[facility]ER BASIC METABOLIC PANEL Routine 01/10/2019 4:00 AM DRIVER/MERCHANDISER MANUAL DIFFERENTIAL Routine 01/10/2019 3:48 AM DRIVER/MERCHANDISER CBC WITH PLATELET AND Routine 01/10/2019 DIFFERENTIAL 3:48 AM DRIVER/MERCHAND[facility]ER OCCULT BLOOD, STOOL Routine 01/09/2019 9:20 AM DRIVER/[facility]CHAND[facility]ER MANUAL DIFFERENTIAL Routine 01/09/2019 3:22 AM DRIVER/[facility]CHAND[facility]ER ESTIMATED GFR Routine 01/09/2019 3:22 AM DRIVER/[facility]CHANDISER PHOSPHORUS LEVEL Routine 01/09/2019 3:22 AM DRIVER/MERCHAND[facility]ER MAGNESIUM LEVEL Routine 01/09/2019 3:22 AM DRIVER/MERCHANDISER BASIC METABOLIC PANEL Routine 01/09/2019 3:22 AM DRIVER/MERCHANDISER CBC WITH PLATELET AND Routine 01/09/2019 DIFFERENTIAL 3:22 AM DRIVER/MERCHANDISER LACTIC ACID LEVEL STAT 01/08/2019 10:34 PM DRIVER/[facility]CHAND[facility]ER HEPATIC FUNCTION PANEL STAT 01/08/2019 10:34 PM DRIVER/MERCHANDISER CT CHEST W CONTRAST STAT 01/08/2019 ABDOMEN W CONTRAST PELVIS 8:56 PM DRIVER/MERCHANDISER W CONTRAST URINE CULTURE STAT 01/08/2019 7:33 PM DRIVER/[facility]CHANDISER URINALYSIS SCREEN AND STAT 01/08/2019 MICROSCOPY, WITH REFLEX 7:32 PM DRIVER/MERCHANDISER TO CULTURE XR CHEST 1 VW PORTABLE STAT 01/08/2019 7:31 PM DRIVER/MERCHANDISER BLOOD CULTURE, AEROBIC & Routine 01/08/2019 ANAEROBIC 5:00 PM DRIVER/[facility]CHANDISER ESTIMATED GFR STAT 01/08/2019 4:52 PM DRIVER/[facility]CHANDISER LIPASE LEVEL STAT 01/08/2019 4:52 PM DRIVER/MERCHANDISER AMYLASE LEVEL STAT 01/08/2019 4:52 PM DRIVER/MERCHANDISER LACTIC ACID LEVEL, SEPSIS STAT 01/08/2019 - NOW AND REPEAT 2X EVERY 4:52 PM DRIVER/MERCHANDISER 3 HOURS COMPREHENSIVE METABOLIC STAT 01/08/2019 PANEL 4:52 PM DRIVER/MERCHAND[facility]ER TYPE AND SCREEN Routine 01/08/2019 4:52 PM DRIVER/MERCHAND[facility]ER PARTIAL THROMBOPLASTIN STAT 01/08/2019 TIME (PTT) 4:52 PM DRIVER/MERCHANDISER PROTHROMBIN TIME WITH INR STAT 01/08/2019 4:52 PM DRIVER/MERCHANDISER HC COMPLETE BLD COUNT STAT 01/08/2019 W/AUTO DIFF 4:52 PM DRIVER/MERCHANDISER BLOOD CULTURE, AEROBIC & Routine 01/08/2019 ANAEROBIC 4:52 PM DRIVER/MERCHAND[facility]ER HC COMPLETE BLD COUNT Routine 01/04/2019 W/AUTO DIFF 4:30 AM DRIVER/MERCHANDISER HEMOGLOBIN & HEMATOCRIT Routine 12/31/2018 5:05 AM DRIVER/MERCHANDISER HEMOGLOBIN & HEMATOCRIT STAT 12/30/2018 12:26 PM DRIVER/MERCHANDISER HC COMPLETE BLD COUNT Routine 12/30/2018 W/AUTO DIFF 4:15 AM DRIVER/[facility]CHAND[facility]ER ESTIMATED GFR Routine 12/30/2018 4:00 AM DRIVER/MERCHANDISER BASIC METABOLIC PANEL Routine 12/30/2018 4:00 AM DRIVER/MERCHANDISER SURGICAL PATHOLOGY Routine 12/29/2018 REQUEST 11:25 AM DRIVER/MERCHANDISER HC COMPLETE BLD COUNT Routine 12/29/2018 W/AUTO DIFF 10:57 AM DRIVER/[facility]CHAND[facility]ER ESTIMATED GFR Routine 12/29/2018 10:23 AM DRIVER/[facility]CHAND[facility]ER BASIC METABOLIC PANEL Routine 12/29/2018 10:23 AM DRIVER/MERCHANDISER GA AN ELECTIVE Routine 12/29/2018 ENDOTRACHEAL AIRWAY 7:58 AM DRIVER/MERCHANDISER GASTROENTEROSTOMY, 12/29/2018 Marginal ulcer CARMINE-EN-Y, LAPAROSCOPIC, 7:17 AM DRIVER/MERCHANDISER Gastric refl ux WITH INTRAOPERATIVE ENDOSCOPY HC COMPLETE BLD COUNT Routine 12/21/2018 Pre-op t esting W/AUTO DIFF 10:38 AM DRIVER/MERCHANDISER ECG 12-LEAD Routine 12/16/2018 Marginal ulcer 11:17 AM DRIVER/MERCHANDISER Status post gastric bypass for obesity Constipation, unspecified constipation type Pre-operative laboratory examination TYPE AND SCREEN Routine 12/16/2018 Marginal ulcer 10:55 AM DRIVER/MERCHANDISER Status post gastric bypass for obesity Constipation, unspecified constipation type Pre-operative laboratory examination HEMOGLOBIN A1C Routine 12/16/2018 Marginal ulcer 10:55 AM DRIVER/MERCHANDISER Status post gastric bypass for obesity Constipation, unspecified constipation type Pre-operative laboratory examination PARATHYROID HORMONE Routine 12/16/2018 Marginal u lcer 10:55 AM DRIVER/MERCHANDISER Status post gastric bypass for obesity Constipation, unspecified constipation type Pre-operative laboratory examination CBC WITH PLATELET AND Routine 12/16/2018 Marginal ulcer DIFFERENTIAL 10:55 AM DRIVER/MERCHANDISER Status post gastric bypass for obesity Constipation, unspecified constipation type Pre-operative laboratory examination PROTHROMBIN TIME WITH INR Routine 12/16/2018 Chayo inal ulcer 10:55 AM DRIVER/MERCHANDISER Status post gastric bypass for obesity Constipation, unspecified constipation type Pre-operative laboratory examination PARTIAL THROMBOPLASTIN Routine 12/16/2018 Margina l ulcer TIME (PTT) 10:55 AM DRIVER/MERCHANDISER Status post gastric bypass for obesity Constipation, unspecified constipation type Pre-operative laboratory examination VITAMIN A LEVEL, PLASMA Routine 12/16/2018 Margin al ulcer OR SERUM 10:55 AM DRIVER/MERCHANDISER Status post gastric bypass for obesity Constipation, unspecified constipation type Pre-operative laboratory examination COPPER LEVEL, SERUM Routine 12/16/2018 Marginal u lcer 10:55 AM DRIVER/MERCHANDISER Status post gastric bypass for obesity Constipation, unspecified constipation type Pre-operative laboratory examination VITAMIN B1 LEVEL, WHOLE Routine 12/16/2018 Margin al ulcer BLOOD 10:55 AM DRIVER/[facility]CHAND[facility]ER Status post gastric bypass for obesity Constipation, unspecified constipation type Pre-operative laboratory examination ZINC LEVEL, SERUM Routine 12/16/2018 Marginal ulc er 10:55 AM DRIVER/MERCHANDISER Status post gastric bypass for obesity Constipation, unspecified constipation type Pre-operative laboratory examination URINALYSIS, AUTOMATED Routine 12/16/2018 Marginal ulcer WITH MICROSCOPY 10:46 AM DRIVER/MERCHANDISER Status post gastric bypass for obesity Constipation, unspecified constipation type Pre-operative laboratory examination ESTIMATED GFR Routine 12/16/2018 10:24 AM DRIVER/MERCHANDISER FERRITIN LEVEL Routine 12/16/2018 Marginal ulcer 10:24 AM DRIVER/MERCHANDISER Status post gastric bypass for obesity Constipation, unspecified constipation type Pre-operative laboratory examination COMPREHENSIVE METABOLIC Routine 12/16/2018 Margin al ulcer PANEL 10:24 AM DRIVER/MERCHANDISER Status post gastric bypass for obesity Constipation, unspecified constipation type Pre-operative laboratory examination LIPID PANEL Routine 12/16/2018 Marginal ulcer 10:24 AM DRIVER/MERCHANDISER Status post gastric bypass for obesity Constipation, unspecified constipation type Pre-operative laboratory examination TOTAL IRON BINDING Routine 12/16/2018 Marginal ul cer CAPACITY 10:24 AM DRIVER/MERCHANDISER Status post gastric bypass for obesity Constipation, unspecified constipation type Pre-operative laboratory examination T4, FREE Routine 12/16/2018 Marginal ulcer 10:24 AM DRIVER/MERCHANDISER Status post gastric bypass for obesity Constipation, unspecified constipation type Pre-operative laboratory examination THYROID STIMULATING Routine 12/16/2018 Marginal u lcer HORMONE 10:24 AM DRIVER/MERCHANDISER Status post gastric bypass for obesity Constipation, unspecified constipation type Pre-operative laboratory examination VITAMIN B12 LEVEL Routine 12/16/2018 Marginal ulc er 10:24 AM DRIVER/MERCHANDISER Status post gastric bypass for obesity Constipation, unspecified constipation type Pre-operative laboratory examination VITAMIN D 25 HYDROXY Routine 12/16/2018 Marginal ulcer LEVEL 10:24 AM DRIVER/MERCHANDISER Status post gastric bypass for obesity Constipation, unspecified constipation type Pre-operative laboratory examination FOLATE LEVEL Routine 12/16/2018 Marginal ulcer 10:23 AM DRIVER/MERCHANDISER Status post gastric bypass for obesity Constipation, unspecified constipation type Pre-operative laboratory examination T3 Routine 12/16/2018 Marginal ulcer 10:23 AM DRIVER/MERCHANDISER Status post gastric bypass for obesity Constipation, unspecified constipation type Pre-operative laboratory examination INSULIN, RANDOM Routine 12/16/2018 Marginal ulcer 10:23 AM DRIVER/MERCHANDISER Status post gastric bypass for obesity Constipation, unspecified constipation type Pre-operative laboratory examination C-REACTIVE PROTEIN Routine 12/16/2018 Marginal ul cer 10:23 AM DRIVER/MERCHANDISER Status post gastric bypass for obesity Constipation, unspecified constipation type Pre-operative laboratory examination after 06/28/2018 Results * Estimated GFR (01/10/2019 4:00 AM DRIVER/MERCHANDISER) Only the most recent of 6 results within the time period is included. Pathologist [facility] [place] Estimated GFR >=90 mL/min/1.73 m2 [place] Comment: [facility] Interpretation G1 >=90 Normal or high G2 60-89 Mildly decreased G3a 45-59 Mildly to moderately decreased G3b 30-44 Moderately to severely decreased G4 15-29 Severely decreased G5 <15 Kidney failure The eGFR was calculated using the Chronic Kidney Disease Epidemiology Collaboration (CKD-EPI) equation. Interpretation is based on recommendations of the National Kidney Foundation-Kidney Disease Outcomes Quality Initiative (NKF-KDOQI) published in 2014. Specimen Plasma specimen Performing Organization Address [facility] Ph one Number [facility] DEPARTMENT OF [address] [place] [address] PATHOLOGY AND GENOMIC MEDICINE [address] * Phosphorus level (01/10/2019 4:00 AM DRIVER/MERCHANDISER) Only the most recent of 2 results within the time period is included. Pathologist [facility] [place] Phosphorus 3.7 2.4 - 4.5 mg/dL [facility] Specimen Plasma specimen Performing Organization Address [facility] Ph one Number [facility] DEPARTMENT OF [address] [place] [address] PATHOLOGY AND GENOMIC MEDICINE [address] * Magnesium level (01/10/2019 4:00 AM DRIVER/MERCHANDISER) Only the most recent of 2 results within the time period is included. Pathologist [facility] [place] Magnesium 2.0 1.6 - 2.6 mg/dL [facility] Specimen Plasma specimen Performing Organization Address City/[facility] Ph one Number [facility] DEPARTMENT OF [address] [place] [address] PATHOLOGY AND GENOMIC MEDICINE [address] * Basic metabolic panel (01/10/2019 4:00 AM DRIVER/MERCHANDISER) Only the most recent of 4 results within the time period is included. Pathologist [facility] [place] Sodium 139 135 - 148 mEq/L [facility] Potassium 3.8 3.5 - 5.0 mEq/L [facility] Chloride 106 98 - 112 mEq/L [facility] CO2 24 24 - 31 mEq/L [facility] Anion gap 9@ANIO 7 - 15 mEq/L [facility] BUN 11 6 - 20 mg/dL [facility] Creatinine 0.65 0.50 - 0.90 mg/dL [facility] Glucose 85 65 - 99 mg/dL [facility] Calcium 8.5 8.3 - 10.2 mg/dL [facility] Specimen Plasma specimen Performing Organization Address City/[facility] Ph one Number [facility] DEPARTMENT OF [address] [place] [address] PATHOLOGY AND GENOMIC MEDICINE [address] * Manual differential (01/10/2019 3:48 AM DRIVER/MERCHANDISER) Only the most recent of 2 results within the time period is included. Pathologist [facility] [place] Manual PERFORMED [place] differential [facility] Neutrophils 29.0 (L) 39.0 - 69.0 % [facility] Lymphocytes 53.0 (H) 25.0 - 45.0 % [facility] Monocytes 9.0 0.0 - 10.0 % [facility] Eosinophils 8.0 (H) 0.0 - 5.0 % [facility] Basophils 1.0 0.0 - 1.0 % [facility] Metamyelocytes 0 % [facility] Promyelocytes 0 % [facility] Reactive Few [facility] Platelet slide Marcus adequate [facility] Anisocytosis Moderate [facility] Polychromasia Moderate [facility] Ovalocytes Moderate [facility] Enlarged Moderate (A) [place] platelets [facility] Specimen Performing Organization Address City/State/Zipcode Ph one Number [facility] DEPARTMENT OF [address] [place] [address] PATHOLOGY AND GENOMIC MEDICINE [address] * CBC with platelet and differential (01/10/2019 3:48 AM DRIVER/MERCHANDISER) Only the most recent of 8 results within the time period is included. Pathologist [facility] [place] WBC 3.34 (L) 4.50 - 11.00 k/uL [facility] RBC 2.64 (L) 4.20 - 5.50 m/uL [facility] HGB 8.3 (L) 12.0 - 16.0 g/dL [facility] HCT 25.5 (L) 37.0 - 47.0 % [facility] MCV 96.6 82.0 - 100.0 fL [facility] MCH 31.4 27.0 - 34.0 pg [facility] MCHC 32.5 31.0 - 37.0 g/dL [facility] RDW - SD 46.8 37.0 - 55.0 fL [facility] MPV 10.2 8.8 - 13.2 fL [facility] Platelet count 232 150 - 400 k/uL [facility] Nucleated RBC 0.00 /100 WBC [facility] Neutrophils 29.0 (L) 39.0 - 69.0 % [facility] Lymphocytes 53.0 (H) 25.0 - 45.0 % [facility] Monocytes 9.0 0.0 - 10.0 % [facility] Eosinophils 8.0 (H) 0.0 - 5.0 % [facility] Basophils 1.0 0.0 - 1.0 % [facility] Specimen Blood Performing Organization Address City/[facility] Ph one Number [facility] DEPARTMENT OF [address] [place] [address] PATHOLOGY AND GENOMIC MEDICINE [address] * Occult blood, stool (01/09/2019 9:20 AM DRIVER/MERCHANDISER) Pathologist [facility] [place] Occult blood, Positive for Occult blood [place] stool [facility] Comment: Specimen Information Specimen Source: Stool Specimen Site: Nonpreserved Specimen Stool - Nonpreserved Performing Organization Address City/[facility]/Zipcode Ph one Number [facility] DEPARTMENT OF [address] [place] [id number] PATHOLOGY AND GENOMIC MEDICINE [address] * Lactic acid level (01/08/2019 10:34 PM DRIVER/MERCHANDISER) Lactic acid 0.8 0.5 - 2.2 mmol/L [facility] Specimen Plasma specimen Performing Organization Address City/[facility] Ph one Number [facility] DEPARTMENT OF [address] [place] [address] PATHOLOGY AND GENOMIC MEDICINE [address] * Hepatic function panel (01/08/2019 10:34 PM DRIVER/MERCHANDISER) Albumin 3.4 (L) 3.5 - 5.0 g/dL [facility] Total bilirubin 0.5 0.0 - 1.2 mg/dL [facility] Bilirubin <0.2 0.0 - 0.3 mg/dL [place] direct [facility] Alkaline 61 35 - 104 U/L [place] phosphatase [facility] Protein 6.6 6.3 - 8.3 g/dL [place] Comment: [facility] Fyeaeqf5773.6-7.0 g/dL HOSPITAL 1 svad3821.4-7.6 g/dL 7 months-8gxzk308.1-7.3 g/dL 1-2 vjonp802.6-7.5 g/dL >3 .0-8.0 g/dL [id number] g/dL ALT 24 5 - 50 U/L [facility] AST 20 10 - 35 U/L [facility] Specimen Plasma specimen Performing Organization Address City/[facility] Ph one Number [facility] DEPARTMENT OF [address] [place] [address] PATHOLOGY AND GENOMIC MEDICINE [address] * CT Chest W Contrast Abdomen W Contrast Pelvis W Contrast (01/08/2019 8:56 PM DRIVER/MERCHANDISER) Specimen Narrative Performed At EXAMINATION: [facility] CT CHEST W CONTRAST ABDOMEN W CONTRAST PELVIS W CONTRAST CLINICAL HISTORY: r o pneumonia s p gastric bypass revi td with fevers to r o any leak TECHNIQUE: An emergency study was performed at [address] images were acquired using low-dose technique with iterative reconstructions and/or automated exposure control to reduce radiation do se. Multiple axial images of the chest, abdomen, and pelvis were obtained following administration of in travenous and oral contrast. Sagittal, axial and coronal computerized reformat katya images were obtained. COMPARISON: Portable chest, obtained on 01/08/2019 a t 1916 hours. CHEST: Skeletal structures are within normal l imits. There are no infiltrates, pleural fluid or parenchymal masses. The heart is normal in size. The aorta and great vessels are normal. Coronary artery lindy cification is not seen. Pulmonary arteries and veins are normal in caliber. Superior vena cava i s normal. The mediastinum is free of masses and adenopathy. ABDOMEN: Skeletal structures are within normal l imits. The liver, spleen and pancreas are normal. Intrahepatic biliary ducts are mildly dilated. Common bile duct is dilated, up to 9 mm. A filling defect i s suggested in the caudal common duct. The gallbladder is surgically absent. The adrenal glands a nd kidneys are normal. The abdominal aorta and inferior vena cava are normal . There is no retroperitoneal adenopathy. Postoperative changes from Carmine-en-Y ga stric bypass and hiatal hernia repair are seen. Edema is adjacent to the gastric pouch and in th e region of the hiatal hernia repair. A fluid collection is not seen. The exclu ded portion of the stomach is fluid-filled, but not distended. Gastro jejunostomy is patent. An intussusception is in the Carmine limb, faintly outlined by contrast. Extravasa tion is not appreciated. Remaining small bowel is not dilated. The appendix is n ot discretely identified. A moderate to large amount of stool is seen throughou t the colon. Contrast is in the distal colon. PELVIS: Bladder is completely collapsed. Uterus is not seen. A 3.5 cm right paramedian cyst is present. Its slightly increased density raises possibility of hemorrhagic cyst. There is no free flui d. IMPRESSION: Normal CT scan of the chest. Status pos t gastric bypass and hiatal hernia repair. Significant edema remains in th e operative site, without fluid collection or extravasation. Intussusce ption in the Carmine limb, faintly outlined by contrast material. Contrast has progressed beyond the intu ssusception. Probable constipation. Probable right ovarian hemorrhagic cyst . Mildly dilated biliary system, possibly secondary to postoperative ectasia. Sug gestion of a filling defect in the caudal common duct raises the possibility of a retained ca lculus. This could be verified with MRCP. Status post hysterectomy and cholecyste ctomy. [facility]-[id number] Procedure Note Hm Interface, Radiology Results Incoming - 01/08/2019 9:59 PM DRIVER/MERCHANDISER EXAMINATION: CT CHEST W CONTRAST ABDOMEN W CONTRAST PELVIS W CONTRAST CLINICAL HISTORY: r o pneumonia s p gastric bypass revision with fevers to r o any leak TECHNIQUE: An emergency study was performed at [address] images were acquired using low-dose technique with iterative reconstructions and/or automated exposure control to reduce radiation dose. Multiple axial images of the chest, abdomen, and pelvis were obtained following administration of intravenous and oral contrast. Sagittal, axial and coronal computerized reformatted images were obtained. COMPARISON: Portable chest, obtained on 01/08/2019 at 1916 hours. CHEST: Skeletal structures are within normal limits. There are no infiltrates, pleural fluid or parenchymal masses. The heart is normal in size. The aorta and great vessels are normal. Coronary artery calcification is not seen. Pulmonary arteries and veins are normal in caliber. Superior vena cava is normal. The mediastinum is free of masses and adenopathy. ABDOMEN: Skeletal structures are within normal limits. The liver, spleen and pancreas are normal. Intrahepatic biliary ducts are mildly dilated. Common bile duct is dilated, up to 9 mm. A filling defect is suggested in the caudal common duct. The gallbladder is surgically absent. The adrenal glands and kidneys are normal. The abdominal aorta and inferior vena cava are normal. There is no retroperitoneal adenopathy. Postoperative changes from Carmine-en-Y gastric bypass and hiatal hernia repair are seen. Edema is adjacent to the gastric pouch and in the region of the hiatal hernia repair. A fluid collection is not seen. The excluded portion of the stomach is fluid- filled, but not distended. Gastrojejunostomy is patent. An intussusception is in the Carmine limb, faintly outlined by contrast. Extravasation is not appreciated. Remaining small bowel is not dilated. The appendix is not discretely identified. A moderate to large amount of stool is seen throughout the colon. Contrast is in the distal colon. PELVIS: Bladder is completely collapsed. Uterus is not seen. A 3.5 cm right paramedian cyst is present. Its slightly increased density raises possibility of hemorrhagic cyst. There is no free fluid. IMPRESSION: Normal CT scan of the chest. Status post gastric bypass and hiatal hernia repair. Significant edema remains in the operative site, without fluid collection or extravasation. Intussusception in the Carmine limb, faintly outlined by contrast material. Contrast has progressed beyond the intussusception. Probable constipation. Probable right ovarian hemorrhagic cyst. Mildly dilated biliary system, possibly secondary to postoperative ectasia. Suggestion of a filling defect in the caudal common duct raises the possibility of a retained calculus. This could be verified with MRCP. Status post hysterectomy and cholecystectomy. [facility]-[id number] Performing Organization Address [facility] [place] [address] * Urine culture (01/08/2019 7:33 PM DRIVER/MERCHANDISER) Urine culture SEE COMMENTComment: [place] Bacteriuria screen negative. [facility] Specimen Performing Organization Address [facility] one Number [facility] DEPARTMENT OF [address] [place] [address] PATHOLOGY AND GENOMIC MEDICINE [address] * Urinalysis screen and microscopy, with reflex to culture (01/08/2019 7:32 PM DRIVER/MERCHANDISER) Specimen site Clean catch [facility] Color, UA Yellow [facility] Appearance, UA Hazy [facility] Specific 1.021 1.001 - 1.035 [place] gravity, [facility] pH, UA 8.0 5.0 - 8.5 [facility] Protein, UA Negative Negative [facility] Glucose, UA Negative Negative [facility] Ketones, UA Trace (A) Negative [facility] Bilirubin, UA Negative Negative [facility] Blood, UA Negative Negative [facility] Nitrite, UA Negative Negative [facility] Urobilinogen, 4.0 (A) <2.0 [facility] Leukocyte Negative Negative [place] esterase, [facility] Epithelial <1 /HPF [place] cells, [facility] WBC, UA None seen 0 - 4 /HPF [facility] RBC, UA <1 0 - 5 /HPF [facility] Bacteria, UA None seen None seen [facility] Yeast, UA None seen [facility] Yeast with None seen [place] [facility] Specimen Urine Performing Organization Address [facility] one Number [facility] DEPARTMENT OF [address] [place] [address] PATHOLOGY AND GENOMIC MEDICINE [address] * XR Chest 1 Vw Portable (01/08/2019 7:31 PM DRIVER/MERCHANDISER) Specimen Narrative Performed At EXAMINATION: XR CHEST 1 VW PORTABLE [facility] CLINICAL HISTORY: r o pneumonia COMPARISON: None . IMPRESSION: Cardiomediastinal silhouette and pulmon oniel vasculature are within normal limits. Lungs are clear. No pleural effusion or pneumothorax. Bones are unremarkable. [facility]-[id number] Procedure Note Hm Interface, Radiology Results Incoming - 01/08/2019 8:49 PM DRIVER/MERCHANDISER EXAMINATION: XR CHEST 1 VW PORTABLE CLINICAL HISTORY: r o pneumonia COMPARISON: None . IMPRESSION: Cardiomediastinal silhouette and pulmonary vasculature are within normal limits. Lungs are clear. No pleural effusion or pneumothorax. Bones are unremarkable. [facility]-[id number] Performing Organization Address [facility] one Number [facility] [address] [place] [address] * Blood culture, aerobic & anaerobic (01/08/2019 5:00 PM DRIVER/MERCHANDISER) Only the most recent of 2 results within the time period is included. Pathologist [facility] [place] Blood culture No growth after 5 days of [place] isolate incubation. [facility] Comment: HOSPITAL Specimen Information Specimen Source: Blood Specimen Site: Antecubital, right Specimen Blood - Antecubital, right Performing Organization Address [facility] one Number [facility] DEPARTMENT OF [address] [place] [address] PATHOLOGY AND GENOMIC MEDICINE [address] * Lactic acid level, SEPSIS - Now and repeat 2x every 3 hours (01/08/2019 4:52 PM DRIVER/MERCHANDISER) Lactic acid 1.8 0.5 - 2.2 mmol/L [facility] Specimen Plasma specimen Performing Organization Address [facility] one Number [facility] DEPARTMENT OF [address] [place] [address] PATHOLOGY AND GENOMIC MEDICINE [address] * Partial thromboplastin time, activated (01/08/2019 4:52 PM DRIVER/MERCHANDISER) Only the most recent of 2 results within the time period is included. PTT 32.5 23.0 - 36.0 sec [place] Comment: [facility] PTT therapeutic range for HOSPITAL unfractionated heparin is 61.0-112.0 seconds which corresponds to Anti-Xa 0.3-0.7 U/ml. Specimen Blood Performing Organization Address [facility] one Number [facility] DEPARTMENT OF [address] [place] [address] PATHOLOGY AND [facility] MEDICINE [address] * Prothrombin time with INR (01/08/2019 4:52 PM DRIVER/MERCHANDISER) Only the most recent of 2 results within the time period is included. Prothrombin 13.7 11.5 - 14.5 sec [facility] INR 1.1 [place] Comment: [facility] The International Normalized HOSPITAL Ratio (INR) is a therapeutic monitoring tool for patients who are stable on oral anticoagulant therapy. An INR of 2.0-3.0 is suggested for deep vein thrombosis/pulmonary embolism. Specimen Blood Performing Organization Address [facility] one Number [facility] DEPARTMENT OF [address] [place] [address] PATHOLOGY AND [facility] MEDICINE [address] * Type and screen (01/08/2019 4:52 PM DRIVER/MERCHANDISER) Only the most recent of 2 results within the time period is included. ABO grouping O [facility] Rh type POS [facility] Antibody screen NEG [place] (gel) [facility] Specimen Blood Performing Organization Address [facility] one Number [facility] DEPARTMENT OF [address] [place] [address] PATHOLOGY AND [facility] MEDICINE [address] * Lipase level (01/08/2019 4:52 PM DRIVER/MERCHANDISER) Lipase 14 13 - 60 U/L [facility] Specimen Plasma specimen Performing Organization Address [facility] one Number [facility] DEPARTMENT OF [address] [place] [address] PATHOLOGY AND GENOMIC MEDICINE [address] * Amylase level (01/08/2019 4:52 PM DRIVER/MERCHANDISER) Amylase 17 (L) 28 - 100 U/L [facility] Specimen Plasma specimen Performing Organization Address [facility]/Zipcode Ph one Number [facility] DEPARTMENT OF [address] [place] [address] PATHOLOGY AND GENOMIC MEDICINE [address] * Comprehensive metabolic panel (01/08/2019 4:52 PM DRIVER/MERCHANDISER) Only the most recent of 2 results within the time period is included. Pathologist [facility] [place] Sodium 137 135 - 148 mEq/L [facility] Potassium 4.0 3.5 - 5.0 mEq/L [facility] Chloride 99 98 - 112 mEq/L [facility] CO2 26 24 - 31 mEq/L [facility] Anion gap 12@ANIO 7 - 15 mEq/L [facility] BUN 9 6 - 20 mg/dL [facility] Creatinine 0.75 0.50 - 0.90 mg/dL [facility] Glucose 141 (H) 65 - 99 mg/dL [facility] Calcium 9.2 8.3 - 10.2 mg/dL [facility] Protein 7.7 6.3 - 8.3 g/dL [place] Comment: [facility] Cglzvyl1207.6-7.0 g/dL HOSPITAL 1 yprx7070.4-7.6 g/dL 7 months-1ycol407.1-7.3 g/dL 1-2 .6-7.5 g/dL >3 foazw195.0-8.0 g/dL 18-3191932.3-8.3 g/dL Albumin 3.9 3.5 - 5.0 g/dL [facility] A/G ratio 1.0 0.7 - 3.8 [facility] Alkaline 72 35 - 104 U/L [place] phosphatase [facility] AST 27 10 - 35 U/L [facility] ALT 30 5 - 50 U/L [facility] Total bilirubin 0.5 0.0 - 1.2 mg/dL [facility] Specimen Plasma specimen Performing Organization Address City/State/Zipcode Ph one Number [facility] DEPARTMENT OF [address] [place] [address] PATHOLOGY AND GENOMIC MEDICINE [address] * Hemoglobin & hematocrit (12/31/2018 5:05 AM DRIVER/MERCHANDISER) Only the most recent of 2 results within the time period is included. [facility] HGB 8.2 (L) 12.0 - 16.0 g/dL [facility] HCT 25.3 (L) 37.0 - 47.0 % [facility] Specimen Blood Performing Organization Address City/[facility] Ph one Number [facility] DEPARTMENT OF [address] [place] [address] PATHOLOGY AND GENOMIC MEDICINE [address] * Surgical pathology request (12/29/2018 11:25 AM DRIVER/MERCHANDISER) [facility] DEPARTMENT OF PATHOLOGY AND GENOMIC MEDICINE Surgical See link below for PDF Lab [facility] DEPART MENT pathology Report OF PATHOLOGY report AND GENOMIC MEDICINE Result status This is Final Report for [facility] DEPARTME NT [id number] OF PATHOLOGY AND GENOMIC MEDICINE Specimen Performing Organization Address [facility] Ph one Number [facility] DEPARTMENT OF [address] [place] [address] PATHOLOGY AND GENOMIC MEDICINE * Airway (12/29/2018 7:58 AM DRIVER/MERCHANDISER) Narrative Performed At Mesha Mittal 12/29/2018 7: 59 AM Airway Date/Time: 12/29/2018 7:27 AM Performed by: Mesha Mittal Authorized by: Saleem Watts MD Location: OR Urgency: Elective Difficult Airway: No Anesthesiologist: Marilu Cantrell MD Resident/CAKE PULLER/AA: Bipin Terry CRNA Other Anesthesia Staff: Yohana Mittal Performed by: other anesthesia staff Preoxygenated with 100% O2: Yes Mask Ventilation: Not attempted Final Airway Type: Endotracheal airwa y Final Endotracheal Airway: ETT Technique Used: Direct laryngoscopy Devices/Methods Used in Placement: In tubating stylet Insertion Site: Oral Blade Type: Avila Laryngoscope Blade/Videolaryngoscope Bl bari Size: 2 ETT Size (mm): 7.0 Measured from: Lips ETT to Lips (cm): 21 Placement Verified by: CO2 detection an d direct visualization Laryngoscopic view: Grade I - full vi ew of glottis Rapid Sequence Induction (RSI): Yes Number of Attempts at Approach: 1 Smooth IV RSI induction. Cricoid pressu re applied. DLx 1 by SRNA, grade 1 view. ETT passed atraumatically through cords, cuffed to seal. No damage to lips, teeth, or gums. EtCO2 confirme d on anesthesia machine. Cricoid pressure released. * ECG 12 lead (12/16/2018 11:17 AM DRIVER/MERCHANDISER) Ventricular 57 [facility] rate Atrial rate 57 [facility] GA interval 150 [facility] QRSD interval 84 [facility] QT interval 420 [facility] QTC interval 408 [facility] P axis 1 73 [facility] QRS axis 1 76 [facility] T wave axis 66 [facility] EKG impression Sinus bradycardia with sinus [facility] MUSE arrhythmia-Low voltage QRS-Borderline ECG-No previous ECGs available- Specimen Narrative Performed At This result has an attachment that is n ot available. Performing Organization Address [facility] one Number [facility] MUSE [address] [place] [address] * Copper level, serum (12/16/2018 10:55 AM DRIVER/MERCHANDISER) [facility] Copper 112.2 80.0 - 155.0 ug/dL [facility] Comment: INTERPRETIVE INFORMATION: Copper, Serum or Plasma Elevated results may be due to skin or collection-related contamination, including the use of a noncertified metal-free collection/transport tube. If contamination concerns exist due to elevated levels of serum/plasma copper, confirmation with a second specimen collected in a certified metal-free tube is recommended. Serum copper may be elevated with infection, inflammation, stress, and copper supplementation. In females, elevated copper may also be caused by oral contraceptives and (concentrations may be elevated up to 3 times normal during the third trimester). Test developed and characteristics determined by [facility]. See Compliance Statement B: Lost My Name.[x+1]/CS Performed by [facility], [address] [place] [address] [email or web address], Jose Rodrigues MD, Lab. Director Specimen Blood Performing Organization Address [facility] Ph one Number [facility] [address] [place] [address] [facility] [address] [place] [address] * Vitamin B1 level, whole blood (12/16/2018 10:55 AM DRIVER/MERCHANDISER) Vitamin B1 89 70 - 180 nmol/L [facility] Comment: INTERPRETIVE INFORMATION: Vitamin B1, Whole Blood This assay measures the concentration of thiamine diphosphate (TDP), the primary active form of vitamin B1. Approximately 90 percent of vitamin B1 present in whole blood is TDP. Thiamine and thiamine monophosphate, which comprise the remaining 10 percent, are not measured. Test developed and characteristics determined by [facility]. See Compliance Statement B: [facility] [employer]/CS Performed by [facility], [address] [place] [address] [email or web address], Jose Rodrigues MD, Lab. Director Specimen Plasma specimen Performing Organization Address [facility] Ph one Number [facility] [address] [place], [place] [address] [address] [place] [address] * Zinc level, serum (12/16/2018 10:55 AM DRIVER/MERCHANDISER) Zinc 78.8 60.0 - 120.0 ug/dL [facility] Comment: INTERPRETIVE INFORMATION: Zinc, Serum or Plasma Elevated results may be due to skin or collection-related contamination, including the use of a noncertified metal-free collection/transport tube. If contamination concerns exist due to elevated levels of serum/plasma zinc, confirmation with a second specimen collected in a certified metal-free tube is recommended. Circulating zinc concentrations are dependent on albumin status and are depressed with malnutrition. Zinc may also be lowered with infection, inflammation, stress, oral contraceptives, and . Zinc may be elevated with zinc supplementation or fasting. Elevated zinc concentrations may interfere with copper absorption. Test developed and characteristics determined by [facility]. See Compliance Statement B: [facility] [employer]/CS Performed by [facility], [address] [place] [id number] [email or web address], Jose Rodrigues MD, Lab. Director Specimen Blood Performing Organization Address [facility] one Number [facility] [address] [place] [address] [facility] [address] [place] [address] * Vitamin A level, plasma or serum (12/16/2018 10:55 AM DRIVER/MERCHANDISER) Vitamin A 0.35 0.30 - 1.20 mg/L [facility] (retinol) Retinyl <0.02 0.00 - 0.10 mg/L [facility] palmitate Vitamin A Normal [facility] interpretation Comment: Test developed and characteristics determined by [facility]. See Compliance Statement B: [facility] [employer]/CS Performed by [facility], [address] [place] [address] [email or web address], Jose Rodrigues MD, Lab. Director Specimen Plasma specimen Performing Organization Address City/[facility] Ph one Number [facility] [address] [place] [address] [facility] [address] [place] [address] * Parathyroid hormone (12/16/2018 10:55 AM DRIVER/MERCHANDISER) [facility] PTH 72 (H) 15 - 65 pg/mL [facility] Specimen Blood Performing Organization Address City/[facility] Ph one Number [facility] DEPARTMENT OF [address] [place] [address] PATHOLOGY AND GENOMIC MEDICINE [address] * Hemoglobin A1c (12/16/2018 10:55 AM DRIVER/MERCHANDISER) [facility] Hemoglobin A1C 4.6 4.0 - 5.6 % [place] Comment: [facility] HbA1c cutoffs for diagnosing HOSPITAL diabetes: 4.0% - 5.6% = normal 5.7% - 6.4% = increased risk for diabetes (prediabetes)9 >=6.5% = diabetes9 Goals for glycemic control (ADA 2016) < 7.0% Target for non adults with diabetes. More or less stringent targets may be appropriate for individual patients. <7.5% Target for Children and adolescents with type 1 diabetes. Specimen Blood Performing Organization Address City/[facility] Ph one Number [facility] DEPARTMENT OF [address] [place] [address] PATHOLOGY AND GENOMIC MEDICINE [address] * Urinalysis, automated with microscopy (12/16/2018 10:46 AM DRIVER/MERCHANDISER) Color, UA Yellow [facility] Appearance, UA Clear [facility] Specific 1.023 1.001 - 1.035 [place] gravity, [facility] pH, UA 5.0 5.0 - 8.5 [facility] Protein, UA Negative Negative [facility] Glucose, UA Negative Negative [facility] Ketones, UA Negative Negative [facility] Bilirubin, UA Negative Negative [facility] Blood, UA Negative Negative [facility] Nitrite, UA Negative Negative [facility] Urobilinogen, 2.0 (A) <2.0 [facility] Leukocyte Negative Negative [place] esterase, UA [facility] Epithelial 1 /HPF [place] cells, [facility] WBC, UA 1 0 - 4 /HPF [facility] RBC, UA 2 0 - 5 /HPF [facility] Bacteria, UA Few None seen [facility] Yeast, UA None seen [facility] Yeast with None seen [place] [facility] Specimen Urine Performing Organization Address City/[facility] Ph one Number [facility] DEPARTMENT OF [address] [place] [address] PATHOLOGY AND GENOMIC MEDICINE [address] * Total iron binding capacity (12/16/2018 10:24 AM DRIVER/MERCHANDISER) Iron level 138 37 - 145 ug/dL [facility] Iron binding 262 200 - 400 ug/dL [facility] % Saturation 52.7 (H) 15.0 - 38.0 % [facility] Specimen Plasma specimen Performing Organization Address [facility] Ph one Number [facility] DEPARTMENT OF [address] [place] [address] PATHOLOGY AND GENOMIC MEDICINE [address] * Vitamin D 25 hydroxy level (12/16/2018 10:24 AM DRIVER/MERCHANDISER) Vitamin D, 31.3 30.0 - 150.0 ng/mL [place] 25-hydroxy Comment: [facility] This assay reports the sum of HOSPITAL 25-hydroxy vitamin D3 and 25-hydroxy vitamin D2. Reference range: 0-17 years: Deficiency: less than 20ng/mL Optimum level: greater than or equal to 20 ng/mL. 18 years and older: Deficiency: less than 20ng/mL Insufficiency: 20-29 ng/mL Optimum Level: 30-80 ng/mL The assay reportable range is 3.4 155.9 ng/mL. Levels higher than 150 ng/mL may be associated with toxicity. If toxicity is clinically suspected and the reported result is >155.9 ng/mL,contact lab for alternative methods to obtain a definitive level. If separate quantitation of 25-hydroxy vitamin D3 and 25-hydroxy vitamin D2 is needed, please contact lab for alternative methods. Specimen Blood Performing Organization Address City/[facility] Ph one Number [facility] DEPARTMENT OF [address] [place] [address] PATHOLOGY AND [facility] MEDICINE [address] * Thyroid stimulating hormone (12/16/2018 10:24 AM DRIVER/MERCHANDISER) TSH 2.29 0.27 - 4.20 uIU/mL [facility] Specimen Plasma specimen Performing Organization Address City/[facility] Ph one Number [facility] DEPARTMENT OF [address] [place] [address] PATHOLOGY AND GENOMIC MEDICINE [address] * T4, free (12/16/2018 10:24 AM DRIVER/MERCHANDISER) T4, free 1.2 0.9 - 1.7 ng/dL [facility] Specimen Plasma specimen Performing Organization Address [facility] Ph one Number [facility] DEPARTMENT OF [address] [place] [address] PATHOLOGY AND GENOMIC MEDICINE [address] * Ferritin level (12/16/2018 10:24 AM DRIVER/MERCHANDISER) Ferritin level 157 (H) 13 - 150 ng/mL [facility] Specimen Plasma specimen Performing Organization Address City/[facility] Ph one Number [facility] DEPARTMENT OF [address] [place] [address] PATHOLOGY AND GENOMIC MEDICINE [address] * Vitamin B12 level (12/16/2018 10:24 AM DRIVER/MERCHANDISER) Vitamin B12 764 211 - 946 pg/mL [place] Comment: [facility] Significant overlap exists [facility]OSPITAL between normal and deficiency states. However, most patients with deficiencies will have Serum B12 <200 pg/mL. Specimen Serum Performing Organization Address [facility] Ph one Number [facility] DEPARTMENT OF [address] [place] [address] PATHOLOGY AND GENOMIC MEDICINE [address] * Lipid panel (12/16/2018 10:24 AM DRIVER/MERCHANDISER) Pathologist [facility] Cholesterol 148 <200 mg/dL [facility] Triglycerides 62 <150 mg/dL [facility] HDL cholesterol 65 >40 mg/dL [facility] LDL cholesterol 79Comment: Result obtained by <100 mg/dL [place] direct LDL measurement [facility]: [facility] Total Cholesterol (mg/dL) [facility] <200 Desirable 200-239 Borderline-high >=240 High Triglycerides (mg/dL) <150 Normal 150-199 Borderline-high 200-499 High >=500 Very high HDL Cholesterol (mg/dL) <40 Low (male) <40 Low (female) LDL Cholesterol (mg/dL) <100 Optimal 100-129 Near or above optimal 130-159 Borderline-high 160-189 High >=190 Very high Risk Catergories that modify LDL goals. Risk Catergories LDL goal (mg/dL) CHD and CHD risk equivalent <100 (10-year risk >20%) Multiple (2+) risk factors <130 (10-year risk =<20%) 0-1 risk factors <160 (<10-year risk) Defining levels of lipids in metabolic syndrome Triglycerides >=150 mg/dL HDL Cholesterol Men <40 mg/dL Women <40 mg/dL Non-HDL cholesterol is a second target for therapy in persons with high triglycerides (>=200 mg/dL) Specimen Plasma specimen Performing Organization Address City/[facility] Ph one Number [facility] DEPARTMENT OF [address] [place] [address] PATHOLOGY AND [facility] MEDICINE [address] * Insulin, random (12/16/2018 10:23 AM DRIVER/MERCHANDISER) [facility] Insulin, random 3.4Comment: The reference mU/L SHAHRAM STON interval for fasting insulin [facility] is 2.6-24.9 mU/L [facility] Specimen Plasma specimen Performing Organization Address City/State/Zipcode Ph one Number [facility] [place] [address] PATHOLOGY AND GENOMIC MEDICINE [address] * C-reactive protein (12/16/2018 10:23 AM DRIVER/MERCHANDISER) [facility] CRP <0.30 0.00 - 0.50 mg/dL [facility] Specimen Plasma specimen Performing Organization Address [facility] DEPARTMENT OF [address] [place] [address] PATHOLOGY AND GENOMIC MEDICINE [address] * T3 (12/16/2018 10:23 AM DRIVER/MERCHANDISER) T3 82 80 - 200 ng/dL [facility] Specimen Plasma specimen Performing Organization Address City/[facility] Ph one Number [facility] DEPARTMENT OF [address] [place] [address] PATHOLOGY AND GENOMIC MEDICINE [address] * Folate level (12/16/2018 10:23 AM DRIVER/MERCHANDISER) Folate 14.5 4.8 - 24.2 ng/mL [facility] Specimen Serum Performing Organization Address City/[facility] Ph one Number [facility] DEPARTMENT OF [address] [place] [address] PATHOLOGY AND GENOMIC MEDICINE [address] after 06/28/2018 Insurance Type Payer Benefit Subscriber ID Effective Phone Address Plan / Dates Group HMO AETNA AETNA xxxxxxxxxx [id number] HMO,POS,[id number] resent O, MC/EC [id number] Advance Directives For more information, please contact: [phone] 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
--- NOTE | 2019-06-29 13:12 | Operative Report ---
DATE OF PROCEDURE: 06/29/2019 SURGEON: Héctor Arambula MD PROCEDURES: EGD with esophageal brushings and esophageal dilatation and colonoscopy with polypectomy. INDICATION FOR EGD: Dysphagia. INDICATIONS FOR COLONOSCOPY: Surveillance colonoscopy, personal history of colon polyps. MEDICATIONS: The patient was done under MAC, please see anesthesiologist's note. PROCEDURE IN DETAIL: With the patient in the left lateral decubitus position, a flexible fiberoptic Olympus gastroscope was introduced into the esophagus under direct visualization without any difficulty. Brushings were obtained to rule out possible Melania esophagitis due to the recurrent complaints of dysphagia. Esophagus was then dilated to size 54-Egyptian Jaffe. The scope was then advanced with ease into the stomach and the patient is status post Byron-en-Y. Anastomosis was intact. There were no evidence of marginal ulcers. The scope was then retroflexed into the gastric cuff and postoperative changes were noted. The scope was then straightened out, it was subsequently withdrawn, and the patient tolerated the procedure well. IMPRESSION: 1. Rule out Melania esophagitis. 2. Esophagus dilated to size 54-Egyptian Jaffe. 3. Status post Byron-en-Y. Anastomosis intact. No marginal ulcers. PLAN: Follow up cytology. Continue omeprazole 40 mg one p.o. before meals b.i.d., Carafate 1 g p.o. before meals t.i.d. and at bedtime, and Reglan 10 mg one p.o. before meals t.i.d. and at bedtime. The patient was then turned around and after adequate lubrication of the anal canal, a flexible fiberoptic Olympus colonoscope was inserted into the rectum with ease and advanced all the way to the cecum. Mucosa overlying the cecum appeared to be within normal limits. A minute polyp was removed per the cold biopsy forceps from the ascending colon. Transverse and descending appeared to be within normal limits. Approximately 5 mm sessile polyp was removed per hot snare polypectomy from the distal sigmoid colon. The rectum appeared to be within normal limits. The scope was then retroflexed into the distal rectum and small internal hemorrhoids were noted, none of which was actively bleeding. The scope was then straightened out, it was subsequently withdrawn, and the patient tolerated the procedure well. IMPRESSION: 1. Ascending colon polyp, removed per cold biopsy forceps. 2. Sigmoid colon polyp, approximately 5 mm in size, sessile, removed per hot snare polypectomy. 3. Internal hemorrhoids, none actively bleeding. PLAN: Follow up histology. Initiate high-fiber, low-fat diet. Initiate high-fiber supplement. The patient might benefit from a followup colonoscopy in 3 years. MD EZEQUIEL Ramos/LILLIANAL /[id number] cc: Jama Vasquez DO
== END | disposition home or self-care (01) ==
LOC: OR 06:56
PROVIDERS: ATTEND Internal Medicine Gastroenterology
DX: K20.8 Other esophagitis (principal); K63.5 Polyp of colon; K29.60 Other gastritis without bleeding; K58.1 Irritable bowel syndrome with constipation; K64.8 Other hemorrhoids; Z98.84 Bariatric surgery status; Z88.6 Allergy status to analgesic agent; Z01.812 Encounter for preprocedural laboratory examination; Z11.59 Encounter for screening for other viral diseases
CPT/HCPCS: 43450; 45380; 45385; 87106; 87205; 87635; J2001; J2250; J2704; 43235

== ENCOUNTER 2020-03-27 20:08 | Emergency (ER) | payer BC, OTHER ==
[~2020-03-27] VITALS: Ht 157.5 cm; Wt 51.8 kg
[~2020-03-27 20:08] MED LIST changes: -HYOSCYAMINE 0.125 MG TAB ONE; -LIDOCAINE HCL 2% LOCAL INJ 5 ML SDV VIAL INJ ONE; -MIDAZOLAM HCL 2 MG/2 ML VIAL ONE; -PROPOFOL IV EMULSION 10 MG/ML 20 ML VIAL ONE; -SCOPOLAMINE 1.5 MG PATCH ONE
== END 2020-03-27 21:09 | disposition home or self-care (01) ==
LOC: FSED 20:24
DX: L73.9 Follicular disorder, unspecified (principal); Z87.19 Personal history of other diseases of the digestive system
CPT/HCPCS: 99282

== ENCOUNTER → 2020-05-24 | Day surgery (SDC) | payer BC ==
[~2020-05-24] MED LIST changes: +LIDOCAINE HCL 2% LOCAL INJ 5 ML SDV VIAL INJ ONE; +MULTI-VITAMIN1 EACH PO; +PROPOFOL IV EMULSION 10 MG/ML 20 ML VIAL ONE; +SIMETHICONE 40 MG/0.6 ML BTL ONE; +VIT B12 SL
[2020-05-24 11:47] VITALS: BP 128/76
== END | disposition home or self-care (01) ==
LOC: ENDO 07:34
PROVIDERS: ATTEND Internal Medicine Gastroenterology
DX: K22.2 Esophageal obstruction (principal); K20.90 Esophagitis, unspecified without bleeding; R10.10 Upper abdominal pain, unspecified; Z98.84 Bariatric surgery status; Z86.010 Personal history of colon polyps; M32.9 Systemic lupus erythematosus, unspecified; Z88.6 Allergy status to analgesic agent; Z01.812 Encounter for preprocedural laboratory examination; Z20.822 Contact with and (suspected) exposure to COVID-19; Z90.49 Acquired absence of other specified parts of digestive tract
CPT/HCPCS: 43450; J2001; J2704; U0002; 43235

== ENCOUNTER → 2020-06-19 | Day surgery (SDC) | payer BC ==
[~2020-06-19] MED LIST changes: +HYDROXYCHLOROQ200 MG PO; +HYOSCYAMINE SULFATE 0.5 MG/ML INJ ONE; -SIMETHICONE 40 MG/0.6 ML BTL ONE
[2020-06-19 11:15] VITALS: BP 109/70
== END | disposition home or self-care (01) ==
LOC: OR 07:22
PROVIDERS: ATTEND Internal Medicine Gastroenterology
DX: Z09 Encounter for follow-up examination after completed treatment for conditions other than malignant neoplasm (principal); Z86.010 Personal history of colon polyps; K64.8 Other hemorrhoids; K21.9 Gastro-esophageal reflux disease without esophagitis; M32.9 Systemic lupus erythematosus, unspecified; E06.3 Autoimmune thyroiditis; Z01.812 Encounter for preprocedural laboratory examination; Z20.822 Contact with and (suspected) exposure to COVID-19
CPT/HCPCS: 45378; J1980; J2001; J2704; U0002

== ENCOUNTER → 2020-11-21 | Day surgery (SDC) | payer BC ==
[~2020-11-21] MED LIST changes: +MIDAZOLAM HCL 2 MG/2 ML VIAL ONE; +MOBIC7.5 MG PO; -PROPOFOL IV EMULSION 10 MG/ML 20 ML VIAL ONE
[2020-11-21 16:40] VITALS: BP 110/70
[2020-11-21 16:58] LABS: WBC,FECAL (FECAL LACTOFERRIN) POSITIVE (NEGATIVE)
[2020-11-22 14:50] LABS: C DIFFICILE TOXIN A&B AMP PROB NEGATIVE (NEGATIVE)
== END | disposition home or self-care (01) ==
LOC: OR 12:22
PROVIDERS: ATTEND Internal Medicine Gastroenterology
DX: K52.9 Noninfective gastroenteritis and colitis, unspecified (principal); K62.89 Other specified diseases of anus and rectum; K64.8 Other hemorrhoids; M06.9 Rheumatoid arthritis, unspecified; E06.3 Autoimmune thyroiditis; Z88.6 Allergy status to analgesic agent; Z01.812 Encounter for preprocedural laboratory examination; Z20.822 Contact with and (suspected) exposure to COVID-19; Z79.899 Other long term (current) drug therapy
CPT/HCPCS: 45380; 83630; 83993; 87177; 87328; 87493; J1980; J2001; J2250; U0002; 45378

== ENCOUNTER 2021-06-16 11:14 | Emergency (ER) | payer BC ==
[~2021-06-16] VITALS: Ht 157.5 cm; Wt 51.7 kg
[~2021-06-16 11:14] MED LIST changes: -HYOSCYAMINE SULFATE 0.5 MG/ML INJ ONE; -LIDOCAINE HCL 2% LOCAL INJ 5 ML SDV VIAL INJ ONE; -MIDAZOLAM HCL 2 MG/2 ML VIAL ONE
[2021-06-16] MEDS ORDERED: SODIUM CHLORIDE 0.9% 1000ML 1,000 ML IV STA (12:02)
[2021-06-16] MEDS ORDERED: ONDANSETRON HCL INJ 2MG/ML 2ML 2 MG/ML VIAL IV PRN (12:15)
[2021-06-16 12:31] LABS: BASOPHILS % 0.4 % (0.0-1.0); EOSINOPHILS # (AUTO) 0.1 (0.0-0.4); EOSINOPHILS % 1.8 % (0.0-6.0); HEMATOCRIT 41.3 % (34.2-44.1); HEMOGLOBIN 13.3 g/dL (12.0-16.0); LYMPHOCYTES # (AUTO) 1.7 (1.0-3.2); LYMPHOCYTES % 32.5 % (18.0-39.1); MEAN CORPUSCULAR HEMOGLOBIN 29.2 pg (28-32); MEAN CORPUSCULAR HGB CONC 32.2 g/dL (31-35); MEAN CORPUSCULAR VOLUME 90.8 fL (81-99); MONOCYTES # (AUTO) 0.4 (0.2-0.8); MONOCYTES % 8.1 % (4.4-11.3); NEUTROPHILS # (AUTO) 2.9 (2.1-6.9); PLATELET COUNT 238 x10e3/uL (140-360); RED BLOOD COUNT 4.55 x10e6/uL (3.6-5.1); RED CELL DISTRIBUTION WIDTH 12.5 % (11.7-14.4)
[2021-06-16] MEDS: FENTANYL CITRATE/PF 100MCG/2 ML INJ IV PRN ×2 (12:33→15:31)
[2021-06-16 12:45] LABS: CLARITY,URINE CLOUDY (CLEAR); COLOR,URINE YELLOW (YELLOW); KETONES,URINE NEGATIVE (NEGATIVE); LEUKOCYTE ESTERASE ,URINE NEGATIVE (NEGATIVE); NITRITE,URINE NEGATIVE (NEGATIVE); PROTEIN,URINE DIPSTICK NEGATIVE (NEGATIVE); URINE UROBILINOGEN 0.2 mg/dL (0.2 - 1)
[2021-06-16 13:16] LABS: BACTERIA,URINE FEW /HPF; EPITHELIAL CELLS,URINE RARE /LPF; RBC,URINE 0-5 /HPF (0-5); WBC,URINE (MAN) 0-5 /HPF (0-5)
[2021-06-16 13:58] LABS: ALBUMIN 4.2 g/dL (3.5-5.0); ALBUMIN/GLOBULIN RATIO 1.1 (0.8-2.0); ANION GAP 13.6 mmol/L (8-16); CREATININE, SERUM 0.73 mg/dL (0.57-1.11); POTASSIUM 3.6 mmol/L (3.5-5.1)
[2021-06-17] MEDS ORDERED: SODIUM CHLORIDE 0.9% 100 ML ONE (06:03)
[2021-06-17] MEDS ORDERED: IOPAMIDOL 370 MG/ML 100 ML INFUS..BTL INJ ONE (06:03)
== END 2021-06-16 16:28 | disposition home or self-care (01) ==
LOC: ER 11:20
DX: R10.32 Left lower quadrant pain (principal); K62.5 Hemorrhage of anus and rectum; Z98.84 Bariatric surgery status; Z87.19 Personal history of other diseases of the digestive system
CPT/HCPCS: 36415; 74174; 80053; 81001; 83690; 85025; 99283; J2405; J3010; J7030; J7050; Q9967

== ENCOUNTER → 2021-06-18 | Day surgery (SDC) | payer BC ==
[~2021-06-18] MED LIST changes: +FENTANYL CITRATE/PF 100MCG/2 ML INJ ONE; +HYOSCYAMINE SULFATE 0.5 MG/ML INJ ONE; +MIDAZOLAM HCL 2 MG/2 ML VIAL ONE
[2021-06-18 15:46] LABS: WBC,FECAL (FECAL LACTOFERRIN) NEGATIVE (NEGATIVE)
[2021-06-18 15:55] VITALS: BP 118/65
[2021-06-19 11:41] LABS: C DIFFICILE TOXIN A&B AMP PROB NEGATIVE (NEGATIVE)
== END | disposition home or self-care (01) ==
LOC: OR 09:30
PROVIDERS: ATTEND Internal Medicine Gastroenterology
DX: K52.9 Noninfective gastroenteritis and colitis, unspecified (principal); K63.89 Other specified diseases of intestine; K62.89 Other specified diseases of anus and rectum; K28.9 Gastrojejunal ulcer, unspecified as acute or chronic, without hemorrhage or perforation; K64.8 Other hemorrhoids; Z98.84 Bariatric surgery status; Z88.6 Allergy status to analgesic agent; Z01.812 Encounter for preprocedural laboratory examination; Z20.822 Contact with and (suspected) exposure to COVID-19
CPT/HCPCS: 36415; 45380; 83630; 83993; 85651; 86141; 86256; 86671; 87045; 87177; 87328; 87493; J1980; J2250; J3010; U0002; 45378

== ENCOUNTER 2021-06-20 14:33 | Emergency (ER) | payer BC ==
[~2021-06-20] VITALS: Ht 157.5 cm; Wt 51.7 kg
[~2021-06-20 14:33] MED LIST changes: -FENTANYL CITRATE/PF 100MCG/2 ML INJ ONE; +HEPARIN SOD (PORCINE) 1000 UNIT/ML SDV ONE; -HYOSCYAMINE SULFATE 0.5 MG/ML INJ ONE; -MIDAZOLAM HCL 2 MG/2 ML VIAL ONE
[2021-06-20 15:58] LABS: BASOPHILS % 0.4 % (0.0-1.0); EOSINOPHILS # (AUTO) 0.3 (0.0-0.4); EOSINOPHILS % 6.8 % (0.0-6.0); HEMATOCRIT 35.7 % (34.2-44.1); HEMOGLOBIN 11.6 g/dL (12.0-16.0); LYMPHOCYTES # (AUTO) 1.4 (1.0-3.2); LYMPHOCYTES % 28.5 % (18.0-39.1); MEAN CORPUSCULAR HEMOGLOBIN 29.4 pg (28-32); MEAN CORPUSCULAR HGB CONC 32.5 g/dL (31-35); MEAN CORPUSCULAR VOLUME 90.6 fL (81-99); MONOCYTES # (AUTO) 0.5 (0.2-0.8); MONOCYTES % 10.6 % (4.4-11.3); NEUTROPHILS # (AUTO) 2.7 (2.1-6.9); NEUTROPHILS % 53.7 % (38.7-80.0); PLATELET COUNT 217 x10e3/uL (140-360); RED BLOOD COUNT 3.94 x10e6/uL (3.6-5.1); RED CELL DISTRIBUTION WIDTH 12.4 % (11.7-14.4)
[2021-06-20 16:08] LABS: PROTHROMBIN TIME 14.1 seconds (11.9-14.5)
[2021-06-20 16:18] LABS: ALBUMIN 3.6 g/dL (3.5-5.0); ALBUMIN/GLOBULIN RATIO 1.1 (0.8-2.0); ANION GAP 10.9 mmol/L (8-16); CALCIUM 8.3 mg/dL (8.4-10.2); CREATININE, SERUM 0.74 mg/dL (0.57-1.11); POTASSIUM 3.9 mmol/L (3.5-5.1)
[2021-06-20 16:44] LABS: CLARITY,URINE HAZY (CLEAR); COLOR,URINE STRAW (YELLOW); KETONES,URINE NEGATIVE (NEGATIVE); LEUKOCYTE ESTERASE ,URINE NEGATIVE (NEGATIVE); NITRITE,URINE NEGATIVE (NEGATIVE); PROTEIN,URINE DIPSTICK NEGATIVE (NEGATIVE); URINE UROBILINOGEN 0.2 mg/dL (0.2 - 1)
[2021-06-20 16:54] LABS: BACTERIA,URINE FEW /HPF; RBC,URINE 21-50 /HPF (0-5)
== END 2021-06-20 19:47 | disposition home or self-care (01) ==
LOC: ER 15:39
DX: K62.5 Hemorrhage of anus and rectum (principal); R10.32 Left lower quadrant pain; R11.2 Nausea with vomiting, unspecified; Z87.19 Personal history of other diseases of the digestive system; Z98.84 Bariatric surgery status
CPT/HCPCS: 36415; 78278; 80053; 81001; 81025; 85025; 85610; 85730; 99284; A9512 ×2; J1644

== ENCOUNTER 2021-08-15 11:32 | Observation (INO) | payer BC ==
[2021-08-14 08:37] LABS: EOSINOPHILS # (AUTO) 0.1 (0.0-0.4); EOSINOPHILS % 3.8 % (0.0-6.0); HEMATOCRIT 38.5 % (34.2-44.1); HEMOGLOBIN 11.8 g/dL (12.0-16.0); LYMPHOCYTES # (AUTO) 1.2 (1.0-3.2); LYMPHOCYTES % 42.6 % (18.0-39.1); MEAN CORPUSCULAR HEMOGLOBIN 28.8 pg (28-32); MEAN CORPUSCULAR HGB CONC 30.6 g/dL (31-35); MEAN CORPUSCULAR VOLUME 93.9 fL (81-99); MONOCYTES # (AUTO) 0.3 (0.2-0.8); NEUTROPHILS # (AUTO) 1.2 (2.1-6.9); NEUTROPHILS % 41.6 % (38.7-80.0); PLATELET COUNT 241 x10e3/uL (140-360); RED CELL DISTRIBUTION WIDTH 12.8 % (11.7-14.4)
[2021-08-14 08:59] LABS: ANION GAP 11.2 mmol/L (8-16); CALCIUM 8.6 mg/dL (8.4-10.2); CREATININE, SERUM 0.78 mg/dL (0.57-1.11); POTASSIUM 4.2 mmol/L (3.5-5.1)
[~2021-08-15] VITALS: Ht 157.5 cm; Wt 55.3 kg
[~2021-08-15 11:32] MED LIST changes: -HEPARIN SOD (PORCINE) 1000 UNIT/ML SDV ONE
[2021-08-15] MEDS ORDERED: LIDOCAINE HCL 2% LOCAL INJ 5 ML SDV VIAL INJ ONE (12:12)
[2021-08-15] MEDS ORDERED: PROPOFOL IV EMULSION 10 MG/ML 20 ML VIAL ONE (12:12)
[2021-08-15] MEDS ORDERED: DEXAMETHASONE SOD PHOS INJ 4 MG/ML SDV ONE (12:12)
[2021-08-15] MEDS ORDERED: POVIDONE IODINE 0.05% 0.05 % ML PO ONE (12:12)
[2021-08-15] MEDS ORDERED: ONDANSETRON HCL INJ 2MG/ML 2ML 2 MG/ML VIAL ONE (12:12)
[2021-08-15] MEDS ORDERED: SEVOFLURANE INHAL SOLN 250 ML PEN BTL ONE (12:12)
[2021-08-15] MEDS ORDERED: MIDAZOLAM HCL 2 MG/2 ML VIAL ONE (12:58)
[2021-08-15] MEDS ORDERED: FENTANYL CITRATE/PF 100MCG/2 ML INJ ONE (12:58)
[2021-08-15] MEDS ORDERED: LIDOCAINE HCL 2% JELLY 5 ML TUBE ONE (15:47)
[2021-08-15] MEDS ORDERED: LIDOCAINE 2% /EPINEPHRINE 20 ML SDV INJ ONE (15:47)
[2021-08-15] MEDS: ONDANSETRON HCL INJ 2MG/ML 2ML 2 MG/ML VIAL IV PRN (17:15)
[2021-08-15] MEDS ORDERED: MEPERIDINE HCL INJ 25 MG/ML VIAL ONE (17:17)
[2021-08-15] MEDS ORDERED: METOCLOPRAMIDE HCL 10 MG/2ML VIAL ONE (17:27)
[2021-08-15 18:38] VITALS: BP 105/67
[2021-08-15 18:40] VITALS: BP 108/80
[2021-08-15 18:46] VITALS: BP 108/80
[2021-08-15 19:59] VITALS: BP 109/82
[2021-08-15 20:00] VITALS: BP 109/82
[2021-08-15] MEDS: HYDROMORPHONE 1MG/1ML INJ IV PRN (20:48)
[2021-08-15 20:49] VITALS: BP 109/82
[2021-08-15] MEDS ORDERED: LIBRAX CAPSULE1 EACH PO (21:03)
[2021-08-16] VITALS (9 sets, daily range): BP systolic 100–105; BP diastolic 64–73
[2021-08-16] MEDS: HYDROMORPHONE 1MG/1ML INJ IV PRN ×7 (02:31→20:57)
[2021-08-16] MEDS: SODIUM CHLORIDE 0.9% 1000ML 1,000 ML IV SCH ×3 (05:31→17:33)
[2021-08-16] MEDS: DIAZEPAM 5 MG TAB PO PRN ×3 (05:56→19:44)
[2021-08-16 06:14] LABS: BASOPHILS % 0.4 % (0.0-1.0); EOSINOPHILS % 0.1 % (0.0-6.0); HEMOGLOBIN 10.9 g/dL (12.0-16.0); LYMPHOCYTES # (AUTO) 1.3 (1.0-3.2); LYMPHOCYTES % 16.8 % (18.0-39.1); MEAN CORPUSCULAR HEMOGLOBIN 28.8 pg (28-32); MEAN CORPUSCULAR HGB CONC 31.1 g/dL (31-35); MEAN CORPUSCULAR VOLUME 92.3 fL (81-99); MONOCYTES # (AUTO) 0.6 (0.2-0.8); MONOCYTES % 7.4 % (4.4-11.3); NEUTROPHILS # (AUTO) 5.8 (2.1-6.9); NEUTROPHILS % 74.9 % (38.7-80.0); PLATELET COUNT 229 x10e3/uL (140-360); RED BLOOD COUNT 3.79 x10e6/uL (3.6-5.1); RED CELL DISTRIBUTION WIDTH 12.6 % (11.7-14.4)
[2021-08-16 06:28] LABS: ANION GAP 14.2 mmol/L (8-16); CALCIUM 8.1 mg/dL (8.4-10.2); CREATININE, SERUM 0.72 mg/dL (0.57-1.11); POTASSIUM 4.2 mmol/L (3.5-5.1)
[2021-08-16] MEDS: ONDANSETRON HCL INJ 2MG/ML 2ML 2 MG/ML VIAL IV PRN ×2 (11:32→18:00)
[2021-08-16] MEDS: TRIAMCINOLONE 0.1% OINTMENT 15 GM TUBE TP SCH ×2 (15:04→21:00)
[2021-08-17] MEDS: HYDROMORPHONE 1MG/1ML INJ IV PRN ×5 (00:08→12:45)
[2021-08-17 00:22] VITALS: BP 100/58
[2021-08-17] MEDS: SODIUM CHLORIDE 0.9% 1000ML 1,000 ML IV SCH (03:29)
[2021-08-17 04:00] VITALS: BP 107/71
[2021-08-17 07:21] VITALS: BP 107/70
[2021-08-17] MEDS: DIAZEPAM 5 MG TAB PO PRN (08:47)
[2021-08-17 09:00] VITALS: BP 107/70
[2021-08-17] MEDS: TRIAMCINOLONE 0.1% OINTMENT 15 GM TUBE TP SCH ×2 (09:01→15:00)
[2021-08-17 11:23] VITALS: BP 106/70
== END 2021-08-17 15:36 | disposition home or self-care (01) ==
LOC: OR 11:32 → PACU V 17:09 → MED/SURG 18:37
PROVIDERS: ADMIT Surgery; ATTEND Surgery
DX: K64.5 Perianal venous thrombosis (principal); K64.8 Other hemorrhoids; F41.9 Anxiety disorder, unspecified; Z01.810 Encounter for preprocedural cardiovascular examination; Z01.812 Encounter for preprocedural laboratory examination; Z20.822 Contact with and (suspected) exposure to COVID-19
CPT/HCPCS: 0223U; 36415 ×2; 46260; 80048 ×2; 85025 ×2; 88304; 93005; 96360; 96361; C9113 ×2; G0378 ×3; J0694; J1100; J1170 ×3; J2001 ×3; J2175; J2405 ×2; J2704; J2765; J7030 ×2; J2250; J3010

== ENCOUNTER 2021-08-20 17:48 | Emergency (ER) | payer BC ==
[~2021-08-20] VITALS: Ht 157.5 cm; Wt 55.3 kg
[~2021-08-20 17:48] MED LIST changes: +LIBRAX CAPSULE1 EACH PO
[2021-08-20] MEDS ORDERED: PEG (High)/E-LYTE SOLN 4,000 ML BTL PO ONE (18:30)
[2021-08-20] MEDS ORDERED: HYDROCODONE/APAP 5MG-325MG TAB PO ONE (18:30)
[2021-08-20] MEDS ORDERED: TAMSULOSIN HCL 0.4 MG CAP PO ONE (18:30)
[2021-08-20] MEDS ORDERED: FLOMAX0.4 MG PO (19:19)
== END 2021-08-20 20:30 | disposition home or self-care (01) ==
LOC: ER 17:53
DX: R33.9 Retention of urine, unspecified (principal); K59.00 Constipation, unspecified; M06.9 Rheumatoid arthritis, unspecified
CPT/HCPCS: 51700; 74018; 99283